=== PATIENT | female | born 1970 | race Caucasian/White ===

== ENCOUNTER 2017-10-03 14:37 | Emergency (ER) | payer OTHER ==
[~2017-10-03] VITALS: Ht 162.6 cm; Wt 68.0 kg
[~2017-10-03 14:37] MED LIST: ABILIFY; ALBU90OI INH; AMOCLA500 PO; AMOCLA875 PO; AMOX500 PO; ANTOXYBENA OT; ARIP10 PO; ARIP20 PO; Amoxicillin500 MG PO; BENZ100A PO; CALCA500CH PO; CARI350; CEPH500; CEPH500 PO; CETI10 PO; CIME400 PO; CIPR500 PO; CLIN150 PO; CLIN300 PO; CLOT1TC TOP; CONESTTC PV; CYCL10 PO; Cleocin HCl300 MG PO; DIPATR PO; DIPH25 PO; DIPH50 PO; DOXY100 PO; Doxycycline Mo100 M1 PO; HYDACE5 PO; IBUP600 PO; IBUP800; IBUP800 PO; KETO15TC TP; LORA10ER PO; METR500 PO; MOMENI; MULVITMINE PO; MUPI2TC TOP; MUPIROCIN15 GM TOP; Murine Ear Wax15 ML OT; NAPR500 PO; NAPR550 PO; NEOPOLHCSU AD; NEOPOLHCSU OT; NEOPOLHYDS OT; NITR100CA PO; Naprosyn500 MG PO; ONDA4 PO; PENVK500 PO; PERM5TC TOP; PRED20 PO; PROM25 PO; Peridex480 ML SS; QUET25 PO; RISP2 PO; RXCLIN PO; RXHYDACE PO; SPACE CHAMBER1 EACH MC; SULTRIDS PO; Seroquel PO; TRAM50 PO; Veetids 500500 MG PO; Vibramycin100 MG PO; [UNRECOGNIZED DRUG - REMARK]
[2017-10-03 16:20] LABS: Source, Urine Clean Catch
[2017-10-03 16:23] LABS: Bilirubin, Urine Neg (Neg); Blood, Urine Neg (Neg); Glucose Qualitative, Urine Neg (Neg); Ketones, Urine Neg (Neg); Leukocyte Esterase, Urine Neg (Neg); Nitrite, Urine Neg (Neg); Protein, Urine Neg (Neg); Urobilinogen, Urine NORM (Normal)
[2017-10-03 16:37] LABS: Appearance, Urine Hazy (Clear); Color, Urine Yellow (P-Yellow)
[2017-10-03 16:38] LABS: Bacteria Many /hpf; Red Blood Cells, Urine 0-2 /hpf (0-2); Squamous Epithelial Cells Many /hpf (Few)
[2017-10-03] MEDS ORDERED: Flagyl500 MG PO (20:18)
[2017-10-03] MEDS ORDERED: Diflucan150 MG PO (20:18)
[2017-10-03 21:14] LABS: Candida species (DNA Probe) Negative (NEGATIVE); G. vaginalis (DNA Probe) Positive (NEGATIVE); T. vaginalis (DNA Probe) Negative (NEGATIVE)
[2018-03-31] MEDS ORDERED: Monodox100 MG PO (13:53)
== END 2017-10-03 20:42 | disposition home or self-care (01) ==
LOC: ER 14:37
PROVIDERS: Emergency Medicine
DX: N72 Inflammatory disease of cervix uteri (principal); B96.89 Other specified bacterial agents as the cause of diseases classified elsewhere; Z88.2 Allergy status to sulfonamides; Z79.899 Other long term (current) drug therapy; Z86.19 Personal history of other infectious and parasitic diseases; Z87.891 Personal history of nicotine dependence
CPT/HCPCS: 81001; 81025; 87086; 87480; 87491; 87510; 87591; 87660; 96372; 99284; J0696

== ENCOUNTER 2018-04-17 14:13 | Emergency (ER) | payer OTHER ==
[~2018-04-17] VITALS: Ht 162.6 cm; Wt 68.0 kg
[~2018-04-17 14:13] MED LIST changes: +Diflucan150 MG PO; +Flagyl500 MG PO; +Monodox100 MG PO
[2018-04-17] MEDS ORDERED: Bactrim Ds Tab1 EACH PO (14:59)
[2018-04-17] MEDS ORDERED: Keflex500 MG PO (14:59)
== END 2018-04-17 15:08 | disposition home or self-care (01) ==
LOC: ER 14:13
DX: L03.116 Cellulitis of left lower limb (principal); F20.9 Schizophrenia, unspecified; F17.200 Nicotine dependence, unspecified, uncomplicated; Z79.899 Other long term (current) drug therapy
CPT/HCPCS: 81000; 99283

== ENCOUNTER → 2018-10-19 | Outpatient (CLI) | payer OTHER ==
[~2018-10-19] MED LIST changes: +Bactrim Ds Tab1 EACH PO; +Keflex500 MG PO
[2018-10-23 09:14] LABS: CHLAMYDIA BY NAA Negative (Negative); GONOCOCCUS BY NAA Negative (Negative); TRICH VAG BY NAA Negative (Negative)
== END | disposition home or self-care (01) ==
LOC: LAB SHORT 17:43 → LAB 17:43
PROVIDERS: Nurse Practitioner Family
DX: N91.2 Amenorrhea, unspecified (principal); Z72.51 High risk heterosexual behavior
CPT/HCPCS: 87491; 87591; 87661

== ENCOUNTER → 2018-12-08 | Outpatient (CLI) | payer OTHER ==
[2018-12-08 16:44] LABS: BASOPHILS ABSOLUTE AUTO 0.05 K/mm3 (0.00-0.23); BASOPHILS PERCENT AUTO 1 % (0-2); EOSINOPHILS ABSOLUTE AUTO 0.11 K/mm3 (0.00-0.68); EOSINOPHILS PERCENT AUTO 2 % (0-6); Hematocrit 36.4 % (33.0-51.0); Hemoglobin 12.5 g/dL (11.5-16.0); IMMATURE GRAN ABSOLUTE AUTO 0.01 K/mm3 (0.00-0.10); IMMATURE GRAN PERCENT AUTO 0 % (0-1); LYMPHOCYTES ABSOLUTE AUTO 2.31 K/mm3 (0.84-5.20); LYMPHOCYTES PERCENT AUTO 40 % (21-46); MONOCYTES ABSOLUTE AUTO 0.37 K/mm3 (0.16-1.47); MONOCYTES PERCENT AUTO 6 % (4-13); Mean Corpuscular HGB 29.6 pg (26.0-34.0); Mean Corpuscular HGB Conc 34.3 g/dL (31.5-36.5); Mean Corpuscular Volume 86 fL (80-100); Mean Platelet Volume 8.6 fL (9.1-12.4); NEUTROPHILS ABSOLUTE AUTO 2.95 K/mm3 (1.96-9.15); NEUTROPHILS PERCENT AUTO 51 % (41-73); Platelet Count 345 K/mm3 (150-400); RDW Coefficient Variation 12.5 % (11.7-14.2); RDW Standard Deviation 38.8 fL (35.1-46.3); Red Blood Cell Count 4.22 M/mm3 (3.80-5.20)
[2018-12-08 16:54] LABS: Albumin, Blood 4.3 g/dL (3.4-5.0); Albumin/Globulin Ratio 1.2 (0.8-1.8); Bilirubin, Total 0.4 mg/dL (0.1-1.0); Calcium, Blood 9.2 mg/dL (8.5-10.1); Globulin, Blood 3.5 g/dL (2.2-4.0); Potassium, Blood 3.6 mmol/L (3.5-5.5); Total Protein, Blood 7.8 g/dL (6.4-8.2)
== END | disposition home or self-care (01) ==
LOC: LAB EV 16:38 → LAB SHORT 16:38
PROVIDERS: Physician Assistant
DX: L08.9 Local infection of the skin and subcutaneous tissue, unspecified (principal)
CPT/HCPCS: 36415; 80053; 85025

== ENCOUNTER 2019-03-11 16:32 | Emergency (ER) | payer OTHER ==
[~2019-03-11] VITALS: Ht 162.6 cm; Wt 65.8 kg
[2019-03-11] MEDS ORDERED: Monodox100 MG PO (17:23)
[2019-03-11] MEDS ORDERED: CEPH500 PO (17:23)
[2019-03-11] MEDS ORDERED: IBUP800 PO (17:26)
== END 2019-03-11 17:32 | disposition home or self-care (01) ==
LOC: ER 16:32
DX: L02.416 Cutaneous abscess of left lower limb (principal); L03.116 Cellulitis of left lower limb; Z79.899 Other long term (current) drug therapy; F43.10 Post-traumatic stress disorder, unspecified; F20.9 Schizophrenia, unspecified; F17.200 Nicotine dependence, unspecified, uncomplicated
CPT/HCPCS: 99282

== ENCOUNTER → 2019-03-16 | Outpatient (CLI) | payer OTHER ==
[2019-03-18 07:07] LABS: CHLAMYDIA TRACHOMATIS, NAA Negative (Negative); NEISSERIA GONORRHOEAE, NAA Negative (Negative)
[2019-03-20 15:07] LABS: HPV 16 Negative (Negative); HPV 18 Negative (Negative); HPV OTHER HR TYPES Negative (Negative)
== END | disposition home or self-care (01) ==
LOC: LAB 14:00 → LAB SHORT 14:00
PROVIDERS: Nurse Practitioner Family
DX: Z01.419 Encounter for gynecological examination (general) (routine) without abnormal findings (principal)
CPT/HCPCS: 87491; 87591; 87624; G0123

== ENCOUNTER 2019-03-24 17:37 | Emergency (ER) | payer OTHER ==
[~2019-03-24] VITALS: Ht 162.6 cm; Wt 66.2 kg
[2019-03-24] MEDS ORDERED: Monodox100 MG PO (19:07)
[2019-03-24] MEDS ORDERED: IBUP600 PO (19:07)
== END 2019-03-24 19:16 | disposition home or self-care (01) ==
LOC: ER 17:37
DX: B37.3 Candidiasis of vulva and vagina (principal); L02.414 Cutaneous abscess of left upper limb; L02.413 Cutaneous abscess of right upper limb; L02.416 Cutaneous abscess of left lower limb; L02.415 Cutaneous abscess of right lower limb; Z76.0 Encounter for issue of repeat prescription; Z88.2 Allergy status to sulfonamides; Z79.899 Other long term (current) drug therapy; F43.10 Post-traumatic stress disorder, unspecified; F20.9 Schizophrenia, unspecified; F17.200 Nicotine dependence, unspecified, uncomplicated
CPT/HCPCS: 99283

== ENCOUNTER 2019-07-10 11:46 | Emergency (ER) | payer OTHER ==
[~2019-07-10] VITALS: Ht 162.6 cm; Wt 54.4 kg
== END 2019-07-10 13:22 | disposition home or self-care (01) ==
LOC: ER 11:46
DX: F41.9 Anxiety disorder, unspecified (principal); F20.9 Schizophrenia, unspecified; Z88.2 Allergy status to sulfonamides; Z79.899 Other long term (current) drug therapy
CPT/HCPCS: 99283

== ENCOUNTER 2019-08-30 12:11 | Observation (INO) | payer OTHER ==
[~2019-08-30] VITALS: Ht 162.6 cm; Wt 54.4 kg
[2019-08-30 13:37] LABS: Source, Urine Catheter
[2019-08-30 13:42] LABS: Blood, Urine Neg (Neg); Glucose Qualitative, Urine Neg (Neg); Ketones, Urine 3+ (Neg); Leukocyte Esterase, Urine 1+ (Neg); Nitrite, Urine Neg (Neg); Protein, Urine 1+ (Neg); Urobilinogen, Urine 2+ (Normal)
[2019-08-30 13:56] LABS: U Amphetamine Screen DETECTED; U Barbituate Screen Not Detected; U Benzodiazapine Screen Not Detected; U Buprenorphine Screen Not Detected; U Cannabinoids Screen Not Detected; U Cocaine Screen Not Detected; U Methadone Screen Not Detected; U Methamphetamine Screen Not Detected; U Opiates Screen Not Detected; U Oxycodone Screen Not Detected; U Phencyclidine Screen Not Detected; U Propoxyphene Screen Not Detected
[2019-08-30 13:58] LABS: Appearance, Urine Hazy (Clear); Bilirubin, Urine 1+ (Neg); Color, Urine Yellow (P-Yellow)
[2019-08-30 13:59] LABS: Bacteria Mod /hpf; Calcium Oxalate Crystals Mod /hpf; Mucus Mod (0-Heavy); Red Blood Cells, Urine 0-2 /hpf (0-2); Squamous Epithelial Cells Few /hpf (Few)
[2019-08-30 15:06] LABS: BASOPHILS ABSOLUTE AUTO 0.03 K/mm3 (0.00-0.23); BASOPHILS PERCENT AUTO 0 % (0-2); EOSINOPHILS ABSOLUTE AUTO 0.06 K/mm3 (0.00-0.68); EOSINOPHILS PERCENT AUTO 1 % (0-6); Hematocrit 45.5 % (33.0-51.0); Hemoglobin 14.7 g/dL (11.5-16.0); IMMATURE GRAN ABSOLUTE AUTO 0.01 K/mm3 (0.00-0.10); IMMATURE GRAN PERCENT AUTO 0 % (0-1); LYMPHOCYTES ABSOLUTE AUTO 1.43 K/mm3 (0.84-5.20); LYMPHOCYTES PERCENT AUTO 20 % (21-46); MONOCYTES ABSOLUTE AUTO 0.34 K/mm3 (0.16-1.47); MONOCYTES PERCENT AUTO 5 % (4-13); Mean Corpuscular HGB 29.4 pg (26.0-34.0); Mean Corpuscular HGB Conc 32.3 g/dL (31.5-36.5); Mean Corpuscular Volume 91 fL (80-100); NEUTROPHILS ABSOLUTE AUTO 5.19 K/mm3 (1.96-9.15); NEUTROPHILS PERCENT AUTO 74 % (41-73); RDW Coefficient Variation 12.8 % (11.7-14.2); RDW Standard Deviation 42.8 fL (35.1-46.3); White Blood Cell Count 7.06 K/mm3 (4.00-11.30)
[2019-08-30 15:10] LABS: Mean Platelet Volume 9.8 fL (9.1-12.4); Platelet Count 317 K/mm3 (150-400)
[2019-08-30 15:27] LABS: Alanine Aminotransfer (ALT/SGP 30 U/L (12-78); Albumin, Blood 4.2 g/dL (3.4-5.0); Albumin/Globulin Ratio 1.1 (0.8-1.8); Alk Phos 68 U/L (50-136); Anion Gap 8 mmol/L (6-16); Aspartate Aminotrans (AST/SGOT 28 U/L (12-37); Bilirubin, Total 0.7 mg/dL (0.1-1.0); Blood Urea Nitrogen 17 mg/dL (8-24); Bun/Creatinine Ratio 26.3 (12.0-20.0); CO2, Blood 25 mmol/L (21-32); Calcium, Blood 9.7 mg/dL (8.5-10.1); Chloride, Blood 110 mmol/L (98-108); Creatinine, Blood 0.65 mg/dL (0.40-1.00); Globulin, Blood 3.9 g/dL (2.2-4.0); Glomerular Filtration Rate >60 (60-); Glucose, Blood 80 mg/dL (70-99); Potassium, Blood 4.3 mmol/L (3.5-5.5); Sodium, Blood 143 mmol/L (136-145); Total Protein, Blood 8.1 g/dL (6.4-8.2)
[2019-08-30 15:36] LABS: Ethanol (Alcohol), Blood, Med <3 mg/dL
== END 2019-08-31 03:44 | disposition home or self-care (01) ==
LOC: ER 12:11 → EOR 12:12
PROVIDERS: Emergency Medicine; ADMIT Emergency Medicine
DX: F15.188 Other stimulant abuse with other stimulant-induced disorder (principal); F20.0 Paranoid schizophrenia; F43.10 Post-traumatic stress disorder, unspecified; F17.210 Nicotine dependence, cigarettes, uncomplicated; B19.20 Unspecified viral hepatitis C without hepatic coma; Z88.2 Allergy status to sulfonamides
CPT/HCPCS: 80053; 81001; 81025; 84443; 85025; 87086; 96360; 96361; 96372-59; 99285-25; G0378; G0480; J1200; J1630; J2060; J7030; Q3014

== ENCOUNTER 2019-11-07 16:20 | Observation (INO) | payer OTHER ==
[~2019-11-07] VITALS: Ht 165.1 cm; Wt 45.4 kg
[2019-11-07 17:20] LABS: BASOPHILS ABSOLUTE AUTO 0.03 K/mm3 (0.00-0.23); BASOPHILS PERCENT AUTO 0 % (0-2); EOSINOPHILS ABSOLUTE AUTO 0.03 K/mm3 (0.00-0.68); EOSINOPHILS PERCENT AUTO 0 % (0-6); Hematocrit 51.8 % (33.0-51.0); Hemoglobin 16.7 g/dL (11.5-16.0); IMMATURE GRAN ABSOLUTE AUTO 0.01 K/mm3 (0.00-0.10); IMMATURE GRAN PERCENT AUTO 0 % (0-1); LYMPHOCYTES ABSOLUTE AUTO 2.17 K/mm3 (0.84-5.20); LYMPHOCYTES PERCENT AUTO 32 % (21-46); MONOCYTES ABSOLUTE AUTO 0.32 K/mm3 (0.16-1.47); MONOCYTES PERCENT AUTO 5 % (4-13); Mean Corpuscular HGB 29.2 pg (26.0-34.0); Mean Corpuscular HGB Conc 32.2 g/dL (31.5-36.5); Mean Corpuscular Volume 91 fL (80-100); Mean Platelet Volume 8.3 fL (9.1-12.4); NEUTROPHILS ABSOLUTE AUTO 4.24 K/mm3 (1.96-9.15); NEUTROPHILS PERCENT AUTO 63 % (41-73); Platelet Count 398 K/mm3 (150-400); RDW Coefficient Variation 13.2 % (11.7-14.2); Red Blood Cell Count 5.72 M/mm3 (3.80-5.20)
[2019-11-07 17:52] LABS: Alanine Aminotransfer (ALT/SGP 33 U/L (12-78); Albumin, Blood 4.3 g/dL (3.4-5.0); Albumin/Globulin Ratio 0.9 (0.8-1.8); Alk Phos 79 U/L (50-136); Anion Gap 5 mmol/L (6-16); Aspartate Aminotrans (AST/SGOT 22 U/L (12-37); Bilirubin, Total 0.7 mg/dL (0.1-1.0); Blood Urea Nitrogen 21 mg/dL (8-24); Bun/Creatinine Ratio 34.6 (12.0-20.0); CO2, Blood 28 mmol/L (21-32); Calcium, Blood 10.1 mg/dL (8.5-10.1); Chloride, Blood 106 mmol/L (98-108); Creatinine, Blood 0.61 mg/dL (0.40-1.00); Ethanol (Alcohol), Blood, Med <3 mg/dL; Globulin, Blood 4.6 g/dL (2.2-4.0); Glomerular Filtration Rate >60 (60-); Glucose, Blood 81 mg/dL (70-99); Potassium, Blood 4.2 mmol/L (3.5-5.5); Sodium, Blood 139 mmol/L (136-145); Total Protein, Blood 8.9 g/dL (6.4-8.2)
[2019-11-07 22:41] LABS: Source, Urine Clean Catch
[2019-11-07 22:49] LABS: Blood, Urine Neg (Neg); Glucose Qualitative, Urine Neg (Neg); Ketones, Urine 3+ (Neg); Leukocyte Esterase, Urine 1+ (Neg); Nitrite, Urine Neg (Neg); Protein, Urine 1+ (Neg); Urobilinogen, Urine 1+ (Normal)
[2019-11-07 23:00] LABS: U Amphetamine Screen Not Detected; U Barbituate Screen Not Detected; U Benzodiazapine Screen Not Detected; U Buprenorphine Screen Not Detected; U Cannabinoids Screen Not Detected; U Cocaine Screen Not Detected; U Methadone Screen Not Detected; U Methamphetamine Screen DETECTED; U Opiates Screen Not Detected; U Oxycodone Screen Not Detected; U Phencyclidine Screen Not Detected; U Propoxyphene Screen Not Detected
[2019-11-07 23:01] LABS: Appearance, Urine Hazy (Clear); Bilirubin, Urine 1+ (Neg); Color, Urine Yellow (P-Yellow)
[2019-11-07 23:02] LABS: Amorphous Light (0-Heavy); Bacteria Mod /hpf; Calcium Oxalate Crystals Few /hpf; Mucus Heavy (0-Heavy); Red Blood Cells, Urine Not Seen /hpf (0-2); Squamous Epithelial Cells Few /hpf (Few)
== END 2019-11-13 14:15 | disposition home or self-care (01) ==
LOC: ER 16:20 → EOR 16:21
PROVIDERS: Physician Assistant; ADMIT Emergency Medicine
DX: R62.7 Adult failure to thrive (principal); F20.9 Schizophrenia, unspecified; F17.210 Nicotine dependence, cigarettes, uncomplicated; R53.81 Other malaise; F19.10 Other psychoactive substance abuse, uncomplicated; N39.0 Urinary tract infection, site not specified; F29 Unspecified psychosis not due to a substance or known physiological condition; Z88.2 Allergy status to sulfonamides
CPT/HCPCS: 36415; 80053; 81001; 81025; 84443; 85025; 87086; 93005; 93010; 99285-25; A9270-GY; G0378; G0480

== ENCOUNTER 2020-01-29 14:39 | Emergency (ER) | payer OTHER ==
[~2020-01-29] VITALS: Ht 162.6 cm; Wt 49.9 kg
== END 2020-01-29 15:28 | disposition home or self-care (01) ==
LOC: ER 14:39
DX: F20.5 Residual schizophrenia (principal); F19.10 Other psychoactive substance abuse, uncomplicated; F17.200 Nicotine dependence, unspecified, uncomplicated; Z91.14 Patient's other noncompliance with medication regimen; Z59.0 Homelessness; Z88.2 Allergy status to sulfonamides
CPT/HCPCS: 99284

== ENCOUNTER 2020-04-10 15:33 | Observation (INO) | payer OTHER ==
[~2020-04-10] VITALS: Ht 162.6 cm; Wt 50.0 kg
[~2020-04-10 15:33] MED LIST changes: +ACET325 PO; +MIRALAX17 GM PO
[2020-04-10] MEDS ORDERED: Seroquel Xr50 MG PO (15:49)
[2020-04-21 00:32] LABS: Source, Urine Voided
[2020-04-21 00:37] LABS: Appearance, Urine Clear (Clear); Bilirubin, Urine Neg (Neg); Blood, Urine Neg (Neg); Color, Urine Yellow (P-Yellow); Glucose Qualitative, Urine Neg (Neg); Ketones, Urine Neg (Neg); Leukocyte Esterase, Urine 2+ (Neg); Nitrite, Urine Neg (Neg); Protein, Urine Neg (Neg); Specific Gravity, Urine 1.025 (1.003-1.022); Urobilinogen, Urine NORM (Normal)
[2020-04-21 00:43] LABS: Bacteria Mod /hpf; Red Blood Cells, Urine 0-2 /hpf (0-2); Squamous Epithelial Cells Mod /hpf (Few)
[2020-04-22 09:29] LABS: BASOPHILS ABSOLUTE AUTO 0.03 K/mm3 (0.00-0.23); BASOPHILS PERCENT AUTO 1 % (0-2); EOSINOPHILS ABSOLUTE AUTO 0.07 K/mm3 (0.00-0.68); EOSINOPHILS PERCENT AUTO 1 % (0-6); Hematocrit 41.1 % (33.0-51.0); Hemoglobin 12.8 g/dL (11.5-16.0); IMMATURE GRAN ABSOLUTE AUTO 0.01 K/mm3 (0.00-0.10); IMMATURE GRAN PERCENT AUTO 0 % (0-1); LYMPHOCYTES ABSOLUTE AUTO 2.02 K/mm3 (0.84-5.20); LYMPHOCYTES PERCENT AUTO 36 % (21-46); MONOCYTES PERCENT AUTO 7 % (4-13); Mean Corpuscular HGB 29.8 pg (26.0-34.0); Mean Corpuscular HGB Conc 31.1 g/dL (31.5-36.5); Mean Corpuscular Volume 96 fL (80-100); NEUTROPHILS ABSOLUTE AUTO 3.02 K/mm3 (1.96-9.15); NEUTROPHILS PERCENT AUTO 54 % (41-73); Platelet Count 374 K/mm3 (150-400); RDW Coefficient Variation 14.3 % (11.7-14.2); RDW Standard Deviation 50.4 fL (35.1-46.3); Red Blood Cell Count 4.29 M/mm3 (3.80-5.20); White Blood Cell Count 5.55 K/mm3 (4.00-11.30)
[2020-04-22 09:41] LABS: Acetaminophen, Random 2.2 ug/mL (10.0-30.0); Alanine Aminotransfer (ALT/SGP 67 U/L (12-78); Albumin, Blood 3.8 g/dL (3.4-5.0); Alk Phos 64 U/L (50-136); Anion Gap 5 mmol/L (6-16); Aspartate Aminotrans (AST/SGOT 33 U/L (12-37); Bilirubin, Total 0.2 mg/dL (0.1-1.0); Blood Urea Nitrogen 22 mg/dL (8-24); Bun/Creatinine Ratio 41.3 (12.0-20.0); CO2, Blood 28 mmol/L (21-32); Calcium, Blood 9.1 mg/dL (8.5-10.1); Chloride, Blood 106 mmol/L (98-108); Creatinine, Blood 0.53 mg/dL (0.40-1.00); Ethanol (Alcohol), Blood, Med 6 mg/dL; Glomerular Filtration Rate >60 (60-); Glucose, Blood 76 mg/dL (70-99); Potassium, Blood 4.8 mmol/L (3.5-5.5); Sodium, Blood 139 mmol/L (136-145); Total Protein, Blood 7.8 g/dL (6.4-8.2)
[2020-04-27 18:25] LABS: Source, Urine Clean Catch
[2020-04-27 18:27] LABS: Bilirubin, Urine Neg (Neg); Blood, Urine 1+ (Neg); Glucose Qualitative, Urine Neg (Neg); Ketones, Urine Neg (Neg); Leukocyte Esterase, Urine 1+ (Neg); Nitrite, Urine Neg (Neg); Protein, Urine Neg (Neg); Urobilinogen, Urine NORM (Normal)
[2020-04-27 18:36] LABS: Appearance, Urine Clear (Clear); Color, Urine Pale Yellow (P-Yellow)
[2020-04-27 18:38] LABS: Squamous Epithelial Cells Few /hpf (Few); White Blood Cells, Urine 0-2 /hpf (0-5)
[2020-04-27 18:39] LABS: Bacteria Rare /hpf
== END 2020-05-01 13:30 ==
LOC: ER 15:33 → EOR 15:34
PROVIDERS: Emergency Medicine; ADMIT Emergency Medicine
DX: F23 Brief psychotic disorder (principal); Z20.828 Contact with and (suspected) exposure to other viral communicable diseases; Z88.2 Allergy status to sulfonamides
CPT/HCPCS: 80053; 81001; 85025; 87086; 99285; G0378; G0480; U0002

== ENCOUNTER → 2020-05-26 | Outpatient (CLI) | payer OTHER ==
[~2020-05-26] MED LIST changes: +Seroquel Xr50 MG PO
[2020-05-27 11:13] LABS: Candida species (DNA Probe) Negative (NEGATIVE); G. vaginalis (DNA Probe) Negative (NEGATIVE); T. vaginalis (DNA Probe) Negative (NEGATIVE)
== END ==
LOC: LAB 19:58 → LAB SHORT 19:58
PROVIDERS: Nurse Practitioner
DX: L29.3 Anogenital pruritus, unspecified (principal)
CPT/HCPCS: 87480; 87510; 87660

== ENCOUNTER → 2020-06-16 | Outpatient (CLI) | payer OTHER ==
[2020-06-16 13:22] LABS: Adenovirus F 40/41 Not Detected (NOT DETECT); Astrovirus Not Detected (NOT DETECT); Campylobacter Sp Not Detected (NOT DETECT); Cryptosporidium Not Detected (NOT DETECT); Cyclospora Cayetanensis Not Detected (NOT DETECT); E. Coli O157 Not Detected (NOT DETECT); Entamoeba Histolytica Not Detected (NOT DETECT); Enteroaggregative E. coli-EAEC Not Detected (NOT DETECT); Enteropathogenic E. coli-EPEC Not Detected (NOT DETECT); Enterotoxigenic E. coli-ETEC Not Detected (NOT DETECT); Giardia Lamblia Not Detected (NOT DETECT); Norovirus GI/GII Not Detected (NOT DETECT); Plesiomonas Shigelloides Not Detected (NOT DETECT); Rotavirus A Not Detected (NOT DETECT); Salmonella Sp Not Detected (NOT DETECT); Sapovirus Not Detected (NOT DETECT); Shiga Toxin-prod E. coli-STEC Not Detected (NOT DETECT); Shigella/Enteroin E. coli-EIEC Not Detected (NOT DETECT); Vibrio Cholerae Not Detected (NOT DETECT); Vibrio Sp Not Detected (NOT DETECT); Yersinia Enterocolitica Not Detected (NOT DETECT)
== END | disposition home or self-care (01) ==
LOC: LAB FUT 03-16 14:50 → EDSTATUS 03-16 14:50 → LAB SHORT 07:00 → LAB 07:00
PROVIDERS: Nurse Practitioner
DX: R19.7 Diarrhea, unspecified (principal)
CPT/HCPCS: 0097U

== ENCOUNTER 2021-02-14 13:54 | Emergency (ER) | payer OTHER ==
[~2021-02-14] VITALS: Ht 162.6 cm; Wt 68.0 kg
[2021-02-14 14:32] LABS: Source, Urine Clean Catch
[2021-02-14 14:41] LABS: Appearance, Urine Clear (Clear); Bilirubin, Urine Neg (Neg); Blood, Urine Neg (Neg); Color, Urine Yellow (P-Yellow); Glucose Qualitative, Urine Neg (Neg); Ketones, Urine Neg (Neg); Leukocyte Esterase, Urine Neg (Neg); Nitrite, Urine Neg (Neg); Protein, Urine Neg (Neg); Specific Gravity, Urine 1.015 (1.003-1.022); Urobilinogen, Urine NORM (Normal); pH, Urine 6.5 (5.0-8.0)
[2021-02-14 14:48] LABS: BASOPHILS ABSOLUTE AUTO 0.03 K/mm3 (0.00-0.23); BASOPHILS PERCENT AUTO 1 % (0-2); EOSINOPHILS PERCENT AUTO 2 % (0-6); Hematocrit 39.2 % (33.0-51.0); Hemoglobin 12.8 g/dL (11.5-16.0); IMMATURE GRAN ABSOLUTE AUTO 0.01 K/mm3 (0.00-0.10); IMMATURE GRAN PERCENT AUTO 0 % (0-1); LYMPHOCYTES ABSOLUTE AUTO 2.43 K/mm3 (0.84-5.20); LYMPHOCYTES PERCENT AUTO 44 % (21-46); MONOCYTES ABSOLUTE AUTO 0.37 K/mm3 (0.16-1.47); MONOCYTES PERCENT AUTO 7 % (4-13); Mean Corpuscular HGB 28.8 pg (26.0-34.0); Mean Corpuscular HGB Conc 32.7 g/dL (31.5-36.5); Mean Corpuscular Volume 88 fL (80-100); Mean Platelet Volume 8.3 fL (9.1-12.4); NEUTROPHILS ABSOLUTE AUTO 2.57 K/mm3 (1.96-9.15); NEUTROPHILS PERCENT AUTO 47 % (41-73); Platelet Count 365 K/mm3 (150-400); RDW Coefficient Variation 12.5 % (11.7-14.2); RDW Standard Deviation 40.3 fL (35.1-46.3); Red Blood Cell Count 4.45 M/mm3 (3.80-5.20); White Blood Cell Count 5.51 K/mm3 (4.00-11.30)
[2021-02-14 15:12] LABS: Alanine Aminotransfer (ALT/SGP 46 U/L (12-78); Albumin, Blood 3.6 g/dL (3.4-5.0); Albumin/Globulin Ratio 0.9 (0.8-1.8); Alk Phos 108 U/L (50-136); Anion Gap 3 mmol/L (6-16); Aspartate Aminotrans (AST/SGOT 22 U/L (12-37); Bilirubin, Total 0.3 mg/dL (0.1-1.0); Blood Urea Nitrogen 14 mg/dL (8-24); Bun/Creatinine Ratio 15.9 (12.0-20.0); CO2, Blood 29 mmol/L (21-32); Calcium, Blood 9.1 mg/dL (8.5-10.1); Chloride, Blood 112 mmol/L (98-108); Creatinine, Blood 0.88 mg/dL (0.40-1.00); Glomerular Filtration Rate >60 (60-); Glucose, Blood 100 mg/dL (70-99); Potassium, Blood 3.7 mmol/L (3.5-5.5); Sodium, Blood 144 mmol/L (136-145); Total Protein, Blood 7.6 g/dL (6.4-8.2)
== END 2021-02-14 15:30 | disposition home or self-care (01) ==
LOC: ER 13:54
PROVIDERS: Emergency Medicine
DX: R10.9 Unspecified abdominal pain (principal); R11.0 Nausea; Z87.891 Personal history of nicotine dependence
CPT/HCPCS: 80053; 81003; 83690; 85025; 93005; 93010; 99284-25

== ENCOUNTER → 2021-06-18 | Outpatient (CLI) | payer OTHER | END | disposition home or self-care (01) | LOC: LAB SHORT 13:27 → LAB 13:27 | DX: M54.6 Pain in thoracic spine (principal) | CPT/HCPCS: 85651 ==

== ENCOUNTER 2023-03-22 16:56 | Observation (INO) | payer OTHER ==
[~2023-03-22] VITALS: Ht 162.6 cm; Wt 63.5 kg
[~2023-03-22 16:56] MED LIST changes: +OLAN10 PO
[2023-03-22 18:04] LABS: BASOPHILS ABSOLUTE AUTO 0.03 K/mm3 (0.00-0.23); BASOPHILS PERCENT AUTO 0 % (0-2); EOSINOPHILS ABSOLUTE AUTO 0.01 K/mm3 (0.00-0.68); EOSINOPHILS PERCENT AUTO 0 % (0-6); Hematocrit 38.6 % (33.0-51.0); Hemoglobin 13.2 g/dL (11.5-16.0); IMMATURE GRAN ABSOLUTE AUTO 0.03 K/mm3 (0.00-0.10); IMMATURE GRAN PERCENT AUTO 0 % (0-1); LYMPHOCYTES ABSOLUTE AUTO 1.62 K/mm3 (0.84-5.20); LYMPHOCYTES PERCENT AUTO 14 % (21-46); MONOCYTES ABSOLUTE AUTO 0.94 K/mm3 (0.16-1.47); MONOCYTES PERCENT AUTO 8 % (4-13); Mean Corpuscular HGB 29.1 pg (26.0-34.0); Mean Corpuscular HGB Conc 34.2 g/dL (31.5-36.5); Mean Corpuscular Volume 85 fL (80-100); Mean Platelet Volume 8.8 fL (9.1-12.4); NEUTROPHILS ABSOLUTE AUTO 9.05 K/mm3 (1.96-9.15); NEUTROPHILS PERCENT AUTO 77 % (41-73); Platelet Count 388 K/mm3 (150-400); RDW Coefficient Variation 12.6 % (11.7-14.2); RDW Standard Deviation 38.9 fL (35.1-46.3); Red Blood Cell Count 4.54 M/mm3 (3.80-5.20); White Blood Cell Count 11.68 K/mm3 (4.00-11.30)
[2023-03-22 18:25] LABS: Salicylate <1.7 mg/dL (2.8-20.0)
[2023-03-22 18:51] LABS: Alanine Aminotransfer (ALT/SGP 42 U/L (12-78); Albumin, Blood 3.9 g/dL (3.4-5.0); Albumin/Globulin Ratio 0.9 (0.8-1.8); Alk Phos 81 U/L (50-136); Anion Gap 9 mmol/L (6-16); Aspartate Aminotrans (AST/SGOT 35 U/L (12-37); Bilirubin, Total 1.2 mg/dL (0.1-1.0); Blood Urea Nitrogen 21 mg/dL (8-24); CO2, Blood 25 mmol/L (21-32); Calcium, Blood 9.6 mg/dL (8.5-10.1); Chloride, Blood 100 mmol/L (98-108); Creatinine, Blood 0.75 mg/dL (0.40-1.00); Globulin, Blood 4.2 g/dL (2.2-4.0); Glomerular Filtration Rate 96 (60-); Glucose, Blood 116 mg/dL (70-99); Potassium, Blood 3.4 mmol/L (3.5-5.5); Sodium, Blood 134 mmol/L (136-145); Total Protein, Blood 8.1 g/dL (6.4-8.2)
[2023-03-22 19:02] LABS: Acetaminophen, Random <2.0 ug/mL (10.0-30.0); Ethanol (Alcohol), Blood, Med <3 mg/dL
[2023-03-22] MEDS ORDERED: QUETIAPINE FUMA25 MG PO (19:13)
[2023-03-22 19:47] LABS: Source, Urine Clean Catch
[2023-03-22 19:51] LABS: Appearance, Urine Clear (Clear); Bilirubin, Urine Neg (Neg); Blood, Urine Neg (Neg); Color, Urine Yellow (P-Yellow); Glucose Qualitative, Urine Neg (Neg); Ketones, Urine 3+ (Neg); Leukocyte Esterase, Urine Neg (Neg); Nitrite, Urine Neg (Neg); Protein, Urine 1+ (Neg); Specific Gravity, Urine 1.025 (1.003-1.022); Urobilinogen, Urine 1+ (Normal)
[2023-03-22 20:00] LABS: U Amphetamine Screen DETECTED; U Barbituate Screen Not Detected; U Benzodiazapine Screen Not Detected; U Buprenorphine Screen Not Detected; U Cannabinoids Screen Not Detected; U Cocaine Screen Not Detected; U Methadone Screen Not Detected; U Methamphetamine Screen DETECTED; U Opiates Screen Not Detected; U Oxycodone Screen Not Detected; U Phencyclidine Screen Not Detected; U Propoxyphene Screen Not Detected
[2023-03-22 21:57] LABS: Influenza A, PCR NEGATIVE (NEGATIVE); Influenza B, PCR NEGATIVE (NEGATIVE); Resp Syncytial Virus, PCR NEGATIVE (NEGATIVE); SARS-Cov-2 (COVID-19) PCR, MMC NEGATIVE (NEGATIVE)
[2023-03-29 12:27] VITALS: BP 110/80
== END 2023-03-29 18:45 | disposition home or self-care (01) ==
LOC: ER 16:56 → EOR 16:57
PROVIDERS: ADMIT Emergency Medicine
DX: F20.9 Schizophrenia, unspecified (principal); Z88.2 Allergy status to sulfonamides; Z20.822 Contact with and (suspected) exposure to COVID-19
CPT/HCPCS: 0241U; 51701; 80053; 81025; 82550; 85025; 86592; 93005; 93010; 96372-59; 99285-25; A9270; G0378; G0480; J2060

== ENCOUNTER 2023-03-30 17:53 | Emergency (ER) | payer OTHER ==
[~2023-03-30] VITALS: Ht 162.6 cm; Wt 61.2 kg
[~2023-03-30 17:53] MED LIST changes: +QUETIAPINE FUMA25 MG PO
[2023-03-30 18:11] VITALS: BP 126/93
== END 2023-03-30 21:45 | disposition home or self-care (01) ==
LOC: ER 17:53
DX: L55.9 Sunburn, unspecified (principal); B19.20 Unspecified viral hepatitis C without hepatic coma; F17.200 Nicotine dependence, unspecified, uncomplicated; Z88.2 Allergy status to sulfonamides; Z91.018 Allergy to other foods
CPT/HCPCS: 99282

== ENCOUNTER 2023-04-03 15:50 | Observation (INO) | payer OTHER ==
[~2023-04-03] VITALS: Ht 162.6 cm; Wt 60.0 kg
[2023-04-03 17:10] LABS: BASOPHILS ABSOLUTE AUTO 0.05 K/mm3 (0.00-0.23); BASOPHILS PERCENT AUTO 0 % (0-2); EOSINOPHILS PERCENT AUTO 1 % (0-6); Hematocrit 44.4 % (33.0-51.0); Hemoglobin 14.9 g/dL (11.5-16.0); IMMATURE GRAN ABSOLUTE AUTO 0.04 K/mm3 (0.00-0.10); IMMATURE GRAN PERCENT AUTO 0 % (0-1); LYMPHOCYTES ABSOLUTE AUTO 2.61 K/mm3 (0.84-5.20); LYMPHOCYTES PERCENT AUTO 20 % (21-46); MONOCYTES ABSOLUTE AUTO 0.73 K/mm3 (0.16-1.47); MONOCYTES PERCENT AUTO 6 % (4-13); Mean Corpuscular HGB 28.9 pg (26.0-34.0); Mean Corpuscular HGB Conc 33.6 g/dL (31.5-36.5); Mean Corpuscular Volume 86 fL (80-100); Mean Platelet Volume 9.4 fL (9.1-12.4); NEUTROPHILS PERCENT AUTO 73 % (41-73); Platelet Count 532 K/mm3 (150-400); RDW Coefficient Variation 12.4 % (11.7-14.2); RDW Standard Deviation 39.4 fL (35.1-46.3); Red Blood Cell Count 5.16 M/mm3 (3.80-5.20); White Blood Cell Count 12.83 K/mm3 (4.00-11.30)
[2023-04-03 17:18] LABS: Source, Urine Clean Catch
[2023-04-03 17:22] LABS: Albumin, Blood 3.7 g/dL (3.4-5.0); Albumin/Globulin Ratio 0.8 (0.8-1.8); Bilirubin, Total 0.7 mg/dL (0.1-1.0); Bun/Creatinine Ratio 19.2 (12.0-20.0); Calcium, Blood 9.7 mg/dL (8.5-10.1); Creatinine, Blood 0.62 mg/dL (0.40-1.00); Globulin, Blood 4.5 g/dL (2.2-4.0); Potassium, Blood 4.4 mmol/L (3.5-5.5); Total Protein, Blood 8.2 g/dL (6.4-8.2)
[2023-04-03 17:30] LABS: Appearance, Urine Clear (Clear); Bilirubin, Urine Neg (Neg); Blood, Urine Neg (Neg); Color, Urine Yellow (P-Yellow); Glucose Qualitative, Urine Neg (Neg); Ketones, Urine 3+ (Neg); Leukocyte Esterase, Urine 1+ (Neg); Nitrite, Urine Neg (Neg); Protein, Urine 2+ (Neg); Specific Gravity, Urine 1.025 (1.003-1.022); Urobilinogen, Urine 2+ (Normal)
[2023-04-03 17:56] LABS: Bacteria Many /hpf; Mucus Heavy (0-Heavy); Squamous Epithelial Cells Mod /hpf (Few)
[2023-04-03 17:58] LABS: U Amphetamine Screen Not Detected; U Barbituate Screen Not Detected; U Benzodiazapine Screen Not Detected; U Buprenorphine Screen Not Detected; U Cannabinoids Screen Not Detected; U Cocaine Screen Not Detected; U Methadone Screen Not Detected; U Methamphetamine Screen Not Detected; U Opiates Screen Not Detected; U Oxycodone Screen Not Detected; U Phencyclidine Screen Not Detected; U Propoxyphene Screen Not Detected
[2023-04-03 18:53] LABS: Ethanol (Alcohol), Blood, Med <3 mg/dL; Salicylate <1.7 mg/dL (2.8-20.0)
[2023-04-03 18:58] LABS: Acetaminophen, Random <2.0 ug/mL (10.0-30.0)
[2023-04-07 17:53] LABS: Albumin, Blood 3.9 g/dL (3.4-5.0); Albumin/Globulin Ratio 0.9 (0.8-1.8); Bilirubin, Total 0.3 mg/dL (0.1-1.0); Bun/Creatinine Ratio 14.3 (12.0-20.0); Calcium, Blood 9.7 mg/dL (8.5-10.1); Creatinine, Blood 0.56 mg/dL (0.40-1.00); Globulin, Blood 4.4 g/dL (2.2-4.0); Potassium, Blood 4.3 mmol/L (3.5-5.5); Total Protein, Blood 8.3 g/dL (6.4-8.2)
--- NOTE | 2023-04-08 21:18 | NUR ---
PT CHART REVIEWED FOR ADMIT
[2023-04-08 22:21] VITALS: BP 124/79
--- NOTE | 2023-04-08 22:42 | NUR ---
ADMIT NOTE HANDOFF RECEIVED FROM MACHINE GUIDE BASE WINDER NATANAEL. PT ARRIVED TO FLOOR VIA WC. PT IS AMS/CONFUSED. PT ALLOWED US TO TAKE HER VITAL SIGNS. PT REFUSES TO BE TOUCHED OR WEIGHED. PT REFUSING MEDICINES. CHARGE INFORMED.
--- NOTE | 2023-04-09 02:04 | NUR ---
patient is refusing care, miriam tried multiple times to get her to use the restroom. left foot is pretty swollen, RN is aware. Miriam tried to get her to sit or lay down and she refuses to do so. you can see that she is in pain, but she says no to literally everything. will continue to monitor.
--- NOTE | 2023-04-09 04:33 | NUR ---
SHIFT SUMMARY ADMITTED FOR DECOMPENSATED SCHIZOPHRENIA DISORIENTATION. FULL CODE. PLAN IS FOR [facility]IP/INPATIENT PSYCH PLACEMENT. DR. BENNETT IS CONSULT. SHE HAS BEEN IN OUR CRISIS UNIT (ER) SINCE 03/04. SHE WAS ADMITTED TO MEDICAL FLOOR [facility]. SHE IS NON-REDIRECTABLE. SHE REFUSES ALL CARE AND ASSESSMENTS. SHE REFUSES ALL MEDICATIONS. SHE SPENT THIS SHIFT STANDING IN ONE SPOT THE ENTIRE TIME, REFUSING TO SIT OR LAY DOWN. SHE SEEMED VISIBLY EXHAUSTED BY THIS BEHAVIOR, BUT REFUSED ALL ATTEMPTS TO ENCOURAGE HER TO SIT. I ASSESSED FIRE SAFETY AND IGNITION RISK FOR THIS PT VISUALLY. SHE DOES NOT RESPOND TO QUESTIONS. SHE IS ON RA. SHE WILL NOT EAT OR DRINK EXCEPT FOR HALF OF A PUDDING CUP.
--- NOTE | 2023-04-09 12:07 | NUR ---
CALLED DR BOONE RE PT REFUSAL OF ASSESSMENT, VITALS, MEDICATIONS. STANDING IN MID ROOM. WET THROUGH ATTENDS AND PAPER GOWN. REFUSED A SHOWER BY AIDE. TRIED TURNING ON WATER AT SHOWER, SHE REFUSED TO TAKE. PRESENTS PARANOID OR UNABLE TO FOLLOW COMMANDS. STATES NO, I CANT TO THAT TO MOST QUESTIONS, ASKED FOR IDEAS.
--- NOTE | 2023-04-09 15:30 | NUR ---
CALLED DR LIN. PT ESCALATING . REFUSING ALL CARE. REFUSING TO CHANGE SELF, REFUSING TO TAKE SHOWER. WALKING ABOUT ROOM, VISUALLY URINE SOAKED, AGITATED. STATES NEEDS TO GO HOME. TO ORDER GUEVARA IM.
--- NOTE | 2023-04-09 16:09 | NUR ---
PT HAS BEEN REFUSING ANY CARE, REFUSED FOOD, FLUIDS, STATES HAS NO FEET, BUT FEET HURT, NOTE A SORE ON BOTTOM OF LEFT FOOT. BLACK SPOT IN MIDDLE, RED AROUND WOUND, FOOT INFLAMED AND RED WITH EDEMA NOTED. REFUSED PIC. FEET ARE PEELING. STATES IS NOT AWARE OF WHERE SHE IS. DENIES IS HOSPITAL. STATES CANNOT DRINK FLUIDS HAS NO FACE. ADMIN HALDOL WITH ASST OF FASTENER TECHNOLOGIST AND 2 RN AND 2 LIBRARIAN SPECIALIST. MOVED PT TO BED AND CHANGED INTO DRY ATTENDS AND PANTS. ATTENDS WERE SATURATED, PANTS WET. DR STOPPED BY AND INCREASED HALDOL. DR ENCOURAGE TO CHANGE DAILY AT LEAST. PT CONTINUED TO REFUSE DRINK OR MEDS.
--- NOTE | 2023-04-09 17:11 | NUR ---
PT HAS BEEN PACING T/O DAY. DOES NOT HAVE FEET, BUT COMPLAINES THE HURT. DOES NOT WANT ANYTHING TO DRINK, SHE HAS NO FACE. REFUSED V/S, MEDS, ASSESSMENTS. SPENT MOST OF DAY WITH WET ATTENDS, REGULARLY REFUSING TO BE CHANGED, NEW CLOTHES, EVEN TRIED OFFERING SHOWER BY AIDE. SHE FLATLY REFUSED ALL ASSISTANCE TO GET CHANGED. SHE ESCALATED THIS AFTERNOON. WHEN ADMIN HALDOL TO CALM, OBTAINED HELP TO ASSIST TO CHANGE PT WET ATTENDS AND PANTS. BOTTOM APPEARS INTACT. AIDE CLEANED AND WIPED PT. NEW ATTENDS PLACED. NOTED THAT HAS SORE ON BOTTOM LEFT FOOT. SHE REFUSED TO HAVE PICS TAKEN. DR NOTIFIED. HE CAME TO ROOM, VISUALIZED PT PACING. SHE REFUSED DR MOSLEY. NO OTHER CONCERNS NOTED. BED IN LOW POSITION, CALL LITE IN REACH, PACING ROOM.
--- NOTE | 2023-04-10 03:06 | NUR ---
MARTHA SPENT THE FIRST FEW HOURS OF THE EVENING PACING AND REFUSING CARE OR NUTRITION. SHE WAS VERY ANXIOUS AND JUST MUMBLING TO HERSELF. AROUND 2100, SHE KEPT OUCH EACH TIME SHE TOOK A STEP. BOTH THE SITTER AND THIS RN SPENT CONSIDERABLE TIME TRYING TO CONVINCE HER TO LAY (OR EVEN SIT) DOWN AND ELEVATE HER SORE FEET, BUT SHE REFUSED. 5MG DOSE OF IM HALDOL GIVEN WITH THE ASSIST OF 4 OTHER STAFF MEMBERS, AND AFTER APPROXIMATELY 1.5 HOURS, MARTHA FINALLY LAID DOWN AND BEGAN TO FALL ASLEEP. WARM WATER AND WOUND CLEANSER WERE USED TO CLEAN BOTH FEET AND PHOTO'S WERE PLACED ON THE CHART OF THE LARGE WOUND ON HER LEFT FOOT. WILL REQUEST WOUND CARE CONSULT FROM THE HOSPITALIST IN THE MORNING. PATIENT HAS SLEPT MOST OF THE NIGHT, AND HAS BEEN QUITE COOPERATIVE WHEN SHE BRIEFLY AWAKENS.
--- NOTE | 2023-04-10 15:06 | NUR ---
PATIENT WAS RESTING COMFORTABLY DURING AM REPORT. SHORTLY AFTER SHE IS NOTED TO ROUSE. DOES NOT ANSWER QUESTIONS WITH ANYTHING EXCEPT NO AT THAT TIME. AM BREAKFAST PAITENT REFUSES. REFUSES LIQUIDS. AT 10 AM THIS RN SPOON FED PATIENT ICE CREAM AND SHE ATE ENTIRE SMALL CONTAINER. AT LUNCH THIS RN IS ABLE TO GET PATIENT TO EAT 35% OF HER MEAL. PATIENT SAYS NO TO TAKING A BITE BUT DOES OPEN HER MOUTH AND MAKE AN MMM SOUND. SHE CHEWS AND SWALLOWS EACH BITE I FEED HER. SHE ADAMENTLY REFUSES ANY TYPE OF LIQUID AND SCREAMS "NO" AND DOUBLES HER FIST. THOUGHT IS TO TRY AND FEET HER NECTAR THICK LIQUIDS. SHE HAS TWO LARGE BOWEL MOVEMENTS TODAY. RESISTS ALLOWING ANYONE TO CHANGE HER ATTENDS SO TAKES 3 PEOPLE EACH TIME TO CHANGE THEM. PATIENT IS VERY AGITATED LATER IN AFTERNOON AND 5MG IM HALDOL PROVIDED IN RIGHT DORSAL GLUTEAL. PATIENT IS CURRENTLY RESTING COMFORTABLY EYES CLOSED BREATHING EVEN AND UNLABORED. VERBAL ORDER FROM TO GIVE 1GRAM ROCEPHIN IM ONE TIME DOSE. ALSO WANTS CULTURE OF WOUND ON LEFT FOOT. REPORT THIS AFTERNOON TO RADHA FAIRCHILD.
--- NOTE | 2023-04-10 17:58 | NUR ---
WOUND CULTURE OBTAINED FROM LEFT PLANTAR FOOT AND SENT TO LAB.
--- NOTE | 2023-04-10 18:42 | NUR ---
DAY SHIFT SUMMARY: ALERT MOST OF SHIFT SINCE ASSUMPTION OF CARE AT 1500. WOUND CULTURE OBTAINED AND ROCEPHIN INJECTION ADMINISTERED. ATE ALMOST ENTIRE DINNER AFTER BEING FED BY 1:1 SITTER. FIRE PREVENTION INTERVENTIONS COMPLETED. HAS NOT TRIED TO BE OUT OF BED SINCE 1500. ANSWERS, "NO" TO MOST THINGS. BLOOD DRAW COMPLETED WITH ASSISTANCE OF SEVERAL PERSONS.
[2023-04-10 19:59] VITALS: BP 133/84
[2023-04-11 04:08] VITALS: BP 126/84
--- NOTE | 2023-04-11 06:34 | NUR ---
MARTHA AGAIN SLEPT ALL NIGHT. WAKING ONLY WHEN STAFF WOULD COME IN TO CHECK ON HER, OFFER DRINKS, ETC.. SHE DID REFUSE ORAL SEROQUEL AT . HOWEVER, SOMNOLENT SHE WAS, IT SEEMED PRUDENT TO NOT PUSH THE MATTER. SHE HAD NO COMPLAINTS OF PAIN OR DISCOMFORT, NOR DID SHE SHOW ANY INDICATIONS OF IT. LEFT FOOT WOUND MEPILEX REMAINED INTACT. WOUND CULTURE SENT YESTERDAY AFTERNOON. SITTER REMAINS IN PLACE OUTSIDE. ANIKET OGDEN CALLED . THIS RN DID NOT CALL HIM BACK.
[2023-04-11 07:25] VITALS: BP 109/75
--- NOTE | 2023-04-11 17:31 | NUR ---
SHIFT SUMMARY- PT IS ALERT, AND CONFUSED. SHE HAD A BED BATH THIS SHIFT. SHE WENT TO HER COURT HEARING THIS SHIFT AND WAS COMMITED. HER BED IS IN THE LOW POSITION AND CALL LIGHT IS WITHIN REACH. SPOKE WITH DIRECTOR CALL, SHE WILL SEE PT TOMORROW. SITTER IS OUTSIDE HER ROOM
[2023-04-11] MEDS ORDERED: QUETIAPINE FUMA25 MG PO (23:27)
[2023-04-11] MEDS ORDERED: OLANZAPINE1024 PO (23:28)
[2023-04-12 00:58] VITALS: BP 101/68
--- NOTE | 2023-04-12 03:40 | NUR ---
END OF SHIFT SUMMARY UNEVENTFUL NIGHT. PT A&O x1, ONLY ORIENTED TO SELF. AT THE BEGINNING OF SHIFT, PT ONLY RESPONDED WITH "NO" ANSWERS TO ASSESSMENT QUESTIONS. PT COMPLIANT WITH MEDICATION ADMINISTRATION. PT TOOK ALL MEDS CRUSHED IN APPLESAUCE. PT REQUESTED A SNACK AND FLUIDS EARLY THIS MORNING. CARE STAFF COMPLETING HOURLY ROUNDING FOR SAFETY CHECKS, ENSURING THAT PT'S NEEDS ARE BEING MET. PT IS MIXED INCONTINENCE OF BOWEL AND BLADDER. PT MUCH MORE SOCIAL, SMILEY AND LAUGHING AT 0100. PT DENIED PAIN/DISCOMFORT WHEN ASSESSED. CALL LIGHT WITHIN REACH, WCTM.
[2023-04-12 07:21] VITALS: BP 93/70
[2023-04-12 16:12] VITALS: BP 110/69
--- NOTE | 2023-04-12 18:21 | NUR ---
SHIFT SUMMARY 1 PERSON ASSIST UP TO BSC. HAS BEEN NONVERBAL TODAY EXCEPT SAYING NO TO MOST QUESTIONS. IS ABLE TO MAKE BASIC REQUESTS AND NEEDS KNOWN. DR. BENNETT IN TO SEE PT FOR SHORT TIME. WOUND CARE NURSE IN TO SEE PT AND CHANGE L FOOT DRESSING.
[2023-04-12 20:23] VITALS: BP 117/77
--- NOTE | 2023-04-13 05:26 | NUR ---
END OF SHIFT SUMMARY PT APPEARED TO BE SLEEPING FOR MOST OF THE NIGHT. PT CONTINUES TO HAVE A 1:1 SITTER OUTSIDE OF ROOM. PT DENIED PAIN/DISCOMFORT, PT COMPLIANT DURING MED ADMINISTRATION. PT DENIED SI/HI. DRESSING IN PLACE TO THE BOTTOM OF THE L FOOT. FREQUENT SAFETY CHECKS COMPLETED. TOILETING SCHEDULE OFFERED THROUGHOUT THE SHIFT. PT MORE TALKATIVE AFTER TAKING 2100 MEDICATIONS. PT TRANSFERS WITH 1P ASSIST, GAIT STEADY. PT SPEAKING IN FULL SENTENCES THIS MORNING. PT A&O x1 ONLY TO HERSELF. PT COMMITTED FOR 180 DAYS. PT ABLE TO MAKE NEEDS KNOWN. VSS, WCTM.
[2023-04-13 05:33] VITALS: BP 112/82
[2023-04-13 07:51] VITALS: BP 118/81
[2023-04-13 14:24] VITALS: BP 105/72
--- NOTE | 2023-04-13 18:11 | NUR ---
SHIFT SUMMARY PT INDEPENDENTLY WALKING IN ROOM. REFUSING TO PUT SOCKS ON TO WALK AROUND. CAME IN TO HALLWAY AND REQUIRED REDIRECTING BACK TO ROOM SEVERAL TIMES. FEEDING HERSELF TODAY. STATED SHE NEEDED TO USE RESTROOM TODAY BUT REFUSED TO GO IN TO BATHROOM BUT USED BSC. SHOWER OFFERED BUT PT ADAMENT ABOUT NOT GOING IN BATHROOM.
[2023-04-13 20:02] VITALS: BP 105/68
--- NOTE | 2023-04-14 04:19 | NUR ---
SHIFT SUMMARY PATIENT ASLEEP MOST OF NIGHT, UP TO VOID X1 THIS SHIFT. SWALLOWS ALL MEDS WHOLE WITH QUEING. 1:[address] BED ALARM IS ON, VSS. CALL LIGHT IN REACH.
[2023-04-14 07:31] VITALS: BP 104/74
[2023-04-14 15:46] VITALS: BP 110/76
--- NOTE | 2023-04-14 18:12 | NUR ---
SHIFT SUMMARY PT CLEANED UP THIS AFTERNOON WITH MUCH ENCOURAGEMENT AND PAPER CLOTHES CHANGED. SOCKS PLACED ON FEET AND WALKED IN HALLWAY INDEPENDENTLY. EATING INDEPENDENTLY. SITTER IN VIEW OF PT. STILL SAYS NO FREQUENTLY BUT ALSO SMILING WITH SOME INTERACTIONS.
[2023-04-14 19:54] VITALS: BP 105/70
[2023-04-15 04:50] VITALS: BP 102/71
--- NOTE | 2023-04-15 05:15 | NUR ---
SUMMARY- NO ACUTE EVENTS THIS SHIFT. PT AAOX1 TO SELF. PT INTERACTED VERY LITTLE WITH RN. PT WOULD ONLY TAKE HER MEDS CRUSHED IN APPLESAUCE. INDEPENDENT IN ROOM. RN ENSURED FIRE SAFETY EVERY HOUR WITH ROUNDS.
[2023-04-15 07:47] VITALS: BP 100/65
[2023-04-15 15:30] VITALS: BP 107/74
--- NOTE | 2023-04-15 18:28 | NUR ---
SHIFT SUMMARY PATIENT PARANOID AND RESISTANT TO CARE AT TIMES THROUGHOUT THE DAY. PATIENT INCONTINENT AT TIMES AND RESISTIVE TO BE CLEANED. WOUND CARE PROVIDED TO L FOOT. PATIENT VERY RESTLESS DURING WOUND CARE. PATIENT AMBULATED PERIODICALLY IN THE HALLS AND WOULD RETURN TO HER ROOM WHEN ASKED. PATIENT WILLING TO TAKE MEDICATIONS LONG THEY ARE CRUSHED IN APPLESAUCE.
--- NOTE | 2023-04-16 05:03 | NUR ---
53 YR F ADMITTED ON 04/03/23 FOR DECOMPENSATED SCHIZOPHRENIA DISORIENTATION. FULL CODE. NO ACUTE CHANGES THIS SHIFT. PT HAS SLEPT FOR ENTIRE SHIFT. WHEN SHE WAS WOKED FOR MEDS SHE INITIALLY REFUSED BUT EVENTUALLY AGREED TO TAKE HER KEFLEX MIXED W/ APPLESAUCE.
[2023-04-16 07:34] VITALS: BP 106/67
[2023-04-16 16:32] VITALS: BP 118/64
--- NOTE | 2023-04-16 18:18 | NUR ---
SHIFT SUMMARY PATIENT RESISTANT WITH CARE AT START OF SHIFT. INCONTINENT AND RESISTANT ABOUT GETTING CLEANED UP. PATIENT NOT EATING AT START OF SHIFT. DISCOVERED THAT PATIENT LIKES CHOCOLATE PUDDING, ENSURE AND ICE CREAM. PATIENT MORE COOPERATIVE AND WALKING MORE DURING SECOND PART OF SHIFT.
[2023-04-16 19:52] VITALS: BP 99/74
--- NOTE | 2023-04-17 03:41 | NUR ---
SHIFT SUMMARY NO ACUTE CHANGES THIS SHIFT. PT IS REFUSING CARE AND REFUSED HER 2100 MEDS. SHE WAS OFFERED PUDDING OR ICE CREAM TO TAKE THEM WITH BUT SHE ADAMANTLY REFUSED. SHE WAS OFFERED TO BATHE AND REFUSED THAT WELL. SHE TOOK A SHORT WALK IN THE HALLWAY THIS SHIFT THEN WENT TO BED ON HER OWN AND HAS SLEPT ALL NIGHT.
[2023-04-17 04:29] VITALS: BP 108/71
[2023-04-17 07:59] VITALS: BP 104/63
[2023-04-17 15:16] VITALS: BP 109/67
--- NOTE | 2023-04-17 17:24 | NUR ---
SHIFT SUMMARY PATIENT CONTINUES TO BE LIMITED ON COMMUNICATING. OFTEN SAYING "NO" BUT WILL DO WHAT IS BEING ASKED OR EAT THE FOOD SHE IS SAYING NO TO. PATIENT EATING CHOCOLATE PUDDING, SU CRACKERS, CHOCOLATE ENSURE AND BITES OF MEALS. PATIENT TOOK AM MEDICATIONS CRUSHED IN APPLESAUCE AND ALLOWED NURSE TO GIVE SQ INJECTION OF LOVENOX. PATIENT MEDICATED WITH PRN SEROQUEL SINCE PATIENT REFUSED NIGHT TIME MEDS AGAIN LAST NIGHT. PATIENT AMBULATING IN THE KUMAR PERIODICALLY AND RETURNING TO HER ROOM ON HER OWN. PATIENT INCONTINENT X1 AND USING THE COMMODE SINCE.
[2023-04-18 05:53] VITALS: BP 109/71
--- NOTE | 2023-04-18 05:54 | NUR ---
SHIFT SUMMARY A/O 2-3, FLAT/WITHDRAWN AFFECT. IND IN ROOM. 1:1 SITTER PRESENT, SLEPT T/O SHIFT. VSS, NO ACUTE CHANGES AT THIS TIME. BED IN LOWEST POSITION WITH CALL LIGHT IN REACH. WILL CONTINUE TO MONITOR AND REPORT TO ONCOMING RN.
[2023-04-18 07:47] VITALS: BP 100/70
[2023-04-18 16:51] VITALS: BP 104/70
--- NOTE | 2023-04-18 18:18 | NUR ---
SHIFT NOTE PT ALERT. OCCASIONALLY SHE WALKS INTHE HALLWAY. NO ATTEMPT TO LEAVE. 1:1 SITTER. SHE HAS REFUSED TO DRINK AVAILABLE FLUIDS. SHE DID DRINK 1 CARTON OF MILK. VOIDED ONCE FOR 130 ML. POOR APPETITE. DENIED PAIN OR DISCOMFORT. REFUSED TO BATHE. REFUSED TO HAVE FOOT WOUND CARED FOR. CONTINUE POC.
[2023-04-18 19:55] VITALS: BP 110/75
--- NOTE | 2023-04-19 04:31 | NUR ---
SHIFT SUMMARY ADMITTED FOR SCHIZOPHRENIA. FULL CODE. PLAN IS FOR INPT PSYCH PLACEMENT. 6 MONTH COMMITMENT. [facility]SHIP. PO ANTIB RX ARE SCHEDULED. SHE DOES FREQUENTLY REFUSE CARE. SHE SPIT HER MEDS BACK OUT THIS SHIFT. SHE IS ON RA. SHE DID REST THROUGHOUT SHIFT.
--- NOTE | 2023-04-19 11:40 | NUR ---
SUMMARY OF PARTIAL SHIFT. PATIENT NON VERBAL WITH SALES REPRESENTATIVE PUBLICATIONS, SHAKES HEAD TO REFUSE MEDICATIONS, REFUSED VITAL SIGN ASSESSMENT WELL THIS AM. PATIENT HAS NOT URINATED THIS SHIFT PER CLARA LEUNG OF 11:41AM
--- NOTE | 2023-04-19 12:17 | NUR ---
REPORT GIVEN TO DEVORAH TOUSSAINT FOR REST OF SHIFT
--- NOTE | 2023-04-19 15:27 | NUR ---
THIS RN ASSUMED CARE AT 1200. PATIENT REFUSING ANY CARES. REFUSING TO EAT OR USE BATHROOM. SITTER REMAINS AT BEDSIDE. PATIENT ANSWERING YES AND NO ALTHOUGH ANSWERS DO NOT SEEMS MEANINGFULLY. UP WALKING AROUND IND. THIS RN ASKED PATIENT ABOUT USING BATHROOM. SHE REPLIES "NO" THEN "YES". UPON ASKING AGAIN, PATIENT STATES SHE WENT IN "DIAPER". THIS RN PROVIDED NEW ATTENDS. PATIENT REFUSES TO CHANGE AND PUT ON NEW ATTENDS. THIS RN NOT ABLE TO TELL IF PATIENT HAS URINATED OR NOT. CALL LIGHT IN REACH.
--- NOTE | 2023-04-19 18:17 | NUR ---
SHIFT SUMMARY: PATIENT CONTINUES TO REFUSE CARES. SITTER AT BEDSIDE. PATIENT SAYING "NO" TO EVERYTHING, GETTING AGGITATED WITH MULTIPLE QUESTIONS AND WAVES ARM SHE SAYS NO. PATIENT VOIDING, LINNENS SOILED. PATIENT ALLOWED THIS RN TO CHANGE SOILED LINNENS. REFUSING TO CHANGE CLOTHES AND ATTENDS. DINNER SET UP IN ROOM, PATIENT NOT EATING. CALL LIGHT IN REACH. PATIENT WALKING AROUND ROOM, DOES NOT APPEAR TO BE IN ANY DISTRESS.
--- NOTE | 2023-04-20 05:45 | NUR ---
SHIFT SUMMARY - PT HAS BEEN NON-COMPLIANT WITH CARE, AND PT HAS STATED "NO" TO EVERYTHING ASKED THROUGHOUT THE NIGHT, EXCEPT "YES" TO TAKING OUT HER TRAY AT THE BEGINNING OF THE SHIFT. PT HAS BEEN SLEEPING FOR APPX 4 HOURS IN BED, RESPIRATIONS EVEN AND UNLABORED. SITTER OUTSIDE OF ROOM. PT DIDN'T EAT ANY OF HER DINNER. PO FLUIDS AT BEDSIDE - GATORADE UNOPENED, WATER AT BEDSIDE. CALL LIGHT WITHIN REACH. BED IN LOW POSITION. WILL CONTINUE TO MONITOR UNTIL AM SHIFT CHANGE.
[2023-04-20 16:02] VITALS: BP 116/78
--- NOTE | 2023-04-20 16:06 | NUR ---
WOUND CARE L FOOT DRESSING CHANGED PER ORDER. WOUND IS MUCH IMPROVED NEXT CHANGE FRI. PT TOLERATED WELL
--- NOTE | 2023-04-20 18:29 | NUR ---
SHIFT SUMMARY: MARTHA DOES NOT ANSWER QUESTIONS APPROPRIATELY, SIMPLY RESPONDS "NO" IN VARIOUS TONES OF VOICE AND VOLUMES. SHE HAS REFUSED ALL MEDICATIONS THIS SHIFT. ENDOSCOPY REGISTERED NURSE REPORTED PT REFUSED FOOD, BUT DID EAT PUDDING THAT WAS LEFT AT BEDSIDE WHEN STAFF WAS NOT IN THE ROOM. PT STANDS AT THE BEDSIDE AND ROCKS BACK AND FORTH ON HER FEET. SHE HAS NOT USED THE CALL LIGHT THIS SHIFT. PAPER SCRUBS AND ATTENDS IN PLACE, 1:1 SITTER. WCTM UNTIL REPORT IS GIVEN TO COTTON WEIGHER OPERATOR RN.
[2023-04-20 21:14] VITALS: BP 121/77
--- NOTE | 2023-04-21 04:29 | NUR ---
SHIFT SUMMARY PATIENT ALERT, MOSTLY TO SELF, POOR INSIGHT. APPEARES INTERNALLY PREOCCUPIED. FLAT AFFECT, MINIMALLY INTERACTIVE, STATES NO TO ALL QUESTIONS. DECLINED HS MEDICATIONS, REFUSED TO ELABORATE TO WHY REFUSING. OBSERVED IN ROOM SELF SOOTHING, ROCKING SELF BACK AND FORTH. APPEARES IN NO ACUTE DISTRESS. BED LOW, CALL LIGHT WITHIN REACH.
[2023-04-21 15:29] VITALS: BP 104/94
--- NOTE | 2023-04-21 17:10 | NUR ---
No changes noted this shift. Pt alert to self, answers no to all questions. Will take med when given in a med cup. Pt declines to sit down. Up in room or bathroom swaying back and forth. Dressing to foot CDI. Declines to eat meals provided. Declines hygiene care. Pain and safety managed. Will continue to monitor.
--- NOTE | 2023-04-22 06:36 | NUR ---
NO CHANGES OVERNIGHT FOR MARTHA. SHE ANSWERED NO TO EACH QUESTION. AND REFUSED ALL CARE. FINALLY, AT AROUND 0330, MARTHA LAID DOWN IN BED AND SLEPT FITFULLY FOR 3-4 HOURS. LEFT FOREFOOT BANDAGES STILL INTACT THIS MORNING. NO INDICATIONS OF PAIN OR DISCOMFORT
[2023-04-22 14:46] VITALS: BP 105/80
--- NOTE | 2023-04-22 14:52 | NUR ---
SHIFT SUMMARY: Pt alert to self this am, took off all clothing, soaked brief and foot dressing. Was able to ast with getting redressed. Brief wound care to foot as pt not allowing care. Pt will hush chief writer stating she is listening to her maker/creator and talking back to him. Declines to eat/drink meals provided. PO Seroquel given this am. Increased yelling, pacing. IM med given at 1130. 1315 pt resting in bed with eyes closed. Declines blood draw, stating she needs blood given in order to eat. 1430 pt calm discussion with staff and is eating her lunch and ensure stating she wants to eat healthy. Pain and safety maintained. Will continue to follow.
[2023-04-22 19:56] VITALS: BP 116/85
--- NOTE | 2023-04-23 04:48 | NUR ---
MARTHA HAS HAD AN AMAZING NIGHT. SHE IS ALERT AND ORIENTED TO PLACE, SELF AND SOME STAFF. SHE IS PARTICIPATING IN HER OWN CARE. TALKING TO STAFF, ANSWERING QUESTIONS AND FOLLOWING COMMANDS APPROPRIATELY. SHE EVEN TOOK A SHOWER AND ASKED FOR A LEFT FOOT DRESSING CHANGE BEFORE BED. NO COMPLAINTS OR INDICATIONS OF PAIN OPR DISCOMFORT. SHE SLEPT ALL NIGHT AFTER AROUND 2200. WILL CONTINUE CLOSE MONITORING.
[2023-04-23 07:32] VITALS: BP 96/70
--- NOTE | 2023-04-23 09:20 | NUR ---
RN ATTEMPTED TO ADMINISTER MEDICATION AND PERFORM A PHYSICAL ASSESSMENT. PT STATED "THATS NOT NECESSARY", SHE WON'T CONSENT TO RN LISTENING TO HER LUNGS. PT STATES THAT SHE IS NOT IN ANY PAIN. LYING IN BED, QUIET. NOT EATING BREAKAST THIS MORNING. RN WILL REAPPROACH LATER.
[2023-04-23 14:29] VITALS: BP 95/68
--- NOTE | 2023-04-23 18:43 | NUR ---
PT LARGELY REFUSED CARE THIS SHIFT. FROM 714, AFTER HER SHOWER, UNTIL 1814, PT REMAINED IN BED. SHE REFUSED TO EAT HER MEALS, OR TO TAKE MEDS, AND DID NOT ALLOW RN TO ASSESS/ASCULTATE ANYTHING. MULTIPLE ATTEMPTS. PT EVENTUALLY DID CONSENT TO DRINKING TWO ENSURES, AND EATING SOME COOKIES AFTER STAFF EXPLAINED THAT IF PT BECAME DEHYDRATED, AN IV MAY NEED TO BE PLACED TO GIVE FLUIDS. PT REMAINED MOSTLY CALM AND REDIRECTABLE THROUGH OUT THE SHIFT. MOSTLY WITHDRAWN, LAYING QUIETLY ON HER BED.
--- NOTE | 2023-04-24 04:45 | NUR ---
MARTHA SLEPT THROUGH MOST OF THE NIGHT AFTER IT GOT DARK. SHE REFUSED PHYSICAL ASSESSMENT OTHER THAN ALLOWING THIS RN TO AUSCULTATE THE ANTERIOR OF HER CHEST. HEART SOUNDS WERE REGULAR, AND LUNGS WERE CLEAR AND VERY MINIMALLY DIMINISHED IN THE BASES. AGAIN, ANTERIOR CHEST WAS THE ONLY AREA SHE WOULD ALLOW US TO ASSESS. HS MEDS WERE ALSO REFUSED. ASKING IF I COULD MOVE HER COMMODE SO HER TABLE COULD BE MORE ACCESSIBLE TO HER, SHE SAID SHE DIDN'T USE "EITHER ONE OF THEM" MEANING THE BATHROOM OR THE COMMODE. THEN SHE REFUSED CHANGE HER PULL UPS OR LET US HELP HER WITH IT. WILL CONTINUE CLOSE MONITORING UNTIL ONCOMING STAFF TAKE OVER CARE
[2023-04-24 07:45] VITALS: BP 107/74
--- NOTE | 2023-04-24 18:14 | NUR ---
SHIFT SUMMARY PT HAS BEEN LYING IN BED ALL SHIFT. SHE HAS BEEN SLEEPING MOST OF THE DAY. PT WILL WAKE UP BRIEFLY FROM VERBAL STIMULI, BUT SHE TENDS TO RESPOND WITH SHORT ONE-TWO WORD ANSWERS AND/OR MUMBLING. PT DECLINED TO TAKE HER MEDS TODAY. SHE DECLINED TO GET UP TO USE THE BATHROOM. SHE DID NOT EAT ANY OF HER MEALS. HER FOOT ULCER WAS ASSESSED WITHOUT DIFFICULTY. BANDAGE STILL C/D/I. PT DENIED PAIN. PT DECLINED FURTHER NURSING ASSESSMENT. PT DECLINED GETTING VITALS TAKEN WELL. PT WAS EDUCATED ON FIRE SAFETY AND RISK WITH A HEAD NOD IN UNDERSTANDING. PT IS CURRENTLY RESTING IN BED. CALL LIGHT IN REACH.
[2023-04-24 20:28] VITALS: BP 129/83
--- NOTE | 2023-04-25 04:15 | NUR ---
PATIENT SLEPT MOST OF THE SHIFT. REFUSED MEDICATIONS AND ASSESSMENT. SPOKE VERY LITTLE TO STAFF. PER REPORT PATIENT DID NOT EAT ALL DAY YESTERDAY. PATIENT ASKED FOR 2 ENSURES THIS SHIFT AND DID DRINK BOTH. DRESSING TO L FOOT REMAINS C/D/I, WOUND CARE FOLLOWING. DENIES ANY PAIN OR DISCOMFORT. 1:1 SITTER AT BEDSIDE. INDEPENDENT IN ROOM.
[2023-04-25 04:17] VITALS: BP 107/76
[2023-04-25 08:02] VITALS: BP 105/70
[2023-04-25 15:55] VITALS: BP 105/86
--- NOTE | 2023-04-25 16:26 | NUR ---
SHIFT SUMMARY PT HAD UNEVENTFUL DAY. PT DECLINED ALL NURSING ASSESSMENTS WITH THE EXCEPTION OF HER FOOT WOUND CARE AND DRESSING CHANGE. PT DECLINED TO MEET WITH PSYCH PROVIDER. SHE ALSO DECLINED TO TAKE ANY MEDS OR HAVE HER VITALS TAKEN. PT WAS UP WALKING AROUND ROOM AND DOWN HALLS MULTIPLE TIMES TODAY. HER BEHAVIOR WAS CALM AND CONTENT. 1:1 SITTER STILL IN ROOM. SHE ALSO ATE, DRANK, AND USED THE TOILET TODAY. PT IS CURRENTLY STANDING IN HER ROOM. DENIES PAIN. DENIES ANY NEEDS AT THIS TIME.
[2023-04-25 19:44] VITALS: BP 112/82
--- NOTE | 2023-04-26 05:37 | NUR ---
SHIFT SUMMARY PATIENT ALERT, DECLINES TO ANSWER ORIENTATION QUESTIONS. ALLOWS PARTIAL ASSESSMENT. DECLINES MEDICATIONS. PATIENT CALM AND RESTING IN BED. STATES NO NEEDS, ENCOURAGED TO USE RESTROOM. 1:1 SITTER PRESENT.
[2023-04-26 07:54] VITALS: BP 111/74
--- NOTE | 2023-04-26 16:01 | NUR ---
DAYSHIFT SUMMARY Patient alert, oriented to self. Declined morning medications, & meals. But patient did drink an ensure supplement, milk, and a gatorade today. 1 episode of emesis this am, patient allowed staff to help her clean up, but declined PRN antiemetic. Mepilex on left foot, CDI. No changes in patient condition. Will continue plan of care.
[2023-04-26 16:55] VITALS: BP 108/76
[2023-04-26 21:31] VITALS: BP 110/78
--- NOTE | 2023-04-26 21:59 | NUR ---
PT REFUSED NIGHT TIME MEDICATIONS (SEROQUEL AND ANTIBIOTIC). ATTEMPTED TO EDUCATE PT REGARDING IMPORTANCE OF MEDICATION REGIME. PT STATED, "I DON'T WANT TO TAKE THAT PUDDING." PT DENIED ANY PAIN OR DISCOMFORT DURING NURSING HEAD TO TOE ASSESSMENT. WCTM.
[2023-04-27 04:34] VITALS: BP 99/68
[2023-04-27 07:35] VITALS: BP 107/74
--- NOTE | 2023-04-27 13:00 | NUR ---
IM ADMIN PATIENT DISPLAYING ANXIOUS BEHAVIORS, PACING, GRIMACING, UP AND DOWN OUT OF BED SEVERAL TIMES IN A ROW. REFUSED ORAL MEDICATIONS. ADMINISTERED IM INJECTION. NO COMPLICATIONS.
--- NOTE | 2023-04-27 18:57 | NUR ---
SHIFT SUMMARY DOC MADE AWARE OF PATIENT REFUSALS THIS SHIFT, CM STATED TO CONTINUE TO LOOK FOR PLACEMENT. REFUSED WOUND CARE THIS SHIFT WELL. WILL CONTINUE TO MONITOR
[2023-04-27 19:53] VITALS: BP 108/76
[2023-04-28 03:17] VITALS: BP 99/65
--- NOTE | 2023-04-28 05:13 | NUR ---
SHIFT SUMMARY PT IS A&OX1, REFUSED ASSESSMENT WELL 2100 MEDS, RA, VSS, PT SLEPT MOST OF THE NIGHT, CONTINUE POC
--- NOTE | 2023-04-28 19:19 | NUR ---
SHIFT SUMMARY: NO ACUTE CHANGES THIS SHIFT. PT REFUSED NEARLY ALL CARE. PT SLEPT ON AND OFF THROUGHOUT SHIFT AND WOULD WANDER AROUND ROOM WHEN AWAKE. SEVERAL ATTEMPTS OFFERED TO PT TO EAT. SR. MEDIA MANAGER AND RN ORDERED FOODS PREVIOUSLY REQUESTED ON OTHER SHIFTS. PT STILL WOULD NOT EAT OR DRINK. PT ALLOWED STAFF TO CHANGE BRIEF THIS SHIFT. PT REFUSED MEDICATIONS THIS SHIFT. SITTER WITH PT. CALL LIGHT IN REACH. REPORT GIVEN TO ONCOMING RN.
[2023-04-28 20:36] VITALS: BP 103/72
[2023-04-29 03:05] VITALS: BP 106/74
--- NOTE | 2023-04-29 04:36 | NUR ---
PT IS A&O TO SELF, RESPONDS NO WHEN ASKED QUESTIONS, PT REFUSED MEDS THIS SHIFT WELL WOUND CARE, PT DID EAT PUDDING, CRACKERS AND AN ENSURE WITH ONE EPISODE OF VOMITING THIS AM, RA, VSS, CONTINUE POC
--- NOTE | 2023-04-29 17:49 | NUR ---
SHIFT SUMMARY: PT A&O X1. NO ACUTE CHANGES THIS SHIFT. PT SLEPT THE MAJORITY OF THE SHIFT WITH THE OCCASIONAL WALK IN ROOM. PT REFUSED VITALS, MEDICATIONS, AND MOST ASSESSMENTS. CALL LIGHT IN REACH. BED IN LOWEST POSITION. WILL CONTINUE TO MONITOR.
--- NOTE | 2023-04-29 19:30 | NUR ---
ASSUMED CARE OF PT- PT REFUSING TO CARE FOR HERSELF, AND REFUSING STAFF CARE, ATTENDS SATURATED AND BED WELL. PT REQUIRED LOTS OF ENCOURAGEMENT AND ASISTANCE FROM STAFF, [employer] CHANGED BY STAFF, PT GOT OOB AND CHANGED HER WET CLOTHING PERFORMING HER OWN CAROLE CARE SHE DECLINED TO PERFORM A BED BATH AT THIS TIME. PROVIDED WITH NEW ATTENDS AND PAPER SCRUBS WHICH SHE PLACED ON HERSELF. PT RETURNED TO BED, SHE IS C/O RIGHT EAR PAIN, BUT REFUSES TO ALOW STAFF TO LOOK AT IT, SHE ALSO IS REFUSING ALL MEDICATIONS AT THIS TIME, DESPITE STAFF ENCOURAGEMENT TO TAKE THEM.
--- NOTE | 2023-04-30 05:11 | NUR ---
SHIFT SUMMARY- PT REFUSED FULL ASSESSMENT, SHE REFUSED MEDICATIONS, ALTHOUGH SHE DID HAVE A MOMENT OF CONTEMPLATION ABOUT ACTUALLY TAKING THEM, PT REFUSED TO GET UP TO CHANGE HERSELF, AFTER STAFF ENCOURAGEMENT SHE DID, STAFF CHANGED HER BEDDING. PT FELL ASLEEP AROUND 2330 AND HAS SLEPT SOUNDLY T/O THE NIGHT, 1:1 SITTER PRESENT AND MONITORING ACTIVITY. PT IN BED SLEEPING NO S&S OF DISTRESS NOTED.
--- NOTE | 2023-04-30 06:40 | NUR ---
ROUNDED ON PT- WOKE THE PT FOR FIANL ROUNDS OF THE NIGHT SHE HAS NOT VOIDED ALL SHIFT TO ENSURE ATTENDS WERE DRY, PT AGITATED WITH STAFF SAYING NO IM NOT WET, BUT WILLINGLY SHOWED STAFF HER DRY ATTENDS. PT IN BED, 1:1 SITTER PRESENT, PT SEEMS TO BE DRIFTING OFF BACK TO SLEEP.
[2023-04-30 08:47] VITALS: BP 106/82
[2023-04-30 15:43] VITALS: BP 100/74
--- NOTE | 2023-04-30 18:08 | NUR ---
SHIFT SUMMARY: NO ACUTE EVENTS. VERY LITTLE PO INTAKE TODAY. URINE IS CONCENTRATED, INCONTINENT MOST OF THE TIME. REFUSED MEDICATIONS. DID NOT HAVE IODOFLEX FOR WOUND CARE (CAN PROBABLY GET IT TUESDAY WHEN BRANCH ADMINISTRATOR IS HERE), SO DRESSING ON L FOOT NOT CHANGED TODAY. STILL HAS 1:1 SITTER. NO BEHAVIORS REQUIRING PRN MEDS, NO RESTRAINTS IN USE THIS SHIFT.
[2023-04-30 20:27] VITALS: BP 101/68
--- NOTE | 2023-05-01 05:15 | NUR ---
SHIFT SUMMARY- PT HAS HAD NO ACUTE CHANGES T/O THE SHIFT. SHE REFUSED TO TAKE MEDICATIONS, REFUSED PART OF HER ASSESSMENT. PT HAS BEEN SLEEPING SOUNDLY T/O THE NIGHT NO CURRENTL S&S OF DISTRESS.
[2023-05-01 06:27] VITALS: BP 104/74
[2023-05-01 14:29] VITALS: BP 105/77
--- NOTE | 2023-05-01 18:32 | NUR ---
SHIFT SUMMARY: NO ACUTE EVENTS. REFUSING MEDS, BATHROOM USE, PO INTAKE. AMBULATED IN ROOM X 2, VERY ANXIOUS. INCONTINENT OF BLADDER, WEARING PULL UP STYLE BRIEF. URINE IS CONCENTRATED AND DARK IN COLOR. 1:[address] NO RESTRAINTS USED THIS SHIFT.
[2023-05-01 19:58] VITALS: BP 102/75
--- NOTE | 2023-05-02 04:16 | NUR ---
SHIFT SUMMARY- PT ALERT AND ORIENTED TO SELF. SHE HAS HAD NO ACUTE EVENTS OVER NIGHT, SHE HAS SLEPT SOUNDLY T/O THE NIGHT, ATTENDS WERE CHANGED PRIOR TO SHIFT START AND SHE HAS BEEN DRY ON ALL CARE ROUNDS. PT IS DEFENSIVE AND HER ANSWER TO ALL QUESTIONS IS "NO!" THE PT REFUSES CARE OFTEN POSSIBLE, STAFF ENCOURAGE HER TO PARTICIPATE AND ASSIST IN HER OWN ADL'S. PT WILL (WITH ENCOURAGEMENT) USE THE COMMODE, CHANGE HER OWN ATTENDS AND PERFORM HER OWN CAROLE CARE.
[2023-05-02 05:18] VITALS: BP 105/79
[2023-05-02 15:34] VITALS: BP 118/87
--- NOTE | 2023-05-02 17:07 | NUR ---
SHIFT SUMMARY- PT BECAME AGITATED THIS SHIFT. SHE WAS AMBULATING IN THE KUMAR AND REQUESTING TO GO OUTSIDE. SHE WAS WAS NOT WANTING TO GO BACK TO HER ROOM. SECURITY WAS CALLED AND PT WAS ESCORTED BACK TO HER ROOM. IM ZYPREXA WAS ADMINISTERED. PT HAS BEEN RESING SINCE. HER APPETITE IS POOR. SHE HAS BEEN REFUSING CARE.
[2023-05-02 19:21] VITALS: BP 104/63
--- NOTE | 2023-05-03 04:02 | NUR ---
SHIFT SUMMARY. SHIFT HAS BEEN UNREMARKABLE. PT CONTINUES TO REFUSE ALMOST ALL NURSING CARE. ADMINISTERED SCHEDULED 2100 ZYPREXA AFTER WHICH TIME PT HAS SLEPT THROUGH MOST OF SHIFT. ABLE TO ASSIST PT TO BEDSIDE COMMODE EARLY IN SHIFT DESPITE RESISTANCE BUT PT WAS ABLE TO CHANGE BRIEF AND PANTS ON HER OWN WITH MINIMAL ASSISTANCE. REFUSED NURSING ASSESSMENT AND ANY OTHER MEDICATIONS. HAS NOT HAD ANY PO INTAKE OUTSIDE OF SOME OREOS EARLY THIS MORNING. 1:[address] FOR SAFETY. NO COMPLAINTS OF PAIN THIS SHIFT. DIFFICULT TO ASSESS ORIENTATION PT DOES NOT ANSWER QUESTIONS APPROPRIATELY BUT APPEARS CONFUSED. HAS NOT USED CALL LIGHT THUS FAR. BED LOCKED IN LOWEST POSITION. CALL LIGHT LEFT WITHIN REACH.
[2023-05-03 04:56] VITALS: BP 102/70
[2023-05-03 07:38] VITALS: BP 105/72
[2023-05-03 16:40] VITALS: BP 92/65
--- NOTE | 2023-05-03 17:50 | NUR ---
SHIFT SUMMARY; PATIENT BECAME AGGRESSIVE WITH STAFF AND TRIED TO LEAVE UNIT TODAY. SHE IS MEDICATED WITH 1MG IM OF HALDOL IN DORSAL GLUTE. PATIENT APPEARS TO BE HOLDING HER ABDOMEN THROUGHOUT THE DAY AND PER PREVIOUS NURSING NOTES IS VERY LIKELY CONSTIPATED. DOCUSATE SODIUM PROVIDED LIQUID FORM. PATIENT IS NOTED TO VOMIT X 2 TODAY. SHE ATE HALF OF HER AM MEAL WITH ENCOURAGEMENT. SHE DID NOT WANT AFTERNOON MEAL ONLY COAXED TO DRINK PROTEIN SHAKE WHICH SHE VOMITTED UP. SHE STILL REFUSES CARE AND BECOMES AGITATED WHEN IS ASKED IF SHE IS IN PAIN OR IS HUNGRY. JOSE ENRIQUE BROWN IS ABLE TO GET PATIENT TO SIT ON COMMODE X 2 TODAY. ONLY URINE NOTED IN COMMODE.
[2023-05-03 20:35] VITALS: BP 91/64
[2023-05-04 02:21] VITALS: BP 103/71
--- NOTE | 2023-05-04 04:29 | NUR ---
SHIFT SUMMARY. SHIFT HAS BEEN LARGELY UNREMARKABLE. PT HAS BEEN CALM THROUGHOUT SHIFT AND EVEN ALLOWED ME TO PERFORM MOST OF MY NURSING ASSESSMENT EARLY IN SHIFT. TOOK PO 2100 ZYPREXA WITHOUT DIFFICULTY. HAS SLEPT THROUGH MOST OF SHIFT SINCE. VERY LITTLE PO INTAKE. NO BM THIS SHIFT. 1:[address] FOR SAFETY. BED LOCKED IN LOWEST POSITION. CALL LIGHT LEFT WTIHIN REACH.
[2023-05-04 07:48] VITALS: BP 104/78
[2023-05-04 15:36] VITALS: BP 95/67
--- NOTE | 2023-05-04 17:19 | NUR ---
SHIFT SUMMARY PATIENT REMAINED IN HER ROOM THIS SHIFT. PATIENT NEEDING REMINDING TO USE COMMODE. PATIENT INCONTINENT X 1. PATIENT DID HAVE A BM TODAY. PATIENT RELUCTANT BUT COOPERATIVE WITH MEDS AND WOUND CARE TO FOOT. PATIENT LESS INTERESTED IN EATING TODAY BUT WILLING TO DRINK ENSURES.
[2023-05-04 20:14] VITALS: BP 114/75
[2023-05-05 07:59] VITALS: BP 114/81
[2023-05-05 17:15] VITALS: BP 104/70
--- NOTE | 2023-05-05 18:41 | NUR ---
SHIFT SUMMARY PATIENT CONTINUES TO SAY NO TO EVERYQUESTION. PATIENT SAYING NO TO GETTING UP TO USE THE COMMODE BUT INDEPENDENTLY GOT UP AND USED COMMODE AND PROVIDED OWN PERSONAL CARE. PATIENT CONTINENT THROUGHOUT THE DAY. PATIENT CONTINUES TO ONLY PICK AT MEALS BUT WILLING TO DRINK HER ENSURES EVEN THOUGH SHE WAS SAYING NO. PATIENT DID EAT SOME BITES OF HER SANDWICH TODAY. PATIENT TOOK 2 SHORT WALKS TODAY IN THE KUMAR WITH STAND BY ASSIST. MIRALAX GIVEN EARLIER TODAY TO HELP WITH CONSTIPATION. PATIENT HAD MEDIUM BM WITH FORMED FIRM ROUND STOOL AND LIQUID. PATIENT STATING SHE DOES NOT WANT TO EAT BECAUSE HER STOMACH WAS HURTING AT LUNCH.
[2023-05-05 20:46] VITALS: BP 88/62
[2023-05-06 05:46] VITALS: BP 98/80
--- NOTE | 2023-05-06 07:30 | NUR ---
MARTHA SLEPT ALL NIGHT WAKING ONLY TO REFUSE BATHROOM TRIPS AND VITAL SIGNS. SHE ACTUALLY VOIDED 900ML THIS MORNING AT 0715 IN THE COMMODE. NO EPISODES OF INCONTINENCE OVERNIGHT.
[2023-05-06 07:36] VITALS: BP 104/72
[2023-05-06 15:40] VITALS: BP 86/63
--- NOTE | 2023-05-06 17:35 | NUR ---
SHIFT SUMMARY PATIENT CONTINUES TO LAY IN BED MOST OF THE DAY. PATIENT CAME OUT OF ROOM INDEPENDENTLY X1 AND ASKED IF SHE COULD GO HOME. PATIENT WENT BACK IN HER ROOM WHEN TOLD THAT SHE COULDN'T LEAVE YET. PATIENT HAD QUICK EXAM BY DENTAL HYGENTIST AND FOUND TO HAVE MANY MACARONI MAKER ISSUES WITH HER TEETH THAT COULD BE RELATED TO POOR APPETITE. PATIENT REMAINED CONTINENT THROUGHOUT SHIFT WITH REMINDING TO GO TO THE BATHROOM PERIODICALLY. PATIENT PERFORMED HER OWN PERICARE AFTER EACH TOILETING. PATIENT CONTINUES TO SAY NO AT TIMES BUT DOES WHAT IS ASKED INDEPENDENTLY.
[2023-05-06 20:04] VITALS: BP 106/77
[2023-05-07 04:39] VITALS: BP 119/84
--- NOTE | 2023-05-07 05:43 | NUR ---
MARTHA REFUSED HER ORAL ZYPREXA AT BEDTIME LAST NIGHT, BUT SLEPT WELL ALL NIGHT. SHE WAS UP ONCE IN THE MIDDLE OF THE NIGHT TO VOID AND ALLOW US TO CLEAN HER BED SHE HAD VOMITED SHORTLY AFTER WE TURNED OUT THE LIGHTS, FROM THE LOOK OF THE TABLE, SHE HAD EATEN SEVERAL "COOKIES, PEANUT BUTTER AND MULTIPLE PARTIAL SODAS. THE VOMIT WAS CHUNKY AND LIGHT BROWN, AROUND 100 MLS.
[2023-05-07 07:27] VITALS: BP 99/69
--- NOTE | 2023-05-07 09:00 | NUR ---
pt laying in bed with eyes closed, wakes easily, answers no to everything, refusing to eat breakfast, sitter in room, pt directable at this time, refusing to allow assessment, did allow lovenox injection, came out in stock asking nurse to open door for her so she can leave, went back to her room when told she cant leave, gait noted to be steady, no further changes this shift, call light in reach.
[2023-05-07 15:21] VITALS: BP 103/70
--- NOTE | 2023-05-07 18:13 | NUR ---
pt has slept on and off through out the day, when awake would come out in the stock and ask to be let out, but is directable. no acute changes this shift. call light in reach.
[2023-05-07 20:03] VITALS: BP 110/74
--- NOTE | 2023-05-08 03:26 | NUR ---
Deysi was pleasant and awake for several hours from 2200 until 0100. during that time, Deysi ate one pudding (very quickly) and almost immediately vomited. she had vomited earlier while walking in the stock after drinking water. first time cloudy white. order for ZOFRAN 4mg ODT received and given. unclear whether the Zofran was retained. Oddly, Deysi did not seem bothered by the events. Later that evening, she was awakened with bilateral lower ext cramping pain which resolved with 650mg Tylenol. no additional nausea or leg pain noted. as patient was somnolent through hs meds, and showed no signs of agitation throughout the night.
[2023-05-08 07:38] VITALS: BP 103/72
--- NOTE | 2023-05-08 11:03 | NUR ---
PER DR ELIZALDE REQUEST, CBG TAKEN, 91.
[2023-05-08 15:20] VITALS: BP 106/71
--- NOTE | 2023-05-08 18:11 | NUR ---
PT PLEASNT TODAY, DID ESCAPE DOOR AND I HAD TO BRING HER BACK TO ROOM AND HALLWAY. RETURNED WITHOUT INCIDENT. PT CONTINUES TO THROW UP AFTER EATING FOOD, SHE EATS VERY FAST THEN FOOD BOUNCES UP AND OUT. DISCUSSED WITH DR ELIZALDE. ORDERS FOR ZOFRAN > MEALS. SOME SMALL IMPROVEMENT NOTED. TRY TO SLOW THE EATING, BUT MOSTLY UNSUCCESSFUL. PT DID TAKE PO ZYPREXA LUNCH TIME, WHICH HELPED SOME. TYLENOL FOR PAIN TODYA. NO OTHER CONCERNS NOTED. BED IN LOW POSITION, CALL LITE IN REACH, WALKS TO DOOR FOR ASSISTANCE
[2023-05-09 04:27] VITALS: BP 100/65
--- NOTE | 2023-05-09 05:18 | NUR ---
NO VOMITING OVERNIGHT FOR MARTHA, EVEN AFTER EATING SEVERAL SU CRACKERS, PUDDING AND TWO SMALL ENSURES. PATIENT WAS AGREEABLE TO TAKING BOTH HER ZOFRAN WELL HER ZYPREXA IN APPLESAUCE UNDER THE AUSPICES OF THEM BOTH BEING FOR HER STOMACH. TYLENOL GIVEN TWICE FOR LEG PAIN WITH GOOD RESULT
[2023-05-09 07:16] VITALS: BP 102/67
[2023-05-09 16:29] VITALS: BP 105/67
--- NOTE | 2023-05-09 16:38 | NUR ---
SHIFT SUMMARY Pt remains alert this shift. Ambulating independently. Afraid to use the toilet in the bathroom, stating "the bathroom is to big". Formed BM and voids per bsc. Episodes of emesis after lunch today. Meds given as ordered. BLE pain managed with po meds. 1:1 sitter within view.
[2023-05-09 19:47] VITALS: BP 93/70
--- NOTE | 2023-05-10 03:42 | NUR ---
SHIFT SUMMARY. TOOK OVER CARE OF PATIENT HALF WAY THROUGH SHIFT. HAS BEEN UNREMARKABLE THUS FAR, PT HAS SLEPT THROUGH SHIFT SINCE TAKING OVER CARE. 1:[address] FOR SAFETY[address] BED LOCKED IN LOWEST POSITION. CALL LIGHT LEFT WITHIN REACH.
[2023-05-10 03:50] VITALS: BP 96/69
[2023-05-10 07:46] VITALS: BP 108/71
[2023-05-10 15:29] VITALS: BP 98/69
--- NOTE | 2023-05-10 17:19 | NUR ---
SHIFT SUMMARY: Pt remains alert to self. Ambulating independently. Pt declines to use the bathroom, stating its to big. Will use bsc. Voiding without difficulty. 1 episode of small emesis after lunch. Pepcid given. Pain and safety maintained.
[2023-05-10 19:14] VITALS: BP 102/68
--- NOTE | 2023-05-11 03:24 | NUR ---
SHIFT SUMMARY. SHIFT HAS BEEN UNREMARKABLE. PT AOX3, PLEASANT, COOPERATIVE WITH CARE THIS SHIFT. FREQUENTLY SNACKING WITH NO REPORTS OF NAUSEA OR VOMITING THUS FAR. MOSTLY COOPERATIVE WITH SHIFT ASSESSMENT OUTSIDE OF SOME ASPECTS OF SKIN ASSESSMENT. TOOK 2100 MEDICATION WITHOUT DIFFICULTY. HAS SLEPT SPORADICALLY. 1:[address] FOR SAFETY. NO COMPLAINTS OF PAIN THUS FAR THIS SHIFT. BED LOCKED IN LOWEST POSITION. CALL LIGHT LEFT WITHIN REACH.
[2023-05-11 07:18] VITALS: BP 105/71
--- NOTE | 2023-05-11 15:42 | NUR ---
PT BOYFRIEND CALLED FOR UPDATE ON PT STATUS. DUE TO PT HOLD AND INABILITY TO CONSENT TO ME TALKING WITH ANYONE BESIDES GUARDIAN, I INFORMED HIM THAT I WASNT ALLOWED TO DISCUSS PT INFORMATION. HE WAS CALM AND COOPERATIVE. DIRECTED HIM TO CALL GUARDIAN FOR UPDATES.
[2023-05-11 15:54] VITALS: BP 99/67
--- NOTE | 2023-05-11 18:02 | NUR ---
SHIFT SUMMARY PT CONTINUES TO HAVE EMESIS IMMEDIATELY FOLLOWING MEALS AND SNACKS. PER SITTER, NOT SELF INDUCED. PER JACQUARD LOOM CARPET WEAVER, PT HAD 2 BM TODAY THAT WERE BOTH LARGE AMOUNTS OF "SMALL HARD JAQUAN" TREATED WITH NAUSEA MEDICAITON PRIOR TO MEALS. PT DECLINES FEELING NAUSEATED. IT SEEMS MORE LIKE A AUTOMATED RESPONSE. PRN STOOL SOFTNER GIVEN PER EMAR. ABDOMEN IS SOFT AND NON TENDER. AUSCULTATION IS DIFFICULT TO PREFORM DUE TO PT REFUSAL, HOWEVER I BELIEVE BOWEL TONES ARE PRESENT DISCUSSED CONCERN WITH MD. PLS SEE PREVIOUS NOTE. PT IS ALERT AND ORIENTED X2. WALKED UP AND DOWN THE KUMAR TODAY. R/A
--- NOTE | 2023-05-11 18:17 | NUR ---
SPOKE WITH DR. CASSIE SANTOS ABOUT CONTINUED EMESIS AFTER MEALS AND CONSTIPATION. PER MD, ORDER ABD XRAY AND 5MG METOCLOPRAMIDE TID/AC.
[2023-05-11 19:51] VITALS: BP 103/74
--- NOTE | 2023-05-12 03:32 | NUR ---
SHIFT SUMMARY. SHIFT HAS BEEN UNREMARKABLE. PT HAS BEEN AOX2-3, VERY PLEASANT, COOPERATIVE WITH CARE THIS SHIFT. ABD XR COMPLETED EARLY IN SHIFT. PT HAS SNACKED SPORADICALLY. BEFORE SNACK EARLY THIS MORNING, ADMINISTERED PRN ZOFRAN ABOUT ~ 30 MINUTES BEFOREHAND AND PT HAD NO EMESIS AFTER EATING. SOME TIME LATER, PT AGAIN ATE SOME SNACKS WITHOUT PRN ZOFRAN BEING ADMINISTERED BEFOREHAND AND DID HAVE A BOUT OF EMESIS. REPORTED FEELING TOTALLY FINE AFTER THE EPISODE AND DENIED ANY RESIDUAL NAUSEA. DOES NOT USE CALL LIGHT BUT IS ABLE TO MAKE HER NEEDS KNOWN. 1:[address] FOR SAFETY. PT HAS SLEPT SPORADICALLY THROUGHOUT SHIFT. BED LOCKED IN LOWEST POSITION. CALL LIGHT LEFT WITHIN REACH.
[2023-05-12 05:31] VITALS: BP 109/73
[2023-05-12 07:33] VITALS: BP 100/66
[2023-05-12 20:09] VITALS: BP 99/68
--- NOTE | 2023-05-13 02:30 | NUR ---
SHIFT SUMMERY, PT WAS SLEEPING IN BED BEFORE MEDS COULD BE GIVEN. PT AWOKE EASILY AND COOPERATIVE AND TOOK MEDS WITH OUT ANY DIFFICULTY. PT CONTINUING TO SLEEP. PT APPEAR TO BE COMFORTABLE RSPERATIONS EVEN AND UNLABORD. CALL LIGHT IN REACH.
[2023-05-13 03:15] VITALS: BP 98/66
[2023-05-13 07:24] VITALS: BP 98/68
[2023-05-13 16:19] VITALS: BP 110/74
--- NOTE | 2023-05-13 17:26 | NUR ---
SHIFT SUMMARY: MARTHA HAS BEEN PLEASANT AND COOPERATIVE WITH STAFF. SHE HAS REQUESTED TO TAKE SEVERAL WALKS IN THE HALLWAY, ATTENDS IN PLACE. SHE IS TOLERATING PO INTAKE WELL, DENIES NAUSEA OR VOMITING. SHE HAS USED THE BEDSIDE COMMODE INDEPENDENTLY TODAY AND HAS BEEN AMENDABLE TO TAKE HER PO MEDICATIONS. SHE IS LYING IN BED WITH THE CALL LIGHT IN REACH. WCTM UNTIL REPORT IS GIVEN TO COMMUNITY NUTRITION EDUCATOR RN.
[2023-05-13 19:52] VITALS: BP 115/83
--- NOTE | 2023-05-14 01:46 | NUR ---
SHIFT SUMMERY, PT AT THIS TIME APPEARS TO BE ASLEEP. RESPERATIONS EVEN AND UNLABORED. EARLYER PT AMBULATINGIN ROOM AND IN KUMAR, FREQUENTLY PUSHING ON DOOR TO SEE IF SHE COULD GET OUT. PT VERY COOPERATIVE TOOK MEDICATIONS WITH OUT ANY DIFFICULTY, OR ARGUMENT. CALL LIGHT IN REACH.
[2023-05-14 04:19] VITALS: BP 102/74
[2023-05-14 08:12] VITALS: BP 101/72
--- NOTE | 2023-05-14 13:42 | NUR ---
ASSUMED OF PT. PT IN HALLWAY WALKING BACK AND FORTH. HAD AN EPISODE OF NAUSEA AFFTER LUNCH.
[2023-05-14 15:53] VITALS: BP 106/69
--- NOTE | 2023-05-14 18:37 | NUR ---
SHIFT SUMMARY PT WALKING IN HALLWAY INDEPENDENTLY. SEVERAL ATTEMPTS TO GET OUT OF CLOSED DOORS. WALKED WITH ACCOMPANIMENT IN MAIN HALLWAYS APPROPRIATELY. REQUESTING TYLENOL 2 TIMES THIS AFTERNOON. EPISODE ON NAUSEA AFTER LUNCH BUT NO FURTHER TODAY.
[2023-05-14 19:23] VITALS: BP 98/67
--- NOTE | 2023-05-15 04:11 | NUR ---
SHIFT SUMMERY. PT EARALY IN SHIFT AMBULATING AROUNG THE HALLS. PT NOW SEEMS TO BE ASLEEP RESTING COMFORTABLY IN HER BED. CALL LIGHT IN REACH.
[2023-05-15 04:25] VITALS: BP 98/70
[2023-05-15 08:18] VITALS: BP 101/69
[2023-05-15 17:20] VITALS: BP 100/70
--- NOTE | 2023-05-15 18:02 | NUR ---
NO IV ACCESS, ROOM AIR. PT HAS NOT HAD MUCH APPETITE THIS SHIFT. INDEPENDENT IN ROOM, PACING THE UNIT WITH FREQUENT REQUESTS OF STAFF TO TAKE HER ON A WALKING BREAK AROUND THE 3RD FLOOR. PT WILL WALK TO THE PIG AND BACK. SHE IS REDIRECTABLE AND COOPERATIVE WITH CARE THIS SHIFT. NO ACUTE CHANGES.
[2023-05-15 21:09] VITALS: BP 110/74
--- NOTE | 2023-05-16 04:30 | NUR ---
SHIFT SUMMARY; NO ACUTE CHANGES OVERNIGHT. THE PT IS AXO X3 AND INDEPENDENT IN THE ROOM. THE PT HAS BEEN COOPERATIVE OF CARE THIS EVENING. THE PT ALLOWED ME TO LISTEN TO HER HEART AND LUNGS AND LOOK AT HER FEET BUT THAT IS ALL SHE ALLOWED ME TO ASSESS. THE PT HAS REQUESTED SPRITE, AND SU CRACKERS AND PEANUT BUTTER A FEW TIME T/O THE NIGHT. THE PT HAS DENIED ANY SOB, CHEST PAIN/PRESSURE, PAIN OR N/V THIS SHIFT. CURRENTLY THE PT IS SLEEPING IN BED WITH THE BED IN THE LOWEST POSITION AND THE CALL LIGHT AT BEDSIDE. FIRE SAFETY MAINTAINED T/O THE NIGHT.
[2023-05-16 05:04] VITALS: BP 116/79
[2023-05-16 07:17] VITALS: BP 105/70
[2023-05-16 15:56] VITALS: BP 100/69
--- NOTE | 2023-05-16 16:31 | NUR ---
NOTE PT COOPERATIVE WITH CARE. PACING IN HALLWAY. RESPECTFULLY REQUESTS TO GO FOR LONGER WALKS AROUND THE UNIT WITH STAFF. GAIT STEADY. DECLINED REGLAN. DECLINED MEALS BUT WANTEDA SNACK OF SU CRACKERS AND PEANUT BUTTER. DECLINED FOOT WOUND CARE TODAY. CONTINUE POC.
[2023-05-16 19:19] VITALS: BP 102/71
[2023-05-17 04:23] VITALS: BP 96/70
--- NOTE | 2023-05-17 04:54 | NUR ---
SHIFT SUMMARY; NO ACUTE CHANGES OVERNIGHT. THE PT IS AXO X2-3, COOPERATIVE W/ CARE. THE PT IS INDEPENDENT IN THE ROOM AND AMBULATES IN THE HALLWAY FREQUENTLY. THE PT HAS REQUESTED MANY SNACKS AND SPRITES T/O THE NIGHT. THE PT DENIES ANY SOB, CHEST PAIN/PRESSURE, N/V OR PAIN. CURRENTLY THE PT IS SLEEPING IN BED WITH THE BED IN THE LOWEST POSITION AND THE CALL LIGHT AT BEDSIDE. FIRE SAFETY MAINTAINED T/O THE NIGHT.
[2023-05-17 07:23] VITALS: BP 97/67
[2023-05-17 15:35] VITALS: BP 104/71
--- NOTE | 2023-05-17 17:02 | NUR ---
NOTE PT WALKING ALOT. PACING AT TIMES. THIS AFTERNOON TOOK HER OUTSIDE IN W/C. SHE WAS EXCITED AND NERVIOUS. SHE WAS NOT COMFORTABLE GETTING TO FAR FROM THE BUILDING. SHE IS HOPING TO GO OUTSIDE AGAIN TOMORROW. VSS. GOOD APPETITE. DENIED NAUSEA TODAY. REFUSED REGLAN TODAY AND LOVENOX. EATING WELL. CONTINUE POC.
[2023-05-17 19:07] VITALS: BP 98/70
--- NOTE | 2023-05-18 04:22 | NUR ---
SHIFT SUMMARY; NO ACUTE CHANGES OVERNIGHT. THE PT IS AXO X3 AND INDEPENDENT IN THE ROOM. THE PT HAS BEEN RESTING IN BED FOR THE MAJORITY OF THE NIGHT. THE PT HAS REQUESTED MANY SNACKS, 10+ OF PUDDING, SU CRACKERS W/ PEANUT BUTTER, CHEESE STICKS, SALTINE CRACKERS AND SPRITES. THE PT DENIES ANY SOB, CHEST PAIN/PRESSURE, N/V OR PAIN THIS SHIFT. CURRENTLY THE PT IS SITTING IN BED EATING PUDDING WITH THE BED IN THE LOWEST POSITION AND THE CALL LIGHT AT BEDSIDE. FIRE SAFETY MAINTAINED T/O THE NIGHT.
[2023-05-18 04:23] VITALS: BP 100/65
[2023-05-18 07:12] VITALS: BP 102/68
--- NOTE | 2023-05-18 13:41 | NUR ---
OFELIA Fuentes RN FROM THE [facility] IN [place] CALLED AND STATED THAT AFTER REVIEWING THE PATIENT'S PACKET AND SEEING THAT THE PATIENT IS IN NEED OF A SENIOR CARE CARE SITUATION. HE STATED THAT THEY ARE UNFORTUNATELY NOT EQUIPED FOR THAT AT THEIR FACILITY. WILL PASS MESSAGE ONTO THE NURSE RVDA MASTER CERTIFIED RV TECHNICIAN.
[2023-05-18 15:23] VITALS: BP 96/66
--- NOTE | 2023-05-18 18:33 | NUR ---
SHIFT SUMMARY: MARTHA IS A PLEASANT 53 YEAR OLD FEMALE HERE NOW AWAITING PLACEMENT FOR A PSYCHIATRIC LONGTERM CARE FACILITY FOR SCHIZOPHRENIA. SHE IS A&O X4, INDEPENDENT, AND AMBULATES FREQUENTLY, AND ASKS TO GO ON WALKS OUTSIDE OF THE UNIT OFTEN, WHICH HAS BEEN OKAYED LONG THE PT IS SUPERVISED. APPETITE IT POOR, ONLY ONE OCCURANCE OF VOMITING TODAY WHICH WAS VERY LITTLE POST LUNCH. BUT OVERALL HAS BEEN REFUSING MEDICATION. DUE TO CHRONICALLY WALKING BAREFOOT SHE DID HAVE SOME SORE AREAS ON THE BOTTOMS OF HER FEET, THAT HAVE NO IMRPOVED. REAPPLICATION OF BANDAGES NOT NEEDED, FEET CLEANSED, HYDRATING BARRIER CREAM, AND FRESH SOCKS APPLIED. PT DOESN'T SHOW ANY SIGNS OF SYMPTOMS OF DISTRESS, SHE OCCASSIONALLY USES HER CALL LIGHT, BUT MAINLY JUST GETS UP AND ASK FOR HELP OUT IN THE KUMAR. CONTINUE TO OBSERVE PATIENT AND PROVIDE CARE WHILE AWAITING PLAN FOR PLACEMENT.
[2023-05-18 19:37] VITALS: BP 107/70
[2023-05-19 03:19] VITALS: BP 104/75
--- NOTE | 2023-05-19 05:26 | NUR ---
SHIFT SUMMARY - NO ACUTE CHANGES THROUGHOUT THIS SHIFT. PT HAS BEEN AMBULATING IN HALLS WITH ONE STAFF MEMBER. PT IS PLEASANT, AND COOPERATIVE WITH CARE. PT HAS BEEN REQUESTING FOOD/FLUIDS TONIGHT - APPETITE IMPROVED. PT REPORTS BM TODAY, DENIES ANY URINARY COMPLICATIONS. PT DENIES ANY PAIN OR DISCOMFORT. CALL LIGHT WITHIN REACH. BED IN LOW POSITION. FLUIDS/FOOD AT BEDSIDE. WILL CONTINUE TO MONITOR UNTIL AM SHIFT CHANGE.
[2023-05-19 07:33] VITALS: BP 109/72
[2023-05-19 14:46] VITALS: BP 115/70
--- NOTE | 2023-05-19 17:25 | NUR ---
SHIFT SUMMARY: MARTHA IS A 53 YEAR OLD FEMALE HERE AWAITING PLACEMENT. SHE IS A&O X4, INDEPENDENT, PLEASANT, AND COOPERATIVE WITH STAFF. HER FOOD INTAKE IS STILL POOR, BUT GETTING THE PATIENT TO EAT IS STILL BEING ENCOURAGED. FLUID INTAKE IS ADEQUATE AND NO EPISODES OF EMISIS TODAY. SHE DID EXCEPT A SINGLE DOSE OF REGLAN TODAY, BUT ALL OTHER MEDICATIONS DENIED. SHE CONTINUES TO AMBULATE FREQUENTLY IN THE HALLS AND SUPERVISED WITH STAFF OUTSIDE OF THE UNIT. THE BOTTOMS OF HER FEET REMAIN THE SAME, BARRIER CREAM AND FRESH SOCKS APPLIED. SHE DOES NOT SHOW ANY SIGNS OR SYMPTOMS OF DISTRESS.
[2023-05-19 20:00] VITALS: BP 103/67
[2023-05-20 03:38] VITALS: BP 103/71
--- NOTE | 2023-05-20 06:14 | NUR ---
SHIFT SUMMARY NO EVENTS OVERNIGHT. FIRE SAFETY REVIEWED, NO IGNITION SOURCES
[2023-05-20 07:18] VITALS: BP 100/66
--- NOTE | 2023-05-20 14:41 | NUR ---
Patient medically stable for discharge, no acute changes this shift. manager professional development discussed plan with guardian, Gail, she gave the OK to discharge patient home with boyfriend. Taxi ride set up. RN reviewed discharge teaching, crisis number to call if needed and medication olanzapine. Patient verbalized understanding. Patient left medical floor at 1415.
== END 2023-05-20 14:33 | disposition home or self-care (01) ==
LOC: ER 15:50 → MEDS 15:51 → EOR 15:51 → MEDS 04-08 21:41 → ENPENDDIS 05-20 10:18 → MEDS 05-20 14:33
PROVIDERS: Emergency Medicine; Student in an Organized Health Care Education/Training Program; ADMIT Student in an Organized Health Care Education/Training Program
DX: F03.918 Unspecified dementia, unspecified severity, with other behavioral disturbance (principal); F20.9 Schizophrenia, unspecified; F15.10 Other stimulant abuse, uncomplicated; F43.10 Post-traumatic stress disorder, unspecified; L97.429 Non-pressure chronic ulcer of left heel and midfoot with unspecified severity; G24.02 Drug induced acute dystonia; Z88.2 Allergy status to sulfonamides; Z87.891 Personal history of nicotine dependence
CPT/HCPCS: 36415; 73620; 74018; 80053; 81001; 81025; 82947; 84484; 85025; 87070; 87075; 87086; 87205; 93005; 93010; 96360; 96372; 99285-25; A9270; G0378; G0480; J0696; J1630; J1650; J7030

== ENCOUNTER 2023-05-25 09:12 | Observation (INO) | payer OTHER ==
[~2023-05-25] VITALS: Ht 162.6 cm; Wt 68.0 kg
[~2023-05-25 09:12] MED LIST changes: +OLANZAPINE1024 PO
[2023-05-25 14:58] LABS: Source, Urine Clean Catch
[2023-05-25 15:10] LABS: Appearance, Urine Hazy (Clear); Bilirubin, Urine Neg (Neg); Blood, Urine Neg (Neg); Color, Urine Yellow (P-Yellow); Glucose Qualitative, Urine Neg (Neg); Ketones, Urine 3+ (Neg); Leukocyte Esterase, Urine Neg (Neg); Nitrite, Urine Neg (Neg); Protein, Urine 1+ (Neg); Specific Gravity, Urine 1.025 (1.003-1.022); Urobilinogen, Urine NORM (Normal)
[2023-05-25 15:30] LABS: Amorphous Light (0-Heavy); Bacteria Mod /hpf; Mucus Light (0-Heavy); Red Blood Cells, Urine 0-2 /hpf (0-2); Squamous Epithelial Cells Few /hpf (Few); Transitional Epithelial Cells Rare /hpf (0-Rare)
[2023-05-25 15:31] LABS: Granular Casts 0-2 /lpf (0); Hyaline Casts 0-2 /lpf (0-2)
[2023-05-25 15:33] LABS: U Amphetamine Screen DETECTED; U Barbituate Screen Not Detected; U Benzodiazapine Screen Not Detected; U Buprenorphine Screen Not Detected; U Cannabinoids Screen Not Detected; U Cocaine Screen Not Detected; U Methadone Screen Not Detected; U Methamphetamine Screen DETECTED; U Opiates Screen Not Detected; U Oxycodone Screen Not Detected; U Phencyclidine Screen Not Detected; U Propoxyphene Screen Not Detected
[2023-05-25 18:17] LABS: BASOPHILS ABSOLUTE AUTO 0.05 K/mm3 (0.00-0.23); BASOPHILS PERCENT AUTO 1 % (0-2); EOSINOPHILS ABSOLUTE AUTO 0.06 K/mm3 (0.00-0.68); EOSINOPHILS PERCENT AUTO 1 % (0-6); Hematocrit 41.6 % (33.0-51.0); IMMATURE GRAN ABSOLUTE AUTO 0.02 K/mm3 (0.00-0.10); IMMATURE GRAN PERCENT AUTO 0 % (0-1); LYMPHOCYTES ABSOLUTE AUTO 2.64 K/mm3 (0.84-5.20); LYMPHOCYTES PERCENT AUTO 31 % (21-46); MONOCYTES ABSOLUTE AUTO 0.66 K/mm3 (0.16-1.47); MONOCYTES PERCENT AUTO 8 % (4-13); Mean Corpuscular HGB 29.6 pg (26.0-34.0); Mean Corpuscular HGB Conc 31.3 g/dL (31.5-36.5); Mean Corpuscular Volume 95 fL (80-100); NEUTROPHILS ABSOLUTE AUTO 5.04 K/mm3 (1.96-9.15); NEUTROPHILS PERCENT AUTO 60 % (41-73); Platelet Count 100 K/mm3 (150-400); RDW Coefficient Variation 13.5 % (11.7-14.2); RDW Standard Deviation 47.1 fL (35.1-46.3); Red Blood Cell Count 4.39 M/mm3 (3.80-5.20); White Blood Cell Count 8.47 K/mm3 (4.00-11.30)
[2023-05-25 18:39] LABS: Ethanol (Alcohol), Blood, Med <3 mg/dL; Salicylate <1.7 mg/dL (2.8-20.0)
[2023-05-25 18:42] LABS: Acetaminophen, Random <2.0 ug/mL (10.0-30.0); Alanine Aminotransfer (ALT/SGP 77 U/L (12-78); Alk Phos 86 U/L (50-136); Anion Gap 8 mmol/L (6-16); Aspartate Aminotrans (AST/SGOT 70 U/L (12-37); Bilirubin, Total 1.4 mg/dL (0.1-1.0); Blood Urea Nitrogen 36 mg/dL (8-24); Bun/Creatinine Ratio 59.1 (12.0-20.0); CO2, Blood 18 mmol/L (21-32); Calcium, Blood 9.6 mg/dL (8.5-10.1); Chloride, Blood 111 mmol/L (98-108); Creatinine, Blood 0.61 mg/dL (0.40-1.00); Globulin, Blood 3.9 g/dL (2.2-4.0); Glomerular Filtration Rate 108 (60-); Glucose, Blood 100 mg/dL (70-99); Potassium, Blood 4.6 mmol/L (3.5-5.5); Sodium, Blood 137 mmol/L (136-145); Total Protein, Blood 7.9 g/dL (6.4-8.2)
[2023-06-10 20:02] LABS: Bun/Creatinine Ratio 25.4 (12.0-20.0); Calcium, Blood 9.7 mg/dL (8.5-10.1); Creatinine, Blood 0.71 mg/dL (0.40-1.00); Potassium, Blood 4.3 mmol/L (3.5-5.5)
[2023-06-10 20:03] LABS: BASOPHILS ABSOLUTE AUTO 0.05 K/mm3 (0.00-0.23); BASOPHILS PERCENT AUTO 1 % (0-2); EOSINOPHILS ABSOLUTE AUTO 0.04 K/mm3 (0.00-0.68); EOSINOPHILS PERCENT AUTO 0 % (0-6); Hematocrit 42.1 % (33.0-51.0); Hemoglobin 13.9 g/dL (11.5-16.0); IMMATURE GRAN ABSOLUTE AUTO 0.01 K/mm3 (0.00-0.10); IMMATURE GRAN PERCENT AUTO 0 % (0-1); LYMPHOCYTES ABSOLUTE AUTO 2.65 K/mm3 (0.84-5.20); LYMPHOCYTES PERCENT AUTO 29 % (21-46); MONOCYTES ABSOLUTE AUTO 0.56 K/mm3 (0.16-1.47); MONOCYTES PERCENT AUTO 6 % (4-13); Mean Corpuscular HGB 29.4 pg (26.0-34.0); Mean Corpuscular Volume 89 fL (80-100); Mean Platelet Volume 8.7 fL (9.1-12.4); NEUTROPHILS ABSOLUTE AUTO 5.85 K/mm3 (1.96-9.15); NEUTROPHILS PERCENT AUTO 64 % (41-73); Platelet Count 440 K/mm3 (150-400); RDW Coefficient Variation 12.6 % (11.7-14.2); RDW Standard Deviation 41.1 fL (35.1-46.3); Red Blood Cell Count 4.73 M/mm3 (3.80-5.20); White Blood Cell Count 9.16 K/mm3 (4.00-11.30)
[2023-06-13 10:00] VITALS: BP 121/68
[2023-06-14] MEDS ORDERED: QUET25 PO (19:12)
== END 2023-06-13 14:50 | disposition home or self-care (01) ==
LOC: ER 09:12 → EOR 09:13
PROVIDERS: Emergency Medicine; ADMIT Student in an Organized Health Care Education/Training Program
DX: R45.851 Suicidal ideations (principal); F15.90 Other stimulant use, unspecified, uncomplicated; F43.10 Post-traumatic stress disorder, unspecified; F29 Unspecified psychosis not due to a substance or known physiological condition; F03.918 Unspecified dementia, unspecified severity, with other behavioral disturbance; Z88.2 Allergy status to sulfonamides; Z87.891 Personal history of nicotine dependence
CPT/HCPCS: 80048; 80053; 81001; 81025; 85025; 87086; 93005; 93010; 99285-25; A9270; G0378; G0480; J2250

== ENCOUNTER 2023-06-13 18:23 | Observation (INO) | payer OTHER ==
[~2023-06-13] VITALS: Ht 162.6 cm; Wt 59.0 kg
[2023-06-14] MEDS ORDERED: QUET25 PO (19:12)
[2023-06-14 20:15] VITALS: BP 142/86
== END 2023-06-15 12:00 | disposition home or self-care (01) ==
LOC: ER 18:23 → EOR 18:24
PROVIDERS: ADMIT Emergency Medicine
DX: F03.918 Unspecified dementia, unspecified severity, with other behavioral disturbance (principal)
CPT/HCPCS: 96372; 99285-25; A9270; G0378

== ENCOUNTER 2023-06-17 17:24 | Observation (INO) | payer OTHER ==
[~2023-06-17] VITALS: Ht 170.2 cm; Wt 59.0 kg
[2023-06-17 17:37] VITALS: BP 127/99
[2023-06-17 19:22] LABS: BASOPHILS ABSOLUTE AUTO 0.04 K/mm3 (0.00-0.23); BASOPHILS PERCENT AUTO 0 % (0-2); EOSINOPHILS ABSOLUTE AUTO 0.03 K/mm3 (0.00-0.68); EOSINOPHILS PERCENT AUTO 0 % (0-6); Hematocrit 36.5 % (33.0-51.0); Hemoglobin 12.6 g/dL (11.5-16.0); IMMATURE GRAN ABSOLUTE AUTO 0.02 K/mm3 (0.00-0.10); IMMATURE GRAN PERCENT AUTO 0 % (0-1); LYMPHOCYTES ABSOLUTE AUTO 1.95 K/mm3 (0.84-5.20); LYMPHOCYTES PERCENT AUTO 21 % (21-46); MONOCYTES ABSOLUTE AUTO 0.55 K/mm3 (0.16-1.47); MONOCYTES PERCENT AUTO 6 % (4-13); Mean Corpuscular HGB 29.7 pg (26.0-34.0); Mean Corpuscular HGB Conc 34.5 g/dL (31.5-36.5); Mean Corpuscular Volume 86 fL (80-100); Mean Platelet Volume 8.9 fL (9.1-12.4); NEUTROPHILS PERCENT AUTO 72 % (41-73); Platelet Count 370 K/mm3 (150-400); RDW Coefficient Variation 13.2 % (11.7-14.2); RDW Standard Deviation 40.2 fL (35.1-46.3); Red Blood Cell Count 4.24 M/mm3 (3.80-5.20); White Blood Cell Count 9.39 K/mm3 (4.00-11.30)
[2023-06-17 19:47] LABS: Salicylate <1.7 mg/dL (2.8-20.0)
[2023-06-17 19:48] LABS: Ethanol (Alcohol), Blood, Med <3 mg/dL
[2023-06-17 19:53] LABS: Alanine Aminotransfer (ALT/SGP 26 U/L (12-78); Albumin/Globulin Ratio 1.1 (0.8-1.8); Alk Phos 70 U/L (50-136); Anion Gap 4 mmol/L (6-16); Aspartate Aminotrans (AST/SGOT 22 U/L (12-37); Blood Urea Nitrogen 14 mg/dL (8-24); Bun/Creatinine Ratio 20.3 (12.0-20.0); CO2, Blood 26 mmol/L (21-32); Calcium, Blood 9.9 mg/dL (8.5-10.1); Chloride, Blood 111 mmol/L (98-108); Creatinine, Blood 0.69 mg/dL (0.40-1.00); Globulin, Blood 3.8 g/dL (2.2-4.0); Glomerular Filtration Rate 104 (60-); Glucose, Blood 150 mg/dL (70-99); Potassium, Blood 3.9 mmol/L (3.5-5.5); Sodium, Blood 141 mmol/L (136-145); Total Protein, Blood 7.8 g/dL (6.4-8.2)
[2023-06-17 19:54] LABS: Acetaminophen, Random <2.0 ug/mL (10.0-30.0)
[2023-06-18 16:07] LABS: Source, Urine Clean Catch
[2023-06-18 16:19] LABS: Appearance, Urine Turbid (Clear); Bilirubin, Urine 1+ (Neg); Blood, Urine Neg (Neg); Color, Urine Amber (P-Yellow); Glucose Qualitative, Urine Neg (Neg); Ketones, Urine 1+ (Neg); Leukocyte Esterase, Urine 1+ (Neg); Nitrite, Urine Neg (Neg); Protein, Urine 2+ (Neg); Specific Gravity, Urine 1.025 (1.003-1.022); Urobilinogen, Urine 3+ (Normal)
[2023-06-18 16:22] LABS: Amorphous Heavy (0-Heavy); Bacteria Mod /hpf; Red Blood Cells, Urine 0-2 /hpf (0-2); Squamous Epithelial Cells Few /hpf (Few)
[2023-06-18 16:24] LABS: U Amphetamine Screen DETECTED; U Barbituate Screen Not Detected; U Benzodiazapine Screen Not Detected; U Buprenorphine Screen Not Detected; U Cannabinoids Screen Not Detected; U Cocaine Screen Not Detected; U Methadone Screen Not Detected; U Methamphetamine Screen DETECTED; U Opiates Screen Not Detected; U Oxycodone Screen Not Detected; U Phencyclidine Screen Not Detected; U Propoxyphene Screen Not Detected
== END 2023-06-18 22:37 | disposition home or self-care (01) ==
LOC: ER 17:24 → EOR 17:25
PROVIDERS: ADMIT Student in an Organized Health Care Education/Training Program
DX: F15.90 Other stimulant use, unspecified, uncomplicated (principal); F03.918 Unspecified dementia, unspecified severity, with other behavioral disturbance
CPT/HCPCS: 80053; 81001; 85025; 93005; 93010; 96372; 99285-25; A9270; G0378; G0480; J2060

== ENCOUNTER 2023-07-10 12:02 | Observation (INO) | payer OTHER ==
[~2023-07-10] VITALS: Ht 167.6 cm; Wt 56.7 kg
[2023-07-10 14:50] LABS: BASOPHILS ABSOLUTE AUTO 0.05 K/mm3 (0.00-0.23); BASOPHILS PERCENT AUTO 1 % (0-2); EOSINOPHILS ABSOLUTE AUTO 0.03 K/mm3 (0.00-0.68); EOSINOPHILS PERCENT AUTO 1 % (0-6); Hematocrit 41.4 % (33.0-51.0); Hemoglobin 13.5 g/dL (11.5-16.0); IMMATURE GRAN ABSOLUTE AUTO 0.01 K/mm3 (0.00-0.10); IMMATURE GRAN PERCENT AUTO 0 % (0-1); LYMPHOCYTES ABSOLUTE AUTO 2.13 K/mm3 (0.84-5.20); LYMPHOCYTES PERCENT AUTO 35 % (21-46); MONOCYTES ABSOLUTE AUTO 0.57 K/mm3 (0.16-1.47); MONOCYTES PERCENT AUTO 9 % (4-13); Mean Corpuscular HGB 29.1 pg (26.0-34.0); Mean Corpuscular HGB Conc 32.6 g/dL (31.5-36.5); Mean Corpuscular Volume 89 fL (80-100); Mean Platelet Volume 8.6 fL (9.1-12.4); NEUTROPHILS ABSOLUTE AUTO 3.31 K/mm3 (1.96-9.15); NEUTROPHILS PERCENT AUTO 54 % (41-73); Platelet Count 438 K/mm3 (150-400); RDW Coefficient Variation 12.7 % (11.7-14.2); RDW Standard Deviation 41.6 fL (35.1-46.3); Red Blood Cell Count 4.64 M/mm3 (3.80-5.20)
[2023-07-10 15:08] LABS: Ethanol (Alcohol), Blood, Med <3 mg/dL; Salicylate 1.7 mg/dL (2.8-20.0)
[2023-07-10 15:12] LABS: Acetaminophen, Random <2.0 ug/mL (10.0-30.0); Alanine Aminotransfer (ALT/SGP 19 U/L (12-78); Albumin, Blood 3.8 g/dL (3.4-5.0); Alk Phos 61 U/L (50-136); Anion Gap 4 mmol/L (6-16); Aspartate Aminotrans (AST/SGOT 15 U/L (12-37); Bilirubin, Total 0.5 mg/dL (0.1-1.0); Blood Urea Nitrogen 15 mg/dL (8-24); Bun/Creatinine Ratio 23.4 (12.0-20.0); CO2, Blood 27 mmol/L (21-32); Calcium, Blood 9.2 mg/dL (8.5-10.1); Chloride, Blood 110 mmol/L (98-108); Creatinine, Blood 0.64 mg/dL (0.40-1.00); Glomerular Filtration Rate 106 (60-); Glucose, Blood 129 mg/dL (70-99); Potassium, Blood 3.8 mmol/L (3.5-5.5); Sodium, Blood 141 mmol/L (136-145); Total Protein, Blood 7.8 g/dL (6.4-8.2)
[2023-07-10 17:03] LABS: Source, Urine Clean Catch
[2023-07-10 17:23] LABS: Influenza A, PCR NEGATIVE (NEGATIVE); Influenza B, PCR NEGATIVE (NEGATIVE); Resp Syncytial Virus, PCR NEGATIVE (NEGATIVE); SARS-Cov-2 (COVID-19) PCR, MMC NEGATIVE (NEGATIVE)
[2023-07-10 17:36] LABS: Appearance, Urine Clear (Clear); Bilirubin, Urine Neg (Neg); Blood, Urine Neg (Neg); Color, Urine Yellow (P-Yellow); Glucose Qualitative, Urine Neg (Neg); Ketones, Urine Neg (Neg); Leukocyte Esterase, Urine Neg (Neg); Nitrite, Urine Neg (Neg); Protein, Urine Neg (Neg); Urobilinogen, Urine NORM (Normal)
[2023-07-10 17:57] LABS: U Amphetamine Screen Not Detected; U Barbituate Screen Not Detected; U Benzodiazapine Screen Not Detected; U Buprenorphine Screen Not Detected; U Cannabinoids Screen Not Detected; U Cocaine Screen Not Detected; U Methadone Screen Not Detected; U Methamphetamine Screen Not Detected; U Opiates Screen Not Detected; U Oxycodone Screen Not Detected; U Phencyclidine Screen Not Detected; U Propoxyphene Screen Not Detected
--- NOTE | 2023-07-18 14:09 | NUR ---
Case review requested. The principal is a 53 y/o female with a history of dementia, illicit narcotic abuse, and psychiatric disturbance. She is a high readmission risk. This is attributable to housing instability, drug abuse, and unsupervised wandering. The court appointed fiduciary agent reports that she has completed the benefit enrollment process on behalf of the principal, and is awaiting APS evaluation. The patient is now scheduled to be discharged to her male friends home for lodging accomodations. A better skilled nursing solution is apparently not achievable until her benefits are approved and active. The care coordination team reports that the guardian has had ample opportunity to engage in this exercise previously, but until recently appears to have been relatively stationary. The newly reported momentum, if validated, would be considered a sign of positive movement. If it is discovered however that these matriculation actions have not been taken, then APS should be informed of the deficiency, encouraged to challenge the fitness of the guardian in court, and then take proper steps to secure an alternative resource who will be more proactive, and intentional about safeguarding the interests of the protected person. With respect to the concerns expressed about holding practices; a drug/ alcohol hold may be initiated when a patient is intoxicated or presents as incapacitated, but the hold must be discontinued by the attending physician within no more than 48 hours, or when the patient is stabalized, if sooner. Thank you for this request. Vernon Garvey, PhD, RADHA
[2023-07-18 21:59] VITALS: BP 104/74
== END 2023-07-19 14:15 | disposition home or self-care (01) ==
LOC: ER 12:02 → EOR 12:03 → ER 12:03 → EOR 12:03 → ERHOLD 12:03 → EOR 07-16 22:34 → ERHOLD 07-16 22:34 → EOR 07-16 22:34 → ERHOLD 07-19 14:15
PROVIDERS: Physician Assistant; ADMIT Emergency Medicine
DX: F03.918 Unspecified dementia, unspecified severity, with other behavioral disturbance (principal); F43.10 Post-traumatic stress disorder, unspecified; F20.9 Schizophrenia, unspecified; Z87.891 Personal history of nicotine dependence; Z91.83 Wandering in diseases classified elsewhere; Z88.2 Allergy status to sulfonamides
CPT/HCPCS: 0241U; 36415; 80053; 81003; 81025; 85025; 86592; 96372; 99285-25; A9270; G0378; G0480

== ENCOUNTER 2023-09-09 12:15 | Emergency (ER) | payer OTHER ==
[~2023-09-09] VITALS: Ht 165.1 cm; Wt 63.5 kg
[2023-09-09 12:54] VITALS: BP 116/80
== END 2023-09-09 16:52 | disposition home or self-care (01) ==
LOC: ER 12:15
DX: F20.9 Schizophrenia, unspecified (principal); F03.90 Unspecified dementia, unspecified severity, without behavioral disturbance, psychotic disturbance, mood disturbance, and anxiety; F15.20 Other stimulant dependence, uncomplicated; Z88.2 Allergy status to sulfonamides; Z91.018 Allergy to other foods; Z87.891 Personal history of nicotine dependence
CPT/HCPCS: 99283

== ENCOUNTER 2023-09-09 18:53 | Emergency (ER) | payer OTHER ==
[~2023-09-09] VITALS: Ht 162.6 cm; Wt 54.4 kg
[2023-09-09 19:12] VITALS: BP 119/82
== END 2023-09-09 19:55 | disposition home or self-care (01) ==
LOC: ER 18:53
DX: F41.9 Anxiety disorder, unspecified (principal); F20.9 Schizophrenia, unspecified; F43.10 Post-traumatic stress disorder, unspecified; Z76.89 Persons encountering health services in other specified circumstances
CPT/HCPCS: 99283; A9270

== ENCOUNTER 2023-10-22 11:50 | Observation (INO) | payer OTHER ==
[~2023-10-22] VITALS: Ht 162.6 cm; Wt 40.8 kg
[2023-10-22 13:51] LABS: BASOPHILS ABSOLUTE AUTO 0.05 K/mm3 (0.00-0.23); BASOPHILS PERCENT AUTO 1 % (0-2); EOSINOPHILS ABSOLUTE AUTO 0.05 K/mm3 (0.00-0.68); EOSINOPHILS PERCENT AUTO 1 % (0-6); Hematocrit 37.7 % (33.0-51.0); Hemoglobin 13.3 g/dL (11.5-16.0); IMMATURE GRAN PERCENT AUTO 0 % (0-1); LYMPHOCYTES ABSOLUTE AUTO 1.92 K/mm3 (0.84-5.20); LYMPHOCYTES PERCENT AUTO 30 % (21-46); MONOCYTES ABSOLUTE AUTO 0.57 K/mm3 (0.16-1.47); MONOCYTES PERCENT AUTO 9 % (4-13); Mean Corpuscular HGB 29.4 pg (26.0-34.0); Mean Corpuscular HGB Conc 35.3 g/dL (31.5-36.5); Mean Corpuscular Volume 83 fL (80-100); Mean Platelet Volume 8.6 fL (9.1-12.4); NEUTROPHILS ABSOLUTE AUTO 3.77 K/mm3 (1.96-9.15); NEUTROPHILS PERCENT AUTO 59 % (41-73); Platelet Count 480 K/mm3 (150-400); RDW Standard Deviation 39.5 fL (35.1-46.3); Red Blood Cell Count 4.52 M/mm3 (3.80-5.20); White Blood Cell Count 6.36 K/mm3 (4.00-11.30)
[2023-10-22 14:13] LABS: Ethanol (Alcohol), Blood, Med <3 mg/dL; Salicylate <1.7 mg/dL (2.8-20.0)
[2023-10-22 14:17] LABS: Acetaminophen, Random <2.0 ug/mL (10.0-30.0); Alanine Aminotransfer (ALT/SGP 22 U/L (12-78); Albumin, Blood 4.2 g/dL (3.4-5.0); Alk Phos 76 U/L (50-136); Anion Gap 7 mmol/L (6-16); Aspartate Aminotrans (AST/SGOT 19 U/L (12-37); Bilirubin, Total 0.8 mg/dL (0.1-1.0); Blood Urea Nitrogen 34 mg/dL (8-24); Bun/Creatinine Ratio 47.8 (12.0-20.0); CO2, Blood 29 mmol/L (21-32); Calcium, Blood 9.8 mg/dL (8.5-10.1); Chloride, Blood 101 mmol/L (98-108); Creatinine, Blood 0.71 mg/dL (0.40-1.00); Globulin, Blood 4.1 g/dL (2.2-4.0); Glomerular Filtration Rate 102 (60-); Glucose, Blood 122 mg/dL (70-99); Potassium, Blood 3.6 mmol/L (3.5-5.5); Sodium, Blood 137 mmol/L (136-145); Total Protein, Blood 8.3 g/dL (6.4-8.2)
[2023-10-22] MEDS ORDERED: Tetanus and Diphtheria Toxoid 0.5 ML INJ IM ONE (18:05)
[2023-10-23 06:21] LABS: Source, Urine Clean Catch
[2023-10-23 06:23] LABS: Bilirubin, Urine Neg (Neg); Blood, Urine Neg (Neg); Glucose Qualitative, Urine Neg (Neg); Ketones, Urine Neg (Neg); Leukocyte Esterase, Urine 2+ (Neg); Nitrite, Urine Neg (Neg); Protein, Urine 1+ (Neg); Specific Gravity, Urine 1.025 (1.003-1.022); Urobilinogen, Urine 2+ (Normal)
[2023-10-23 06:26] LABS: Appearance, Urine Clear (Clear); Color, Urine Yellow (P-Yellow)
[2023-10-23 06:29] LABS: Bacteria Few /hpf; Red Blood Cells, Urine Not Seen /hpf (0-2); Squamous Epithelial Cells Few /hpf (Few)
[2023-10-23 06:37] LABS: U Amphetamine Screen Not Detected; U Barbituate Screen Not Detected; U Benzodiazapine Screen Not Detected; U Buprenorphine Screen Not Detected; U Cannabinoids Screen Not Detected; U Cocaine Screen Not Detected; U Methadone Screen Not Detected; U Methamphetamine Screen Not Detected; U Opiates Screen Not Detected; U Oxycodone Screen Not Detected; U Phencyclidine Screen Not Detected
[2023-10-23] MEDS ORDERED: Divalproex Sodium 125 MG CAP PO SCH (14:00)
[2023-10-23] MEDS ORDERED: QUEtiapine Fumarate 100 MG Tab PO SCH (21:00)
[2023-10-23 21:25] VITALS: BP 109/79
== END 2023-10-24 14:44 | disposition home or self-care (01) ==
LOC: ER 11:50 → EOR 11:51
PROVIDERS: Student in an Organized Health Care Education/Training Program; ADMIT Emergency Medicine
DX: F03.918 Unspecified dementia, unspecified severity, with other behavioral disturbance (principal); F19.10 Other psychoactive substance abuse, uncomplicated; Z87.891 Personal history of nicotine dependence; Z88.2 Allergy status to sulfonamides
CPT/HCPCS: 36415; 80053; 81001; 81025; 85025; 87086; 90471; 90714; 93005; 93010; 99285-25; A9270; G0378; G0480

== ENCOUNTER 2023-11-11 18:06 | Inpatient (IN) | payer OTHER ==
[~2023-11-11] VITALS: Ht 162.6 cm; Wt 54.9 kg
[2023-11-11 22:05] VITALS: BP 109/71
[2023-11-11] MEDS ORDERED: Ondansetron HCl 2 MG / ML 2ML Vial IV PRN (23:00)
[2023-11-11] MEDS ORDERED: NS 1,000 ML IV SCH (23:00)
[2023-11-11] MEDS ORDERED: Enoxaparin 40 MG/0.4 ML SYR SC SCH (23:00)
[2023-11-11] MEDS ORDERED: FLU VACC QS2023-24(6MOS UP)/PF 60 MCG/0.5 ML SYRINGE IM ONE (23:00)
[2023-11-12] MEDS ORDERED: CefTRIAXone Sodium 1,000 MG in NS 50 ML IV SCH (04:00)
--- NOTE | 2023-11-12 05:01 | NUR ---
SHIFT SUMMARY 53 YR F ADMITTED THIS SHIFT FROM THE ED. FULL CODE. PT HAS REFUSED ALL TREATMWNT AND ASSESSMENTS SINCE COMING TO MEDICAL FLOOR. SHE REFUSED LAB DRAW AND HAS NOT ALLOWED AN IV TO BE PUT IN. SHE HAS SLEPT SINCE ARRIVING TO THIS UNIT, AND HAS A 1:1 SITTER. HOSPITALIST WAS CALLED AND ADVISED OF REFUSAL OF MEDS AND TX. WILL CONTINUE TO MONITOR. BED IN LOW POSITION AND CALL LIGHT IN REACH.
[2023-11-12 07:38] VITALS: BP 107/80
--- NOTE | 2023-11-12 10:08 | NUR ---
DEPUTY LIU FROM [facility]S OFFICE CALLED TO SEE IF PT WAS HERE. VERIFIED DEPUTY LIU IS WITH THE [facility]'S DEPARTMENT WITH [place] AT [phone]. CALLED DEPUTY LIU BACK. DEPUTY LIU REPORTED PT SPOUSE IS CALLING MARTHA IN A MISSING PERSON. I INFORMED DEPUTY LIU PT IS AN INPATIENT AND IS CONFIDENTIAL DUE TO PT BEING ADMITTED UNTIL ADULT PROTECTIVE SERVICES CAN INVESTIGATE SAFETY WITH SPOUSE. ALSO INFORMED DEPUTY LIU PERSON CLAIMING TO BE SPOUSE MAY BE A BOYFRIEND. ALSO INFORMED DEPUTY LIU PT IS CONFIDENTIAL SO FAMILY AND FRIENDS CANNOT BE INFORMED OF HER LOCATION. DEPUTY ALEXA VAUGHAN.
[2023-11-12] MEDS ORDERED: OLANZapine 10 MG Vial IM PRN (15:50)
[2023-11-12] MEDS ORDERED: OLANZapine ODT 5 MG Tab MM PRN (15:50)
--- NOTE | 2023-11-12 16:12 | NUR ---
SHIFT SUMMARY: PATIENT REFUSING ALL CARE, INTERVENTIONS, AND PO INTAKE (DID EAT CRACKERS AND CHEESE AT ONE POINT TODAY). HAS BEEN AGITATED, WALKING UP AND DOWN HALLWAY, TRYING TO GET OUT THE DOOR. AFTER TWO ESCAPES, WAS PLACED ON [address] BENNETT AND DR. PALACIOS. USING BR INDEPENDENTLY. PHYSICAL THERAPY DISCONTINUED THEIR ORDER AFTER SEEING PATIENT WALKING IN KUMAR. A&O TO SELF ONLY, BEHAVIOR IS SULLEN, SHOUTS OFTEN.
--- NOTE | 2023-11-12 18:29 | NUR ---
Watched pt pace for about 15 minutes. Noted lots of jaw clenching and hypervigilant. pt flushed and looks uncomfortable. review with staff need for Im medications. Will follow up may need not only physc eval for dementia eval. Did not see one noted will follow up to see if past evaluation. pt high risk for injury or fall or harm to staff. Conside once meicated getting labs to see renal function and albumin. pt not wanting to eat. pt displaying acceletating diseale and increased frailty. Will see if guardian can address code status.
--- NOTE | 2023-11-13 04:22 | NUR ---
SHIFT SUMMARY 53 YR F ADMITTED ON 11/12/23. FULL CODE. NO CHANGES THIS SHIFT. PT IS STILL REFUSING ALL CARE, MEDS, AND LABS. SHE WENT TO BED SHORTLY AFTER SHIFT CHANGE @ 1900 AND HAS SLEPT FOR MOST OF THE NIGHT, ONLY GETTING UP TO USE THE BATHROOM. SHE DID NOT ENGAGE IN ANY CONVERSATION NOR DID SHE YELL OUT. NO C/O PAIN OR DISCOMFORT.
[2023-11-13 15:23] LABS: BASOPHILS ABSOLUTE AUTO 0.04 K/mm3 (0.00-0.23); BASOPHILS PERCENT AUTO 1 % (0-2); EOSINOPHILS ABSOLUTE AUTO 0.06 K/mm3 (0.00-0.68); EOSINOPHILS PERCENT AUTO 1 % (0-6); Hematocrit 39.7 % (33.0-51.0); Hemoglobin 12.8 g/dL (11.5-16.0); IMMATURE GRAN ABSOLUTE AUTO 0.01 K/mm3 (0.00-0.10); IMMATURE GRAN PERCENT AUTO 0 % (0-1); LYMPHOCYTES ABSOLUTE AUTO 2.11 K/mm3 (0.84-5.20); LYMPHOCYTES PERCENT AUTO 39 % (21-46); MONOCYTES ABSOLUTE AUTO 0.32 K/mm3 (0.16-1.47); MONOCYTES PERCENT AUTO 6 % (4-13); Mean Corpuscular HGB 28.9 pg (26.0-34.0); Mean Corpuscular HGB Conc 32.2 g/dL (31.5-36.5); Mean Corpuscular Volume 90 fL (80-100); Mean Platelet Volume 8.4 fL (9.1-12.4); NEUTROPHILS ABSOLUTE AUTO 2.89 K/mm3 (1.96-9.15); NEUTROPHILS PERCENT AUTO 53 % (41-73); Platelet Count 398 K/mm3 (150-400); RDW Coefficient Variation 13.6 % (11.7-14.2); Red Blood Cell Count 4.43 M/mm3 (3.80-5.20); White Blood Cell Count 5.43 K/mm3 (4.00-11.30)
[2023-11-13 15:44] VITALS: BP 110/73
[2023-11-13 15:51] LABS: Albumin, Blood 3.5 g/dL (3.4-5.0); Bilirubin, Total 0.4 mg/dL (0.1-1.0); Bun/Creatinine Ratio 21.3 (12.0-20.0); Calcium, Blood 9.4 mg/dL (8.5-10.1); Creatinine, Blood 0.66 mg/dL (0.40-1.00); Globulin, Blood 3.4 g/dL (2.2-4.0); Total Protein, Blood 6.9 g/dL (6.4-8.2)
--- NOTE | 2023-11-13 17:34 | NUR ---
SHIFT SUMMARY: NO ACUTE EVENTS. APPETITE IS VERY POOR. GAVE ZYPREXA IM THIS AFTERNOON D/T INCREASE IN AGITATION. ABLE TO GET BLOOD DRAWN ON THIRD ATTEMPT. AMBULATING IN HALLWAY, HAS 1:1 SITTER D/T 2 MD HOLD.
[2023-11-13 20:38] VITALS: BP 112/73
[2023-11-13] MEDS ORDERED: OLANZAPINE1024 PO (22:22)
[2023-11-13] MEDS ORDERED: QUETIAPINE FUMA25 MG PO (22:23)
[2023-11-14 02:30] VITALS: BP 81/53
--- NOTE | 2023-11-14 05:45 | NUR ---
SHIFT SUMMARY 53 YR F ADMITTED ON 11/12/23. FULL CODE. NO ACUTE CHANGES THIS SHIFT. PT STILL REFUSING ASSESSMENT, BUT HAS OTHERWISE BEEN COOPERATIVE. SHE ASKED FOR CRACKERS SEVERAL TIMES THROUGHOUT THE NIGHT AND OTHER THAN THAT SHE SLEPT ALL NIGHT. SHE DID NOT AMBULATE IN THE HALLWAY THIS SHIFT.
[2023-11-14 07:29] VITALS: BP 109/74
[2023-11-14 15:05] VITALS: BP 92/64
--- NOTE | 2023-11-14 16:25 | NUR ---
SHIFT SUMMARY: NO EVENTS OR CHANGES WITH THE PATIENT THROUGHOUT THE SHIFT. SHE BECOMES AGGITATED WHEN STAFF INTERACTS WITH HER; UNLESS SHE WANTS SOMETHING SHE IS PLEASANT AND CALM. SHE RESPONDS WITH NO WITH MOST INTERACTS AND QUESTIONS WITH STAFF. SHE IS REFUSING OF MOST CARE. SHE WILL SPORADICALLY GET UP OUT OF BED AND DU DOWN THE HALLWAY TO THE EXIT DOORS AND WALK BACK TO HER ROOM. SHE IS CURRENTLY IN BED RESTING, EYES OPEN, RESPIRATIONS ARE EVEN AND UNLABORED. NO SIGNS OR SYMPTOMS OF DISTRESS. PLAN OF CARE ONGOING.
[2023-11-14 20:02] VITALS: BP 92/71
--- NOTE | 2023-11-15 00:26 | NUR ---
PT HAD A SNACK AND IS RESTING AT THIS TIME. CONTINUES TO REFUSE ALL ASSESSMENTS. WILL CONTINUE TO MONITOR.
[2023-11-15 02:08] VITALS: BP 87/62
--- NOTE | 2023-11-15 05:16 | NUR ---
SHIFT SUMMARY PT HAS BEEN IN BED ALL SHIFT SO FAR. SHE REFUSED MULTIPLE ATTEMPTS FOR ASSESSMENT ONLY ALLOWING VS TO BE DONE. SHE ATE A SNACK AND HAS BEEN RESTING QUIETLY. WILL CONT TO MONITOR AND PROVIDE CARE T/O SHIFT.
[2023-11-15 07:19] VITALS: BP 91/63
[2023-11-15 15:18] VITALS: BP 104/67
--- NOTE | 2023-11-15 17:00 | NUR ---
SHIFT SUMMARY: NO EVENTS OR CHANGES WITH THE PATIENT DURING THE SHIFT. SHE CONTINUES TO REFUSE CARE; I WOULD SAY MORE RESISTANCE TODAY THAN YESTERDAY. SHE HASN'T MORE IN BED MOST OF THE DAY AND ONLY HAS BEEN UP A FEW TIMES TO QUICKLY PACE DOWN TO THE KUMAR AND BACK. SHE VOIDED ONCE TODAY; HASN'T BEEN DRINKING OR EATING TODAY EITHER. SHE IS IN BED, RESPIRATIONS EVEN AND UNLABORED; 1:1 SITTER, NO SIGNS OR SYMPTOMS OF DISTRESS.
--- NOTE | 2023-11-16 05:05 | NUR ---
SHIFT SUMMARY PT REFUSED SHIFT ASSESSMENT AND VS AT START OF SHIFT. PT LAYING IN BED AND APPEARED MORE AGGITATED WHEN STAFF ATTEMPTED TO APPROACH PT. PT STAYED IN BE T/O NIGHT. RESPIRATIONS EVEN AND UNLABORED. DECLINED ALL OFFERS FOR SNACKS OR WATER AT START OF SHIFT. 1:1 SITTER. BED IN LOWEST POSITION AND CALL LIGHT IN REACH.
[2023-11-16 05:11] VITALS: BP 100/73
[2023-11-16 07:13] VITALS: BP 89/60
[2023-11-16 16:10] VITALS: BP 99/83
--- NOTE | 2023-11-16 16:49 | NUR ---
SHIFT SUMMARY PATIENT AGITATED THIS MORNING. PATIENT REFUSING TO ALLOW STAFF TO DO A FULL ASSESSMENT. PATIENT REFUSING TO EAT. PATIENT REPEATEDLY GETTING UP OUT OF BED AND WALKING IN THE KUMAR. PATIENT RETURNING BACK TO HER ROOM WHEN DIRECTED. PATIENT ATTEMPTED TO LEAVE SECURED UNIT BY PULLING ON MAGNET ON DOOR AND GETTING IT TO OPEN. PATIENT MEDICATED WITH IM ZYPREXA. PATIENT PULLED UP SLEEVE AND ALLOWED STAFF TO GIVE INJECTION. AFTER MEDICATED. PATIENT CONTINUED TO BE RESTLESS AT TIMES AND WALK HALLS. PATIENT EATING AND DRINKING SNACK TYPE FOODS AFTER BEING MEDICATED. PATIENT NEEDING REMINDED TO USE COMMODE. PATIENT EASILY AGITATED WHEN ASKED IF SHE NEEDED HER ATTENDS CHANGED.
[2023-11-16 19:59] VITALS: BP 98/70
[2023-11-17 03:49] VITALS: BP 99/71
--- NOTE | 2023-11-17 03:56 | NUR ---
SHIFT SUMMARY PT REFUSING DIRECT CARE. WILL NOT ALLOW ASSESSMENTS OR ASSISTANCE. SLEEPING PEACEFULLY WHEN THIS RN IS MAKING ROUNDS. CONTINUING TO MONITOR FOR ANY CHANGES IN LOC.
[2023-11-17 07:37] VITALS: BP 92/68
[2023-11-17 15:49] VITALS: BP 83/61
--- NOTE | 2023-11-17 18:33 | NUR ---
SHIFT SUMMARY PATIENT CONTINUES TO BE RESTLESS AT TIMES AND WALKING THE HALLS PERIODICALLY. PATIENT GIVEN 1 DOSE OF ZYPREXA TODAY. PATIENT RELUCTANTLY DID HER OWN WIPE BATH WHILE ON COMMODE. PATIENT REFUSING TO ALLOW STAFF TO ASSIST. PATIENT CONTINUES TO EAT SNACK FOODS. PATIENT DRINKING ENSURE IN PLACE OF MEALS. ADAPT IN TO SEE PATIENT.
[2023-11-17 22:06] VITALS: BP 101/62
--- NOTE | 2023-11-18 04:30 | NUR ---
SHIFT SUMMARY PT REFUSING DIRECT CARE. WILL NOT ALLOW ASSESSMENTS OR ASSISTANCE. SHE DID ALLOW VITALS TO BE TAKEN BY THIS RN. REQUESTED FOR BEDSIDE TABLE TO NOT BE PLACED CLOSE TO BED. SLEEPING PEACEFULLY WHEN THIS RN IS MAKING ROUNDS. CONTINUING TO MONITOR FOR ANY CHANGES IN LOC. PT REFUSED MORNING VITALS.
--- NOTE | 2023-11-18 04:35 | NUR ---
SHIFT SUMMARY PT FEELING MUCH BETTER AFTER MOSTLY UNREMARKABLE LOWER GI SCOPE DURING DAY SHIFT. PT LOOKING FORWARD TO BEING DC'D IN AM. HE HAS SLEPT PEACEFULLY THROUGH NIGHT WITH MINIMAL DISTURBANCES. PT HAS MECHANICAL VALVE IN PLACE. CONTINUING TO MONITOR FOR CHANGES IN LOC. PT HAS BEEN PLEASANT AND COOPERATIVE WITH CARE. APPROX 0024, PT SATING AT 85%, INCREASED O2 TO 3L, AND NOW SATING AT 92%.
[2023-11-18 07:45] VITALS: BP 97/61
[2023-11-18 15:02] VITALS: BP 90/62
--- NOTE | 2023-11-18 18:03 | NUR ---
SHIFT SUMMARY PATIENT ALERT AND INTERACTIVE. REFUSING TO ALLOW STAFF TO DO A COMPLETE ASSESSMENT. PATIENT UP TO COMMODE TO VOID. PATIENT SHOWERED. PATIENT CONTINUES TO HAVE PERIODS OF RESTLESSNESS. PATIENT WALKING IN THE HALLS AT TIMES. PATIENT CONTINUES TO NOT EAT MEALS BUT EATING SNACK FOODS AND DRINKING ENSURES.
[2023-11-18 20:25] VITALS: BP 127/97
[2023-11-19 02:27] VITALS: BP 102/67
--- NOTE | 2023-11-19 04:06 | NUR ---
SHIFT SUMMARY ADMITTED FOR DEMENTIA. FULL CODE. PLAN IS FOR PLACEMENT INPATIENT PSYCH. ON RA, REGULAR DIET. A&O TO SELF. SHE IS IMPULSIVE AND WANDERS. SHE REFUSES ASSESSMENTS AND CARE AT TIMES. SHE DOES EAT SNACKS FREELY, ALTHOUGH SHE IS MORE HESITANT TO EAT FULL MEALS. IM ZYPREXA GIVEN THIS SHIFT FOR AGITATION.
[2023-11-19 07:54] VITALS: BP 93/67
[2023-11-19 15:29] VITALS: BP 90/78
--- NOTE | 2023-11-19 17:29 | NUR ---
PATIENT SLEPT MOST OF THIS SHIFT. REFUSING CARE AT TIMES, VERY WITHDRAWN. SWITCHED PATIENT TO FINGER FOOD DIET SHE WILL NOT EAT TRAYS, BUT WILL EAT SNACKS. UP INDEPENDENTLY TO BSC. AWAITING PLACEMENT. NO NEW CONCERNS THIS SHIFT.
[2023-11-19 21:41] VITALS: BP 102/70
--- NOTE | 2023-11-20 04:27 | NUR ---
SHIFT SUMMARY. PATIENT IS ALERT TO SELF. PATIET YELLING WHEN "TALKING", PATINET REFUSING MOST OF CARE. PATIENT AINT SOME CRACKERS AND HAD STARRY THIS SHIFT. PATIENT HAS A 1:1 SITTER. PATIENT NEEDS REMNINDING TO USE THE BATHROOM. PATIENT HAS SLEPT T/O MOST OF NIGHT. PATIENT IS ABLE TO MOVE FREELLY IN HER BED. PATIENT IS A CONFIDENTIAL PATIENT CURRENTLY AWAITING PLACEMENT. BED IS LOCKED IN THE LOWEST POSITION WITH CALL LIGHT IN REACH. NO S/S OF DISTRESS. CARE IS ONGOING.
[2023-11-20 05:19] VITALS: BP 103/72
[2023-11-20 07:32] VITALS: BP 93/61
--- NOTE | 2023-11-20 12:45 | NUR ---
MARTHA HAS REFUSED ALL ASSESSMENTS THUS FAR BY THIS REMEDIAL PROJECT MANAGER. WHEN ATTEMPTING TO SIT DOWN WITH THIS PATIENT TO TALK WITH HER, SHE STATES, "I DONT WANT TO TALK RIGHT NOW". 1:1 SITTER PRESENT. PATIENT DID GET UP AND WALK DOWN THE KUMAR LATER AFTER LUNCH.
[2023-11-20 15:37] VITALS: BP 88/62
--- NOTE | 2023-11-20 17:11 | NUR ---
SHIFT SUMMARY PATIENT REFUSES TO TALK TO THIS PERSONNEL ANALYST OR ALLOW ASSESSMENTS. SHE ALWAYS STATES "I'M NOT TALKING TO YOU RIGHT NOW." BED IN LOW POSITION, CALL LIGHT IN REACH. PATIENT MAKES NEEDS KNOWN TO SITTER AND UP WALKING KUMAR AT LEAST ONCE THIS SHIFT WITH SITTER.WILL CONTINUE TO MONITOR.
[2023-11-20 20:24] VITALS: BP 107/77
[2023-11-21 02:45] VITALS: BP 108/84
--- NOTE | 2023-11-21 07:32 | NUR ---
SHIFT SUMMARY. PATIENT IS ALERT TO SELF. PATIENT UP TO BSC WITH A SBA. PATIENT REFUSED THIS RN TO DO A SHIFT ASSESSMENT "NO, NO, NO, I DONT WANT TO". PATIENT ASKED FOR SOME SNACKS AND A STARRY, THIS RN ASKED PATIENT IF THERE WAS ANYTHING ELSE I COULD GET HER, PATIENT RESPONDED WITH NO, THANK YOU. PATIENT APPEARED A LITTLE LESS RESISTIVE AT TIMES TONIGHT. PATIENT ALLOWED THIS RN TO OBTAIN VITALS WITH OUT ISSUES. PATIENT SLEPT WELL T/O NIGHT WITH RESPIRATIONS EQUAL AND UNLABORED. REPORT GIVEN TO DAYSHIFT NURSE.
[2023-11-21 07:48] VITALS: BP 100/65
[2023-11-21] MEDS ORDERED: Ondansetron 4 MG SoluTab SL PRN (08:25)
--- NOTE | 2023-11-21 09:31 | NUR ---
PATIENT VOMITED TWICE THIS AM, PATIENT WITH NO IV AND REFUSIING IV. DR BAPTISTE ORDERED ZOFRAN 4MG OTD Q6H PRN N/V AND NO IV ACCESS ORDER AT THIS TIME. PATIENT REFUSED ZOFRAN WHEN OFFERED, DR ARNETT NOTIFIED DURING HIS AM ROUNDS OF PATIENT REFUSAL. NO NEW ORDERS AT THIS TIME. PATIENT IS UP WALKING HALLWAY MULTIPLE TIMES THIS AM AND HAD A HARD STOOL AFTER LAST VOMITING EPISODE.
[2023-11-21 15:14] VITALS: BP 98/65
--- NOTE | 2023-11-21 17:01 | NUR ---
SHIFT SUMMARY PATIENT REFUSING MOST CARE THIS SHIFT. SHE ALLOWED CISCO ENGINEER TO GATHER VITAL SIGNS AND BRING HER SNACKS. SHE REFUSED HER ASSESSMENT AND WHEN ASKED HOW SHE IS DOING, SHE JUST LOOKS AT ME AND KEEPS ON WALKING OR LOOKS AWAY WHEN LAYING DOWN. SHE IS UP WALKING HALLS SEVERAL TIMES PER HOUR AT TIMES TODAY. BED IN LOW POSITION, CALL LIGHT IN REACH, SITTER PRESENT IN HALLWAY FOR HIGH RISK EXIT AND PATIENT RISK TO SELF. WILL CONTINUE TO MONITOR.
[2023-11-21 20:16] VITALS: BP 101/67
[2023-11-22 03:36] VITALS: BP 87/54
--- NOTE | 2023-11-22 05:00 | NUR ---
SHIFT SUMMARY MARTHA WAS ALERT AT START OF SHIFT. PT REFUSED TO INTERACT WITH ME STATING "I DON'T WANT TO TALK TO YOU, DON'T TOUCH ME" PER REPORT THIS IS NOT UNUSUAL FOR THIS PT. PT HAD AN UNEVENTFUL SHIFT, AND APPEARED TO SLEEP THROUGH THE NIGHT. PT WAS SUPERVISED BY 1:1 SITTER T/O SHIFT. ASIDE FROM REFUSING CARE PT HAD NO OTHER BEHAVIORS THIS SHIFT. PT RESTING IN BED AT A LOW POSITION WITH CALL LIGHT IN REACH. PT HAD ONE EPISODE OF EMESIS AT 0330, SHE STATES THAT SHE DOES NOT FEEL SICK TO HER STOMACHE OR NAUSEOUS AFTER, AND DENIES NEED FOR MEDICATION. PT DID BECOME SOMEWHAT LESS UPSET WITH MY PRESENCE IN THE ROOM TOWARDS THE RETAIL WAREHOUSE SUPERVISOR, BUT CONTINUED TO DENY NEEDS AND REFUSE INTERVENTIONS.
[2023-11-22 07:08] VITALS: BP 102/69
--- NOTE | 2023-11-22 11:35 | NUR ---
REFUSAL OF CARE ATTEMPTED TO ASSESS PT THIS AM, BUT PT REFUSED. PT STATED, "I DON'T WANT TO TALK." THIS NURSE UNABLE TO ASSESS PT COMPREHENSIVELY.
[2023-11-22 16:44] VITALS: BP 99/71
--- NOTE | 2023-11-22 17:33 | NUR ---
SHIFT SUMMARY PT REFUSED TO ALLOW THIS NURSE TO DO A COMPREHENSIVE ASSESSMENT, SEE PREVIOUS NOTE. PT DID NOT C/O N/V AND OR PAIN. 1:1 SITTER PRESENT T/O SHIFT. CALL LIGHT WITHIN REACH AND PT ABLE TO MAKE NEEDS KNOWN.
[2023-11-22 19:41] VITALS: BP 97/62
[2023-11-23 03:17] VITALS: BP 102/77
--- NOTE | 2023-11-23 05:09 | NUR ---
SHIFT SUMMARY PT SLEPT ON AND OFF. ONE EVENT OF EMESIS, PT DENIED NAUSEA, JUST REQUESTED SPRITE. SEARCH LEAD NOTED EMESIS NON SHIRT BUT PT REFUSED TO CHANGE SHIRT AT THIS TIME. PT RESISENT TO CARES OR ASSESMENT. SITTER REMAINS IN LINE OF VIEW AT ALL TIMES FOR SAFETY.
[2023-11-23 07:41] VITALS: BP 101/66
[2023-11-23 15:54] VITALS: BP 91/57
--- NOTE | 2023-11-23 16:40 | NUR ---
no changes this shift. pt refused assessment. she is alert and orientation is unknown because she refuses to talk to me. she has been pacing the stokc for majority of the shift and is very irritated with staff because we are not allowing her to leave the scu due to her running to the elevators yesterday. she is still requiring a sitter. she has attempted to sneak out of the scu multiple times this shift.
[2023-11-23 20:25] VITALS: BP 106/79
[2023-11-24 03:19] VITALS: BP 105/71
[2023-11-24 07:15] VITALS: BP 98/67
[2023-11-24 15:46] VITALS: BP 95/66
--- NOTE | 2023-11-24 17:52 | NUR ---
NO CHANGES THIS SHIFT. PT REFUSING MEALS WILL EAT OCCASIONAL CRACKER, PEANUT BUTTER, AND ENSURE. INDEPENDENTLY WALKING IN HALLWAY. 1:1 SITTER CONTINUED.
[2023-11-24 19:47] VITALS: BP 112/69
[2023-11-25 03:24] VITALS: BP 95/68
--- NOTE | 2023-11-25 06:54 | NUR ---
SHIFT SUMMARY PT IRRITABLEL WITH STAFF. REFUSING FULL BODY ASSESSMNET BUT DID GET A SET OF VITALS AND LISTEN TO HEART AND LUNGS. NO EVENTS OVERNIGHT. PT LAYED IN BED MAJORITY OF SHIFT, UP TO BEDSIDE COMMODE INDEPENDENTLY. FLIGHT RISK, BUT NOT THIS SHIFT.
[2023-11-25 07:24] VITALS: BP 92/63
[2023-11-25 15:09] VITALS: BP 100/67
--- NOTE | 2023-11-25 16:16 | NUR ---
SHIFT SUMMARY: PATIENT REFUSED ASSESSMENT AND ANSWER QUESTIONS. PATIENT IS ALERT, SLEPT ON AND OFF T/O SHIFT. PATIENT REFUSED MEALS, LIQUID INTAKE, AND SHOWER, BUT ALLOWED DISPOSAL MAN TO HAVE HER VITALS TAKEN THIS SHIFT. PATIENT CONTINENCE OF BLADDER AND USES BSC. PATIENT HAS 1:1 SITTER OUTSIDE ROOM. NO IV ACCESS PER ORDER.
[2023-11-25 19:38] VITALS: BP 98/65
[2023-11-26 03:13] VITALS: BP 99/74
--- NOTE | 2023-11-26 05:06 | NUR ---
SHIFT SUMMARY: ASSUMED CARE FOR PT @ 0130. PT IN BED SLEEPING FOR THE REMAINDER OF THE MORNING. NO ACUTE CHANGES OR COMPLICATIONS. BED IN LOW POSITION, CALL LIGHT WITHIN REACH. WILL CONTINUE TO MONITOR.
[2023-11-26 07:12] VITALS: BP 94/70
[2023-11-26 15:26] VITALS: BP 88/68
--- NOTE | 2023-11-26 16:50 | NUR ---
SHIFT SUMMARY: NO NEW ACUTE CHANGES IN PATIENT CONDITIONED. PATIENT IS ALERT, CONTINUES REFUSING ASSESSMENT AND ANSWER TO QUESTIONS, WHEN ASKED. PATIENT SLEPT ON AND OFF T/O SHIFT, AMBULATES IN HALLWAYS c CLOSED SUPERVISION D/T TRIED ESCAPING THE UNIT THAT HAPPENED 4 DAYS AGO. PATIENT ALLOWED DIE FILER TO HAVE HER VITALS TAKEN, SHOWERED AND LINEN CHANGED THIS SHIFT. PATIENT STILL NOT EATING MEALS, ONLY DRINKING ENSURE AND SPRITE THIS SHIFT. PATIENT HAS 1:1 SITTER OUTSIDE HER ROOM FOR SAFETY. CALL LIGHT IN REACH.
[2023-11-26 19:44] VITALS: BP 99/70
[2023-11-27 02:36] VITALS: BP 104/68
--- NOTE | 2023-11-27 03:59 | NUR ---
SHIFT SUMMARY PT. CONTINUES TO BE OBSERVED BY 1:1 SITTER. PT. REFUSED SHIFT ASSESSMENT AND A SNACK OFFERED BY THIS NURSE. PT. ALLOWED TO GET VS TAKEN ON THIS SHIFT, PER CANDY FEEDER REPORT. BY THIS NURSE, PT. WAS EDUCATED ON PRN ZYPREXA WHICH IS AVAILABLE PO OR IM. PT. STATED 'I DON'T NEED THAT." PT. HAS BEEN RESTING IN BED T/O THIS SHIFT. NO ACUTE DISTRESS NOTED OR REPORTED. BED AT THE LOWEST POSITION, CALL LIGHT IN REACH. WILL HAND OFF TO THE INCOMING SHIFT NURSE.
[2023-11-27 07:31] VITALS: BP 96/66
[2023-11-27 15:19] VITALS: BP 101/67
--- NOTE | 2023-11-27 16:16 | NUR ---
SHIFT SUMMARY: PATIENT ALERT, SLIGHTLY ANXIOUS, AND EASILY REDIRECTABLE. PATIENT ALLOWED THIS RN TO AUSCULTATE HER HEART, ABDOMEN AND LUNGS, BUT CONTINUES TO REFUSED SKIN ASSESSMENT AND ANSWER TO QUESTIONS. PATIENT ALLOWED ANIMAL STUNNER TO HAVE HER VITALS TAKEN THIS SHIFT. PATIENT REFUSING MEALS WILL EAT OCCASIONAL CRACKERS AND DRINK SANDRA MIEST. PATIENT INDEPENDENT IN ROOM/HALLWAY, 1:1 SITTER OUTSIDE HER ROOM FOR SAFETY. NO IV ACCESS PER ORDER. CALL LIGHT IN REACH.
[2023-11-27 19:45] VITALS: BP 95/65
--- NOTE | 2023-11-28 03:22 | NUR ---
SHIFT SUMMARY PT. CONTINUES ON 1:1 OBSERVATION WITH A SITTER. PT.REFUSED NSG.SHIFT ASSESSMENT. PT. HAS BEEN RESTING IN BED T/O THIS SHIFT, RR EVEN, UNLABORED. SNACKS OFFERED,INTAKE:0 T/O THE NIGHT. NO ACUTE DISTRESS NOTED OR REPORTED DURING THIS SHIFT. BED AT THE LOWEST POSITION, CALL LIGHT IN REACH. WILL HAND OFF TO INCOMING SHIFT NURSE.
[2023-11-28 05:05] VITALS: BP 101/73
[2023-11-28 07:43] VITALS: BP 102/65
--- NOTE | 2023-11-28 08:00 | NUR ---
PT DISSAGREEABLE, REFUSING ASSESSMENT. I WAS ABLE TO LISTEN TO LUNGS, CLEAR T/O AND HEART, REG, NO MURMUR NOTED. NO TELE. FURTHER ASSESSMENT REFUSED. STATES NO, NO, NO. SHE HAS BEEN UP WALKING HALLS CHECKING BOTH DOORS, EACH END OF HALLWAY. I ASKED IF SHE FEELING ANX OR IN PAIN. NO NO NO. ATTEMPTED TO ASK IF ANYTHING ELSE COULD BE DONE. REFUSED. PT CONTINUES TO PACE HALLWAY. BED INLOW POSITION, CALL LITE IN REACH, CALLS OUT OR WALKS TO DOOR FOR NEEDS.
[2023-11-28 15:41] VITALS: BP 90/63
--- NOTE | 2023-11-28 18:45 | NUR ---
PT LABILE TODAY. ALLOWED MINIMAL ASSESSMENT THIS AM. LUNGS AND HEART. REFUSED FURTHER. ASKED IF NEEDS EITHER PAIN OR ANX MEDS. FLAT FIRM NO NO NO ANSWERS . HAS BEEN WALKING HALLS, TRYING BOTH DOORS. DID MAKE IT OUT FRONT FOR A MOMENT TODAY, BUT WAS REDIRECABLE BACK TO ROOM. NO OTHER NEW CONCERNS NOTED. BED IN LOW POSITION, CALL LITE IN REACH, SITTER REPORTS IF NEEDS.
[2023-11-28 19:45] VITALS: BP 106/79
--- NOTE | 2023-11-29 03:31 | NUR ---
SHIFT SUMMARY PT.CONTINUES TO BE OBSERVED 1:1 WITH A SITTER. PT. REFUSED THE NSG.SHIFT ASSESSMENT, STATING " I DON'T WANT THAT." THIS NURSE OFFERED SNACKS AND FLUIDS TO THE PT. WHICH THE PT. REFUSED. PT. HAS BEEN RESTING IN HER BED T/O THIS SHIFT, NO ACUTE DISTRESS NOTED OR REPORTED. CALL LIGHT WITHIN REACH, BED AT THE LOWEST POSITION. WILL HAND OFF TO INCOMING NURSE.
[2023-11-29 07:11] VITALS: BP 89/72
[2023-11-29 16:01] VITALS: BP 89/78
--- NOTE | 2023-11-29 17:09 | NUR ---
SHIFT SUMMARY: PATIENT HAS BEEN PACING FROM HER ROOM DOWN THE KUMAR TO THE LOCKED DOUBLE DOORS SINCE SHIFT CHANGES. SHE DID GET OF THE UNIT TODAY AND HAD TO BE REDIRECTED BACK BY TRAFFIC SUPERVISOR. SHE CONTINUES TO REFUSE CARE AND SAYS NO TO ALMOST ALL STAFF INTERACTION. SHE IN CURRENTLY IN HER ROOM; IN BED, NO SIGNS OR SYMPTOMS OF DISTRESS. AWAITING PLACEMENT; PLAN OF CARE ONGOING.
--- NOTE | 2023-11-30 04:05 | NUR ---
SHIFT SUMMARY PT. CONTINUES TO BE OBSERVED 1:1 WITH A SITTER. AT THE BEGINNING OF THIS SHIFT, PT. WAS PACING ON THE HALLWAY, BUT SOON RETURNED TO HER ROOM. PT. TURNS AROUND AND STATES "NO!", REPEATEDLY, WHEN THIS NURSE ASKED TO ASSESS THE PT. WELL OFFERED SNACKS AND FLUIDS. T/O THIS SHIFT, P/T HAS BEEN RESTING IN BED. NO ACUTE EVENTS NOTED OR REPORTED. BED AT THE LOWEST POSITION, CALL LIGHT WITHIN REACH. WILL HAND OFF TO THE INCOMING SHIFT NURSE.
[2023-11-30 07:27] VITALS: BP 108/90
[2023-11-30 15:57] VITALS: BP 121/80
--- NOTE | 2023-11-30 17:23 | NUR ---
SHIFT SUMMARY: NO EVENTS OR CHANGES WITH THE PATIENT THROUGHOUT THE SHIFT. SHE CONTINUES TO REFUSE CARE SAY "NO" TO ALL STAFF INTERACTION AND PACING FROM ROOM TO UNIT DOUBLE DOORS. SHE IS CURRENTLY IN BED, AWAKE, NO SIGNS OR SYMPTOMS OF DISTRESS. PLAN OF CARE ONGOING.
--- NOTE | 2023-12-01 05:23 | NUR ---
SHIFT SUMMARY NOC PT A/O TO SELF. REFUSING ALL CARE. PT HAS 1:1 SITTER DUE TO HIGH ELOPEMENT RISK. PT ON GUARDIAN HOLD. PT HAS BEEN ACCEPTED AT [facility] AND IS AWAITING [facility] MEDICAID APPROVAL. PT CURRENTLY RESTING WITH SITTER IN PLACE, BED IN LOWEST POSITION, AND CALL LIGHT WITHIN REACH.
[2023-12-01 07:13] VITALS: BP 100/68
[2023-12-01] MEDS ORDERED: OLANZapine 10 MG Vial IM PRN (14:00)
[2023-12-01 15:02] VITALS: BP 123/104
--- NOTE | 2023-12-01 16:44 | NUR ---
SHIFT SUMMARY MS MAGAÑA REFUSED TO ALLOW HEALTH SERVICES INFORMATION SPECIALIST TODAY. SITTER WITH HER, SHE HAS BEEN PACING THE FLOORS MOST OF THE SHIFT. SHE HAS HAD VISUAL AND AUDITORY HALLUCINATIONS. SHE WAS CALM AND INTERACTIVE AT THE BEGINNING OF THE SHIFT BUT THEN STARTED PACING THE FLOORS. SHE HAS EATEN CRACKERS AND SODA, REFUSED THE SUPPLIMENTS AND MOST OF HER MEALS SO FAR TODAY.
[2023-12-01] MEDS ORDERED: OLANZapine ODT 5 MG Tab MM PRN (18:00)
[2023-12-01] MEDS ORDERED: OLANZapine ODT 5 MG Tab MM SCH (21:00)
--- NOTE | 2023-12-02 05:32 | NUR ---
SHIFT SUMMARY NOC PT A/O TO SELF. REFUSING MOST CARE, PT CONVINCED TO CLEAN SELF WITH WIPES. PT ALSO REQUESTED SNACKS. PT HAS 1:1 SITTER DUE TO HIGH ELOPEMENT RISK. PT ON GUARDIAN HOLD. GUARDIAN AND APS LOOKING FOR LTC PLACEMENT PENDING MEDICAID APPROVAL. PT CURRENTLY RESTING WITH SITTER IN PLACE, BED IN LOWEST POSITION, AND CALL LIGHT WITHIN REACH.
[2023-12-02 07:21] VITALS: BP 99/65
--- NOTE | 2023-12-02 14:13 | NUR ---
PATIENT UP AND AGITATED THIS AM, REFUSING EVERYTHING INCLUDING FOOD. AGITATION INCREASED AT 1030. ZYPREXA IM GIVEN IN LEFT DELTOID WITH MARTHA RINALDI RN PRESENT AND KEVIN RENTERIA FOR SAFETY.
--- NOTE | 2023-12-02 15:03 | NUR ---
PATIENT UP PACING UNIT AGAIN, INCREASING IN AGITATION. WHEN THIS PARTITION MAKING MACHINE OPERATOR GOT ZYPREXA TO PREPARE AT 1457, SHE SAYS "WHATS THAT" I TOLDER HER IT IS ZYPREXA. SHE SAYS IM NOT DUE FOR ANY MEDS" SHE THEN YELLS OUT WHILE IN HALLWAY "I DONT NEED NO FUCKING MEDS". PATIENT VERBALLY DECLINING MED BUT FOLLOWED INSTRUCTION TO GO INTO ROOM AND STOOD TO TAKE ZYPREXA IM IN THE DELTOID. SHE CONTINUES TO PACE THE HALLS AT THIS TIME.
[2023-12-02 15:34] VITALS: BP 88/57
--- NOTE | 2023-12-02 17:40 | NUR ---
SHIFT SUMMARY PATIENT WITH AGITATION AND UP PACING HALLS, STARING DOWN DRY WALL SPRAYER AND OTHER STAFF INTERMITTENTLY TODAY. MEDICATED PER EMAR. SHE DOES REQUEST SNACKS SUCH CRACKERS AND PEANUT BUTTER AND PEPSI. BED IN LOW POSITION, 1:1 SITTER PRESENT WITH PATIENT, WILL CONTINUE TO MONITOR.
--- NOTE | 2023-12-03 04:26 | NUR ---
SHIFT SUMMARY PATIENT HAD NO ACUTE CHANGES. ALERT TO SELF AND INDEPENDENT IN ROOM AND HALLWAY. PACES BACK AND FORTH IN HALLWAY AND NEXT REST IN BED REPEATING A FEW TIMES. REFUSED VITALS, MEDICATION, CARE, AND ASSESSMENT. HAD MULTIPLE SNACKS T/O SHIFT. DENIES CHEST PAIN, SOB, AND N/V. NO IV ACCESS. SITTER 1:1. CALL LIGHT IN REACH. BED IN LOWEST POSITION. WILL CONTINUE TO MONITOR UNTIL DAY SHIFT NURSE ASSUMES CARE.
[2023-12-03] MEDS ORDERED: OLANZapine ODT 5 MG Tab MM PRN (15:40)
[2023-12-03] MEDS ORDERED: OLANZapine 10 MG Vial IM PRN ×2 (15:40)
[2023-12-03 16:04] VITALS: BP 97/76
--- NOTE | 2023-12-03 17:04 | NUR ---
SHIFT SUMMARY PATIENT WITH NO CHANGES TODAY. SHE CONTINUES TO WALK THE HALLWAY. THIS AFTERNOON AFTER WALKING MOSTLY FOR A COUPLE HOURS, SHE WAS INCREASING PACE AND APPEARED MORE AGITATED. HOUSEHOLD APPLIANCE REPAIRER GAVE 5MG ZYPREXA IM TO PATIENT IN HER ROOM. PATIENT THEN TOOK A NAP ABOUT AN HOUR LATER FOR A LITTLE OVER AN HOUR. BED IN LOW POSITION,1:1 SITTER PRESENT.
[2023-12-03 19:30] VITALS: BP 94/70
[2023-12-03] MEDS ORDERED: OLANZapine ODT 10 MG Tab MM SCH (21:00)
[2023-12-04 03:54] VITALS: BP 93/59
--- NOTE | 2023-12-04 04:35 | NUR ---
SHIFT SUMMARY PATIENT HAD NO ACUTE CHANGES. ALERT TO SELF AND INDEPENDENT IN ROOM AND HALLWAY. SITTER 1:1. REFUSED SCHEDULE ZYPREXA ODT 10 MG. PATIENT REMINDED IF REFUSING PO MED THAN IM ZYPREXA 10 MG WOULD BE GIVEN. SHE AGREED TO IM ZYPREXA. REFUSED ASSESSMENT BUT ALLOWED A SET OF VITALS. DENIES CHEST PAIN, SOB, AND N/V. PACED HALLWAY T/O FIRST PART OF SHIFT. SLEPT ON/OFF. NO IV ACCESS. CALL LIGHT IN REACH. BED IN LOWEST POSITION. WILL CONTINUE TO MONITOR UNTIL DAY SHIFT NURSE ASSUMES CARE.
[2023-12-04 08:11] VITALS: BP 107/70
[2023-12-04 16:02] VITALS: BP 102/83
--- NOTE | 2023-12-04 16:22 | NUR ---
PT IS ALERT, ORIENTED TO SELF AND SITUATION. THE PT IS UP IND IN HER ROOM. THE PT HAS DECLINED PHYSICAL ASSESSMENT. PT DECLINES MEALS AND OTHER ADLS AT TIMES. CALL LIGHT IN REACH. THE PT SPENT MOST OF THE DAY IN HER ROOM TODAY
[2023-12-04 19:14] VITALS: BP 106/70
[2023-12-05 02:40] VITALS: BP 108/71
--- NOTE | 2023-12-05 04:37 | NUR ---
SHIFT SUMMARY PATIENT ABLE TO SLEEP MOST OF THE SHIFT. NO PACING AT THIS POINT. ALERT TO SELF AND INDEPENDENT. NO IV ACCESS. DENIES CHEST PAIN, SOB, AND N/V. ALLOWED TWO SETS OF VITALS BUT REFUSED ASSESSMENT. SITTER 1:1. SNACKING BEGINNING OF SHIFT ONLY AT THIS POINT. CALL LIGHT IN REACH. BED IN LOWEST POSITION. WILL CONTINUE TO MONITOR UNTIL DAY SHIFT NURSE ASSUMES CARE.
[2023-12-05 06:58] LABS: FACTIN SMOOTH MUSCLE,IGG ELISA 5 Units (0-19)
[2023-12-05 08:03] VITALS: BP 114/70
[2023-12-05 16:17] VITALS: BP 92/67
--- NOTE | 2023-12-05 17:36 | NUR ---
PT IS A/ERT, ORIENTED TO SELF AND SITUATION. THE PT IS UP IND IN HER ROOM. THE PT DECLINED ANY PHYSICAL ASSESSMENTS TODAY, ALLOWED FOR VS TO BE TAKEN ONLY. THE PT HAD N/V TODAY AFTER LUNCH, AFTER VOMITING SHE STATED THAT SHE FELT BETTER AND DECLINED THE OFFER TO GET HER SOMETHING FOR NAUSEA. THE PT LAYED ON HER BED FOR MOST OF THE DAY TODAY. CALL LIGHT IN REACH
[2023-12-05 20:35] VITALS: BP 108/69
--- NOTE | 2023-12-06 04:06 | NUR ---
SHIFT SUMMARY 53 YR F ADMITTED ON 11/14/23. FULL CODE. NO ACUTE CHANGES THIS SHIFT. NO C/O N/V THIS SHIFT. PT SLEPT FOR MOST OF THIS SHIFT BUT DID WAKE UP AT ONE POINT AND REQUESTED PEANUT BUTTER AND CRACKERS WHICH SHE ATE WITHOUT FEELING SICK. PT DENIED ASSESSMENT BUT ALLOWED FOR VITALS TO BE TAKEN.
[2023-12-06 04:35] VITALS: BP 97/74
[2023-12-06 07:53] VITALS: BP 99/68
[2023-12-06] MEDS ORDERED: OLANZapine 10 MG Vial IM PRN ×2 (08:35→15:40)
--- NOTE | 2023-12-06 17:54 | NUR ---
PT IS ALERT, ORIENTED TO SELF AND SITUATION. THE PT TODAY AGAIN REFUSED NURSING CARE AND PHYSICAL ASSESSMENT. PT HAS BEEN LYING IN THE BED FOR MOST OF THE DAY. PT REFUSED MEALS. HAS BEEN EATING PEANUT BUTTER AND CRACKERS. 1:1 SITTER AT THE BEDSIDE CALL LIGHT IN REACH
[2023-12-06 19:29] VITALS: BP 98/64
[2023-12-06] MEDS ORDERED: OLANZapine ODT 5 MG Tab MM SCH (21:00)
[2023-12-07 03:04] VITALS: BP 92/62
--- NOTE | 2023-12-07 05:14 | NUR ---
SHIFT SUMMARY PATIENT HAS NOT BEEN ALERT AND ORIENTED. PATIENT HAS HAD NOT HAD ANY ACUTE EVENTS THIS. VITAL SIGNS REVIEWED. PATIENT HAS BEEN ASLEEP MOST OF SHIFT, AWAKENING BRIEFLY FOR SNACKS. PATIENT HAS HAD SITTER MOST OF SHIFT. PATIENT HAS NOT COMPLAINED OF PAIN, NAUSEA, SOB OR VOMITTING THIS SHIFT. BED IN LOCKED AND LOWEST POSITION. CALL LIGHT IN PLACE. WILL MONITOR UNTIL SHIFT CHANGE.
[2023-12-07 08:12] VITALS: BP 97/59
[2023-12-07 15:25] VITALS: BP 98/72
--- NOTE | 2023-12-07 16:28 | NUR ---
SHIFT SUMMARY PT SLEEPING, RESTING QUIETLY AT START OF SHIFT. PT HAS SLEPT MOST OF DAY TO PRESENT. PT WAKES FOR CARE, BUT HAS REFUSED ALL MEALS. WILL EAT SOME SNACKS. HAS REMAINED IN RM TO PRESENT TODAY. PT WAITING FOR GUARDIANSHIP AND PLACEMENT. REFUSES MOST OF ALL CARE AND MEDICATIONS. INDEPENDENT IN AND TO [facility] NEEDED. CALL LT IN REACH.
[2023-12-07 19:39] VITALS: BP 101/71
[2023-12-08 04:29] VITALS: BP 97/61
--- NOTE | 2023-12-08 06:17 | NUR ---
SHIFT SUMMARY: Pt is admitted for dementia and is a full code. Is alert and able to make needs known. ADLs have been independent for shift. Denies pain or discomfort when asked.
[2023-12-08 07:11] VITALS: BP 100/65
--- NOTE | 2023-12-08 09:00 | NUR ---
walked into pt room she states I dont want to talk, would not allow this nurse to ask her how she is, as adiment that she wants to be left alone, she is laying in bed on her side, no s/s of distress, call light in reach.
[2023-12-08 15:38] VITALS: BP 104/67
--- NOTE | 2023-12-08 19:22 | NUR ---
pt refused all care today, she came out in stock several times trying to go through the doors, she refused a po medication, so she recieved an im and has been calm the rest of the shift. call light in reach.
[2023-12-08 19:38] VITALS: BP 109/69
[2023-12-09 04:48] VITALS: BP 104/68
[2023-12-09 07:44] VITALS: BP 108/68
[2023-12-09 15:29] VITALS: BP 104/70
--- NOTE | 2023-12-09 17:37 | NUR ---
SHIFT SUMMARY: NO NEW ACUTE CHANGES IN PATIENT CONDITION THIS SHIFT. PATIENT CONTINUES TO REFUSED ANSWERING QUESTIONS, SKIN ASSESSMENT, BUT ALLOWED THIS RN TO AUSCULATE HER HEART, ABDOMEN AND LUNGS. ALSO PATIENT ALLOWED DEPUTY DIRECTOR OF NURSING TO HAVE HER VITALS TAKEN THIS SHIFT. PATIENT ATE 80%-BREAKFAST, 100% LUNCH AND SNACKS (CRACKERS/ENSURE) T/O SHIFT PER REQUEST. PATIENT CONTINENCE OF BLADDER, AMBULATES TO BATHROOM INDEPENDENTLY. PATIENT STILL ON 1:1 SITTER. NO IV ACCESS PER ORDER.
[2023-12-09 19:33] VITALS: BP 109/71
[2023-12-10 04:36] VITALS: BP 111/70
--- NOTE | 2023-12-10 04:47 | NUR ---
SHIFT SUMMARY MARTHA WAS ALERT AT START OF SHIFT. PT REFUSED ASSESSMENT, REFUSED EVENING MED, AND REFUSED TO ANSWER QUESTIONS. SHE ONLY WANTED CRACKERS AND SPRITE TONIGHT. NO OTHER BEHAVIORAL ISSUES. PT RESTING IN BED AT LOW POSITION.
[2023-12-10 07:43] VITALS: BP 103/69
[2023-12-10 14:46] VITALS: BP 111/70
--- NOTE | 2023-12-10 17:09 | NUR ---
SHIFT SUMMARY: NO NEW CHANGES IN PATIENT CONDITION THIS SHIFT. PATIENT CONTINUES TO REFUSED ANSWERING QUESTIONS AND SKIN ASSESMENT. PATIENT LAYING IN BED RESTING ON/OFF T/O SHIFT. PATIENT HAS GOOD APPETITE, CONTINENCE OF BOWELS/BLADDER AND AMBULATES TO BATHROOM INDEPENDENTLY. PATIENT HAS 1:1 SITTER OUTSIDE HER ROOM. NO IV ACCESS PER ORDER. PATIENT AWAITING SAFE PLACEMENT.
[2023-12-10 19:53] VITALS: BP 103/74
[2023-12-11 04:48] VITALS: BP 108/76
--- NOTE | 2023-12-11 04:57 | NUR ---
SHIFT SUMMARY MARTHA WAS ALERT AT START OF SHIFT AND INDEPENDENT IN THE ROOM. PT REFUSED ASSESSMENT, REFUSED EVENING MED, AND REFUSED TO ANSWER QUESTIONS. SHE ONLY WANTED SNACKS. NO OTHER BEHAVIORAL ISSUES. PT RESTING IN BED AT LOW POSITION.
[2023-12-11 07:25] VITALS: BP 101/73
[2023-12-11 16:26] VITALS: BP 102/73
[2023-12-11] MEDS ORDERED: OLANZapine ODT 5 MG Tab MM SCH (18:00)
--- NOTE | 2023-12-11 19:00 | NUR ---
SHIFT SUMMARY: PATIENT ALERT, COULD NOT ASSESS THE ORIENTATION D/T NOT ANSWERING QUESTIONS. PATIENT ALLOWED THIS RN TO AUSCULTATE HER HEART, ABDOMEN AND LUNGS. PATIENT TOOK HER SCHEDULED PO MEDS THIS PM. PATIENT AMBULATES IN HALLWAYS ON/OFF T/O SHIFT. PATIENT HAS GOOD APPETITE AND REQUESTING SNACKS T/O SHIFT. PATIENT CONTINENCE OF BOWELS/BLADDER, AMBULATES TO BATHROOM INDEPENDENTLY. VITAL SIGNS REVIEWED. NO IV ACCESS PER ORDER. PATIENT HAS 1:1 SITTER OUTSIDE HER ROOM FOR SAFETY.
[2023-12-11 19:44] VITALS: BP 108/68
[2023-12-12 02:06] VITALS: BP 106/68
--- NOTE | 2023-12-12 04:36 | NUR ---
SHIFT SUMMARY MARTHA WAS ALERT AT START OF SHIFT AND INDEPENDENT IN THE ROOM. PT REFUSED MOST ASPECTS OF ASSESSMENT, AND REFUSED TO ANSWER MOST QUESTIONS. PT PACING IN KUMAR FREQUENTLY TONIGHT. NO OTHER BEHAVIORAL ISSUES. PT RESTING IN BED AT LOW POSITION.
[2023-12-12 07:27] VITALS: BP 104/73
[2023-12-12 14:39] VITALS: BP 107/71
--- NOTE | 2023-12-12 16:22 | NUR ---
SUMMARY- PT A/O X1- WITHDRAWN AND REFUSES CARE FREQ. TOLERATING FOOD AND FLUIDS. FREQ PACES IN THE HALLS DURING WAKING HOURS. EATS FREQ, A LOT OF SNACKS IN BETWEEN EATING ALL MEALS. DRINKS SODA ONLY. DENIES PAIN. LUNGS CLEAR. REFUSED OTHER ASSESSMENT. PT IS DIRECTABLE, DOES NOT TRY TO LEAVE. VOIDS INDEPENDANTLY. AWAITING PLACEMENT.
[2023-12-12 19:16] VITALS: BP 102/69
[2023-12-13 02:25] VITALS: BP 101/70
--- NOTE | 2023-12-13 04:20 | NUR ---
SHIFT SUMMARY PT ALLOWS VS AND AUSCULATION BUT DID NOT ALLOW ME TO DO A SKIN ASSESSMENT. PER PT PTSD HX, REMINDED HER OF HER AUTONOMY. PT IS AMBULATORY AND PACES UP AND DOWN THE KUMAR, WAS A FLIGHT RISK BUT HAS NOT ATTEMPTED THIS SHIFT. REQUESTING CRACKERS, CHEESE, PEANUT BUTTER AND SPRITE. DOES NOT CALL APPROPRIATELY. DOES NOT ANSWER ORIENTATION QUESTIONS APPROPRIATELY, GETS IRRITABLE. GUARDIANSHIP HOLD, AWAITING PLACEMENT
[2023-12-13 07:05] VITALS: BP 103/72
[2023-12-13 15:12] VITALS: BP 105/69
--- NOTE | 2023-12-13 16:39 | NUR ---
SUMMARY- PT A/O TO SELF. INDEPENDANT, STEADY ON FEET. FREQ PACING THE HALLS. DOES NOT ATTEMPT TO LEAVE PCU UNIT. MIN VERBAL INTERACTION WITH STAFF UNLESS SHE IS ASKING FOR FOOD. DECLINES MOST REQUESTS OF NURSING STAFF, "I DONT WANT TO TALK RIGHT NOW". TOLERATING FOOD AND FLUIDS. STILL AWAITING PLACEMENT
[2023-12-13 19:44] VITALS: BP 106/67
[2023-12-14 03:34] VITALS: BP 115/63
--- NOTE | 2023-12-14 04:29 | NUR ---
SHIFT SUMMARY PT DOES NOT WANT TO ANSWER ORIENTATION QUESTIONS. UNABLE TO ASSESS, REFUSED SKIN ASSESSMENT. USES BSC INDEPENDENTLY IN ROOM, PACES UP AND DOWN KUMAR INDEPENDENTLY AND REQUESTED SNACKS OVERNIGHT. NONSKID SOCKS ON.
[2023-12-14 07:35] VITALS: BP 112/73
--- NOTE | 2023-12-14 13:00 | NUR ---
Upon hearing from a staff member that the patient had no clothing, I brought sweat pants and shirt and a pair of slides.
[2023-12-14 19:17] VITALS: BP 135/96
[2023-12-15 07:44] VITALS: BP 111/79
--- NOTE | 2023-12-15 14:29 | NUR ---
0900- PT REFUSING THIS RN TO PERFORM AN ASSESSMENT THIS AM. PT STATED, "NO!"
--- NOTE | 2023-12-15 14:30 | NUR ---
1140- PT STILL REFUSING THIS RN TO PERFORM A SHIFT ASSESSMENT. PT STATED, "NO."
[2023-12-15 15:07] VITALS: BP 107/91
--- NOTE | 2023-12-15 17:05 | NUR ---
ASSESSED PATIENT, DISCUSSED PLAN OF CARE WITH FLOOR RN. WILL CONTINUE TO FOLLOW UP WITH MEDICATION ADMINISTRATION.
--- NOTE | 2023-12-15 17:33 | NUR ---
Pt declined po Zyprexa, but she accepted IM injection. Tolerated well.
[2023-12-15 19:43] VITALS: BP 105/82
--- NOTE | 2023-12-16 05:52 | NUR ---
SHIFT SUMMARY PT IS A&O TO SELF. HARD TO ASSESS D/T HER REFUSING TO ANSWER MY QUESTIONS OR AN ASSESSMENT. WHEN ASKED IF I COULD LISTEN TO HER HEART AND LUNGS SHE STATED "NO, YOU DON'T NEED TO." VSS ON RA. PT TOLERATING A REGULAR DIET, REQUESTING SNACKS T/O NOC. PT REMAINS CONFIDENTIAL. BED IN LOWEST POSITION, CALL LIGHT WITHIN REACH. PT DOES NOT USE CALL LIGHT, COMES OUT IN KUMAR TO ASK EMPLOYEES.
[2023-12-16 07:34] VITALS: BP 104/69
[2023-12-16 15:20] VITALS: BP 97/70
--- NOTE | 2023-12-16 16:59 | NUR ---
1015- PT REFUSING HER SHIFT ASSESSMENT. PT CONTINUOUSLY STATES, "NO" WHEN ASKED IF AN ASSESSMENT CAN BE PERFORMED.
--- NOTE | 2023-12-16 17:00 | NUR ---
1700- PT IS STILL REFUSING HER PHYSICAL ASSESSMENT FOR THE SHIFT.
--- NOTE | 2023-12-16 18:22 | NUR ---
SUMMARY- NO CHANGES WITH PT THIS SHIFT. NO ACUTE EVENTS. PT AGREEABLE TO TAKE ZYPREXA PO AT 1800 TONIGHT WITH NO ISSUES. AAOX1 TO SELF ONLY. PT INDEPENDENT IN HALLWAY AND ROOM. PT REFUSED ASSESSMENT THIS SHIFT.
[2023-12-16 19:11] VITALS: BP 96/66
--- NOTE | 2023-12-17 04:40 | NUR ---
ASP NET C DEVELOPER SUMMARY PT A&0 X 2, ORIENTED TO SELF AND PLACE. PT UP PACING THE HALLS BETWEEN SLEEPING AND FREQUENTLY REQUESTING SNACKS. PT DID NOT WANT TO ALLOW MY TO DO A FULL NURSING ASSESSMENT. PT DID SMILE SHE WAS WALKING BY WHEN PACING. PT ONLY SLEEPING FOR ABOUT 2 HOURS BEFORE WAKING TO PACE AROUND. NO ACUTE CHANGES THIS SHIFT. 12/17/23 HENRRY BERRY RN
[2023-12-17 04:46] VITALS: BP 97/75
[2023-12-17 07:41] VITALS: BP 94/64
[2023-12-17 15:29] VITALS: BP 95/61
--- NOTE | 2023-12-17 17:18 | NUR ---
SUMMARY- NO CHANGES THIS SHIFT. PT REFUSED ASSESSMENT. WALKING UP AND DOWN THE KUMAR INDEPENDENTLY, ASKS FOR SNACKS AND DRINKS, HAS NOT TRIED TO LEAVE KUMAR THIS SHIFT. OVERALL BEEN PLEASANT.
--- NOTE | 2023-12-17 18:27 | NUR ---
PT ROOM SMELL LIKE VOMIT. SMELL COMING FROM TRASH CAN. PT DENIES HAVING ANY NAUSEA OR VOMITING TODAY.
[2023-12-17 19:29] VITALS: BP 101/69
[2023-12-18 04:06] VITALS: BP 87/41
[2023-12-18 04:17] VITALS: BP 115/60
--- NOTE | 2023-12-18 04:22 | NUR ---
SHIFT SUMMARY. NO ACUTE CHANGES FROM PREVIOUS SHIFT. PATIENT WALKING UP AND DOWN KUMAR INTERMITTENTLY T/O NIGHT. PATIENT ASKING FOR SNACKS AND STARRY. BED IS LOCKED IN THE LOWEST POSITION WITH CALL LIGHT IN REACH. CARE IS ONGOING.
[2023-12-18 07:20] VITALS: BP 97/68
[2023-12-18 16:46] VITALS: BP 103/69
--- NOTE | 2023-12-18 17:49 | NUR ---
SUMMARY NO CHANGES THIS SHIFT. PT HAS BEEN PACING THE HALLWAY, PLEASANT TODAY. REFUSING ASSESSMENT AND OFFER TO SHOWER. ABLE TO MAKE NEEDS KNOWN. ALERT AND CONFUSED.
[2023-12-18 19:19] VITALS: BP 100/67
[2023-12-19 02:56] VITALS: BP 100/81
--- NOTE | 2023-12-19 04:51 | NUR ---
SHIFT SUMMARY. NO ACUTE CHANGES. PATIENT UP PACING KUMAR X3 SEPERATE TIMES. PATIENT ALERT TO SELF. PATIENT ASKS FOR SNACKS. PATIENT DENIED ANY NEEDS OTHER THAN SNACKS. BED IS LOCKED IN THE LOWEST POSITION WITH CALL LIGHT IN REACH. NO S/S OF DISTRESS NOTED AT THIS TIME. CARE IS ONGOING.
[2023-12-19 09:18] VITALS: BP 98/73
[2023-12-19 15:16] VITALS: BP 99/73
--- NOTE | 2023-12-19 17:22 | NUR ---
NO ACUTE CHANGES PT AO AND STAYED IN HER ROOM TODAY. PT WOULD SIT AT THE EDGE OF HER BED AND TOOK SOME NAPS WELL. WILL CONTINUE TO MONITOR.
[2023-12-19 19:57] VITALS: BP 96/67
[2023-12-20 03:57] VITALS: BP 103/83
--- NOTE | 2023-12-20 05:14 | NUR ---
SHIFT SUMMARY. NO ACUTE CHANGES. PATIENT IS ALERT TO SELF. PATIENT IS PLEASANT. UP X3 T/O NIGHT PACING AND ASKING FOR SNACKS. PATIENT UP INDEPENDENTLY. PATIENT AWAITING PLACEMENT. BED IS LOCKED IN THE LOWEST POSITION WITH CALL LIGHT IN REACH. CARE IS ONGOING.
[2023-12-20 07:09] VITALS: BP 103/76
[2023-12-20 16:57] VITALS: BP 96/67
--- NOTE | 2023-12-20 17:30 | NUR ---
SHIFT SUMMARY PT CONT TO REFUSE ASSESSMENT AND MOST CARE. NO ACUTE CHANGES THIS SHIFT. CALL LIGHT WITHIN REACH.
[2023-12-20 19:45] VITALS: BP 100/70
[2023-12-21 02:59] VITALS: BP 111/81
--- NOTE | 2023-12-21 05:55 | NUR ---
SHIFT SUMMARY - NO ACUTE CHANGES THIS SHIFT. PT HAS BEEN COOPERATIVE WITH CARE, AND ALLOWED THIS RN TO ASSESS HER AT THE BEGINNING OF THE SHIFT. PT HAS AMBULATED IN HALLS, ASKING STAFF FOR FOOD AND FLUIDS - PROVIDED PER REQUEST. CALL LIGHT WITHIN REACH. BED IN LOW POSITION. CALL LIGHT WITHIN REACH. WILL CONTINUE TO MONITOR TO AM SHIFT.
[2023-12-21 07:30] VITALS: BP 103/73
[2023-12-21 15:25] VITALS: BP 95/66
--- NOTE | 2023-12-21 18:11 | NUR ---
PATIENT WITHDRAWN, BUT COOPERATIVE WITH CARE THIS SHIFT. UP WALKING INDEPENDENTLY. ALLOWED ASSESSMENT TODAY AND TOOK MEDICATION. CONTINENT OF BOWEL AND BLADDER. SKIN INTACT. NO NEW CONCERNS THIS SHIFT.
[2023-12-21 19:34] VITALS: BP 98/69
[2023-12-22 03:27] VITALS: BP 94/65
--- NOTE | 2023-12-22 06:50 | NUR ---
END OF SHIFT SUMMARY PT A&OX3, CONFUSED TO SITUATION, STATING SHE DID NOT KNOW WHY SHE WAS IN HOSPITAL. ALLOWED ASSESSMENT. DENIED NEEDS OTHER THAN FOOD AND DRINK. AMBULATING INDEPENDENTLY AND APPEARED TO SLEEP WELL DURING NIGHT, NO ACUTE EVENTS.
[2023-12-22 07:16] VITALS: BP 100/69
[2023-12-22 15:36] VITALS: BP 95/60
--- NOTE | 2023-12-22 18:27 | NUR ---
NO ACUTE CHANGES THIS SHIFT. PATIENT WITHDRAWN, BUT COOPERATIVE WITH CARE. INDEPENDENT WITH ADL'S. AWAITING NEWS REEL CAMERAMAN PLACEMENT.
[2023-12-22 20:29] VITALS: BP 93/63
[2023-12-23 05:07] VITALS: BP 96/61
--- NOTE | 2023-12-23 05:40 | NUR ---
SHIFT SUMMARY PATIENT IS ALERT BUT NOT ORIENTED. PATIENT HAS BEEN PLEASENT AND COOPERATIVE THIS SHIFT. PATIENT HAS BEEN IND OF ADLS. PATIENT HAS BEEN IND IN ROOM AND HALLS AND REQUESTING SNACKS. PATIENT STILL WITHDRAWN. AWAITING PLACEMENT. NO COMPLAINTS OF PAIN, NAUSEA, SOB OR VOMITTING.
[2023-12-23 07:21] VITALS: BP 94/70
[2023-12-23 15:38] VITALS: BP 100/66
--- NOTE | 2023-12-23 18:05 | NUR ---
SHIFT SUMMARY: PT REFUSING ORIENTATION QUESTIONS THIS AM. JARED STATE NAME. PT MOSTLY COOPERATIVE WITH CARE THIS SHIFT. PT AGREEABLE TO TAKE SHOWER. INDEPENDENT IN HALLS AND WITH ADL'S. REQUESTING SNACKS PERIODICALLY. CALL LIGHT IN REACH. BED IN LOWEST POSITION.
[2023-12-23 19:46] VITALS: BP 93/68
[2023-12-24 03:43] VITALS: BP 93/68
--- NOTE | 2023-12-24 03:53 | NUR ---
SHIFT SUMMARY PATIENT IS ALERT BUT NOT ORIENTED. PATIENT HAS HAD NO ACUTE EVENTS THIS SHIFT. VITAL SIGNS REVIEWED. PATIENT HAS NOT BEEN COMPLIANT WITH ASSESSMENT QUESTIONS. PATIENT HAS BEEN MOSTLY IND WITH ADLS THIS SHIFT. IND IN ROOM. PERIODICALLY REQUESTING SNACKS. NO COMPLAINTS OF PAIN, NAUSEA, SOB OR VOMITTING THIS SHIFT. BED IN LOCKED AND LOWEST POSITION. CALL LIGHT IN PLACE. WILL MONITOR UNTIL SHIFT CHANGE.
[2023-12-24 07:42] VITALS: BP 97/69
[2023-12-24 15:24] VITALS: BP 98/69
--- NOTE | 2023-12-24 18:11 | NUR ---
PATIENT IS ALERT AND ORIENTED TO SELF AND FOLLOWING DIRECTIONS. PATIENT REFUSES MOST CARE. SHE WALKED THE HALLS TODAY, ATE SNACKS AND NAPPED IN HER ROOM. NO NEW CONCERNS. WILL CONTINUE TO MONITOR
[2023-12-24 19:40] VITALS: BP 95/70
--- NOTE | 2023-12-25 03:41 | NUR ---
DOG BREEDER SUMMARY VSS. QUIET AND WITHDRAWN TO STAFF. UP AD PILLO, OCCASIONAL REQUEST FOR "CRACKERS", HAS BEEN RESTING QUIETLY WITH NO NOTED S/S ACUTE PHYSICAL DISTRESS. RESPS EVEN. ABLE TO REPOSITION SELF IN BED WITHOUT ASSIST. RAILS UP X 2, CALL LIGHT IN REACH AND BED IN LOW POSITION FOR SAFETY. WILL CONTINUE TO MONITOR
[2023-12-25 04:31] VITALS: BP 102/75
[2023-12-25 07:32] VITALS: BP 93/65
--- NOTE | 2023-12-25 12:15 | NUR ---
MARTHA HAS NOT BEEN UP OUT OF BED TODAY. REFUSES ANYTHING TO EAT OR DRINK. WHEN ASKED IF SHE IS NOT FEELING WELL, SHE SAYS, "NO".
[2023-12-25 14:56] VITALS: BP 100/69
--- NOTE | 2023-12-25 16:08 | NUR ---
REQUESTED SALTINES x3 PACKS. GIVEN.
--- NOTE | 2023-12-25 17:18 | NUR ---
DAY SHIFT SUMMARY: A&Ox2-3. DOES NOT CALL, BUT WILL CALL OUT OR COME TO HALLWAY FOR STAFF MEMBER ASSISTANCE WHEN NEEDED. REQUESTED A COUPLE OF SNACKS TODAY, BUT OTHERWISE STAYED IN BED AND SLEPT MOST OF THE DAY. DENIED ANY OFFER OF TV, MUSIC OR AMBULATION. PLAN TO FIND PLACEMENT. NO ACUTE CONCERNS TODAY. REPORT TO ONCOMING RN.
[2023-12-25 19:30] VITALS: BP 96/67
--- NOTE | 2023-12-26 04:32 | NUR ---
ASSEMBLER LATCHES AND SPRINGS SUMMARY VSS. QUIET. WITHDRAWN. SPENT MOST OF SHIFT IN BED, AWAKE AT TIMES. NO C/O VOICED. RESPS EVEN AND NO S/S ACUTE PHYSICAL DISTRESS. UP AD PILLO. ABLE TO REPOSITION SELF IN BED WITHOUT ASSIST. RAILS UP X 2, CALL LIGHT IN REACH AND BED IN LOW POSITION FOR SAFETY. WILL CONTINUE TO MONITOR
[2023-12-26 05:30] VITALS: BP 105/73
[2023-12-26 07:38] VITALS: BP 104/74
--- NOTE | 2023-12-26 09:00 | NUR ---
pt laying in bed, states she is ok and doesn't need anything, wants to be left alone, a/ox2-3, flat affect, refusing assessment, no s/s of distress, on r/a, no cough noted, no edema noted, up ad emily in room and stock, does own adls indep, call light in reach, agreed to call if any needs.
[2023-12-26 15:53] VITALS: BP 94/65
[2023-12-26] MEDS ORDERED: OLANZapine ODT 10 MG Tab MM SCH (18:00)
--- NOTE | 2023-12-26 18:09 | NUR ---
pt had an uneventful day, didn't want to eat but one chicken strip for dinner and asked that I remove tray, did take her po meds this evening. came out in stock and asked for crackers once. no acute changes this shift. call light in reach.
[2023-12-26 19:43] VITALS: BP 99/58
--- NOTE | 2023-12-27 03:08 | NUR ---
DOCUMENTATION IMPROVEMENT SPECIALIST SUMMARY VSS. QUIET AND WITHDRAWN BEHAVIOR. STATED SHE WAS OK WHEN ASKED BY STAFF. HAS REMAINED IN BED WITH FEW EXCEPTIONS THROUGHOUT SHIFT, RESTING QUIETLY WITHOUT NOTED S/S ACUTE DISTRESS. BARRIE TO REPOSITION SELF IN BED WITHOUT ASSIST, UP AD PILLO. CALL LIGHT IN REACH, RAILS UP X 2 AND BED IN LOW POSITION FOR SAFETY. WILL CONTINUE TO MONITOR
[2023-12-27 07:51] VITALS: BP 96/66
--- NOTE | 2023-12-27 14:32 | NUR ---
NOTE: MONIK, A NURSE FROM [facility], CALLED FOR AN UPDATE. UPDATE PROVIDED AND SHE DID NOT HAVE ANY FURTHER QUESTIONS.
[2023-12-27 15:31] VITALS: BP 95/64
--- NOTE | 2023-12-27 17:21 | NUR ---
SHIFT SUMMARY PT AOX1-2, IN BED MOST OF THE DAY. UP TO WALK THE HALLS TWICE. SHE HAS HAD NO COMPLAINTS. SHE TOOK HER MEDS THIS EVENING AND TOLERATED IT WELL. NO ACUTE EVENTS. CALL LIGHT WITHIN REACH, BED LOCKED AND IN THE LOWEST POSITION. WILL REPORT TO ONCOMING NURSE.
[2023-12-27 19:55] VITALS: BP 100/68
--- NOTE | 2023-12-28 04:12 | NUR ---
COMMODITIES BROKER SUMMARY PT REMAINS WITHDRAWN AND QUIET. VOICED WAS OK WHEN ASKED. RESPS EVEN. NO NOTED S/S ACUTE DISTRESS. TOLERATING FINGER FOODS. HAS BEEN RESTING QUIETLY WITH FEW INTERRUPTIONS. CALL LIGHT IN REACH, RAILS UP X 2 AND BED IN LOW POSITION FOR SAFETY. WILL CONTINUE TO MONITOR.
[2023-12-28 08:29] VITALS: BP 95/69
[2023-12-28 15:44] VITALS: BP 93/71
--- NOTE | 2023-12-28 18:30 | NUR ---
SHIFT SUMMARY PT AOX1, INDEPENDENT IN THE ROOM AND IN THE HALLWAYS. NO COMPLAINTS THIS SHIFT. SNACKS PROVIDED AT THE PT'S REQUEST. SHE TOOK HER EVENING MEDS TONIGHT. AWAITING PLACEMENT. CALL LIGHT WITHIN REACH, BED LOCKED AND IN THE LOWEST POSITION. WILL REPORT TO ONCOMING NURSE.
[2023-12-28 20:13] VITALS: BP 104/74
--- NOTE | 2023-12-29 05:34 | NUR ---
SHIFT SUMMARY NOC PT A/O X2. PLEASANT BUT DOES NOT WANT TO PARTICIPATE IN CARE. ALLOWED VS WHICH WERE STABLE. REFUSED ALL OTHER ASSESSMENTS, WELL PO ZYPREXA AT BEDTIME. PT ONLY REQUESTED SNACKS BEFORE GOING TO BED. PT STILL AWAITING PLACEMENT BY GUARDIAN AND APS. PT CURRENTLY RESTING WITH BED IN LOWEST POSITION, AND CALL LIGHT WITHIN REACH.
[2023-12-29 07:30] VITALS: BP 110/85
[2023-12-29 14:46] VITALS: BP 101/82
--- NOTE | 2023-12-29 16:42 | NUR ---
Pt remains alert to self. Resting comfortably most of shift. Not pacing in the stock. Cooperative with care and vitals. Using the bathroom. All needs met at this time. Will continue to monitor.
[2023-12-29 20:05] VITALS: BP 102/81
[2023-12-30 04:45] VITALS: BP 107/84
--- NOTE | 2023-12-30 04:54 | NUR ---
SHIFT SUMMARY NOC PT A/O TO SELF. PLEASANT BUT WILL ONLY ALLOW VS TO BE TAKEN. VSS. PT ONLY REQUESTS WERE SALTINES AND STARRY BEVERAGE, OTHERWISE PT JUST LAID IN BED FOR MOST OF SHIFT. THEY DID NOT ROAM HALLWAYS. ASKED PT IF THEY WOULD BE OPEN TO SHIFT ASSESSMENT AND THEY POLITELY DECLINED. PT STILL AWAITING APS OR GUARDIAN TO FIND LTC PLACEMENT. PT CURRENTLY RESTING WITH BED IN LOWEST POSITION, AND CALL LIGHT WITHIN REACH.
[2023-12-30 07:09] VITALS: BP 100/75
[2023-12-30 15:11] VITALS: BP 107/67
--- NOTE | 2023-12-30 17:52 | NUR ---
SHIFT SUMMARY- PT ALERT AND ORIENTED TO SELF. PT HAS BEEN UP INDEPENDENT T/O THE DAY NO IV ACCESS NEEDED. PT HAS BEEN COOPERATIVE WITH ALL CARE AND TOOK A SHOWER TODAY. PT UP EATING DINNER NO S&S OF DISTRESS AT THE TIME OF SHIFT SUMMARY.
[2023-12-30 20:25] VITALS: BP 109/82
[2023-12-31 05:03] VITALS: BP 102/64
--- NOTE | 2023-12-31 06:41 | NUR ---
SHIFT SUMMARY: Pt admitted for dementia and is a full code. Is alert and able to make most needs known. ADLs have been IND. stated that she had some pain in the right hip and upper leg at the start of shift. When offered something for it she just wanted to stretch it and declined any PRNs.
[2023-12-31 07:29] VITALS: BP 108/68
[2023-12-31 16:53] VITALS: BP 117/80
--- NOTE | 2023-12-31 19:15 | NUR ---
SHIFT SUMMARY- PT HAS HAD NO ACUTE EVENTS T/O THE SHIFT. PT IN BED AT THE TIME OF BEDSIDE REPORT, SMILING AND TALKING TO STAFF NO S&S OF DISTRESS NOTED.
[2023-12-31 20:34] VITALS: BP 104/79
[2024-01-01 04:53] VITALS: BP 109/78
[2024-01-01 08:19] VITALS: BP 103/78
[2024-01-01 16:27] VITALS: BP 100/67
--- NOTE | 2024-01-01 18:20 | NUR ---
SHIFT SUMMARY- PT ALERT AND ORIENTED TO SELF, INDEPENDENT IN THE HALLS, NO ACUTE CHANGE T/O THE DAY. PT UP WALKING AROUND HER ROOM AT THIS TIME NO S&S OF DISTRESS.
[2024-01-01 19:44] VITALS: BP 104/68
[2024-01-02 03:22] VITALS: BP 109/77
[2024-01-02 07:15] VITALS: BP 96/62
[2024-01-02 15:46] VITALS: BP 99/68
--- NOTE | 2024-01-02 18:33 | NUR ---
SHIFT SUMMARY: NO ACUTE EVENTS. DENIED PAIN. WAS IN GOOD SPIRITS ALL DAY. AWAITING PLACEMENT.
[2024-01-02 19:46] VITALS: BP 109/72
[2024-01-03 03:16] VITALS: BP 111/75
--- NOTE | 2024-01-03 04:45 | NUR ---
SHIFT SUMMARY NO ACUTE CHANGES THIS SHIFT. PT HAD SEVERAL SNACKS THROUGHOUT THE NIGHT AND WAS PLEASANT, CALM, AND RESPECTFUL.
[2024-01-03 07:15] VITALS: BP 107/77
[2024-01-03] MEDS ORDERED: Acetaminophen 325 MG TABLET PO PRN (12:15)
[2024-01-03 15:12] VITALS: BP 102/66
--- NOTE | 2024-01-03 18:48 | NUR ---
SHIFT SUMMARY: NO ACUTE EVENTS. C/O "06/14" PAIN IN BACK AND LEGS; TYLENOL ORDERED AND GIVEN WITH ADEQUATE RELIEF. AMBULATING INDEPENDENTLY. GOOD APPETITE. AWAITING PLACEMENT.
[2024-01-03 20:05] VITALS: BP 101/65
[2024-01-04 02:59] VITALS: BP 91/71
--- NOTE | 2024-01-04 06:03 | NUR ---
A & O X 4, AND VITALS ARE STBLE. PT COMPLAINED OF A 10/10 PAIN TO LEGS AND BACK, PRN PAIN MEDS WERE GIVEN.
[2024-01-04 07:11] VITALS: BP 110/78
[2024-01-04 16:20] VITALS: BP 109/76
--- NOTE | 2024-01-04 19:47 | NUR ---
SUMMARY- PT A/O X4, INDEPENDANT AMBULATES IN KUMAR AND ROOM. USES BATHROOM ON HER OWN. TOLERATING FOOD AND FLUID. HAS BEEN COMPLAINING OF PAIN IN NECK, SHOULDERS AND LOW BACK. MEDICATED WITH TYLENOL Q6 WITH STATED RELEIF. AWAITING GAURDIANSHIP. UNEVENTFUL DAY, REPORTED TO TREVIN ANDERSON RN
[2024-01-04 19:48] VITALS: BP 100/67
[2024-01-05 03:28] VITALS: BP 106/66
--- NOTE | 2024-01-05 05:03 | NUR ---
SHIFT SUMMARY NO ACUTE EVENTS OVERNIGHT. PT WAS SMILING AND PLEASANT. SHE ASKED FOR SNACKS AND DRINKS REPEATEDLY. SNACKS AND DRINKS PROVIDED. PT COMPLAINED OF PAIN, TYLENOL GIVEN PER EMAR. PT STATED PAIN WAS BETTER AFTER TYLENOL WAS GIVEN. PT SLEPT THROUGHOUT THE NIGHT WITH UNLABORED BREATHING AND EVEN CHEST RISE AND FALL. WHEN SHE AWOKE AT 0430 SHE REQUESTED MORE DRINKS AND SNACKS. PT IS CALM AND SMILING.
--- NOTE | 2024-01-05 05:53 | NUR ---
CTA/SEARCH DIRECTOR I HAVE READ SEARCH DIRECTOR DOCUMENTATION. SHIFT SUMMARY IN SEARCH DIRECTOR NOTES
[2024-01-05 07:15] VITALS: BP 108/71
[2024-01-05 14:56] VITALS: BP 105/68
--- NOTE | 2024-01-05 16:36 | NUR ---
SUMMARY- PT ALERT TO SELF AND PLACE. INDEPENDANT IN ROOM AND HALLWAY AMBULATES WITHOUT DIFFICULTY. TYLENOL GIVEN PRN FOR BACK AND LEG STIFFNESS. ENCOURAGED ROM EXERCISES. PT STATES SHE RECENTLY HAD A BM AND THAT SHES VOIDING WITHOUT DIFFICULTY. CONT TO AWAIT MEDICAID, WAS REFUSED AND NOW ON APPEAL. WILL REPORT TO NOC RN
[2024-01-05 19:45] VITALS: BP 120/81
[2024-01-06 03:04] VITALS: BP 130/85
--- NOTE | 2024-01-06 05:50 | NUR ---
SHIFT SUMMARY PT SLEPT FOR 6 HOURS THROUGHOUT THE NIGHT. SHE WAS PROVIDED WITH SEVERAL SNACKS AND DRINKS PER HER REQUEST. PT WAS QUIET AND COOPERATIVE. ALERT AND ORIENTED X 4. NO ACUTE CHANGES OVERNIGHT.
--- NOTE | 2024-01-06 06:05 | NUR ---
CTA/ASSEMBLY STOCK SUPERVISOR I HAVE READ THE ASSEMBLY STOCK SUPERVISOR DOCUMENTATION. SHIFT SUMMARY IS IN ASSEMBLY STOCK SUPERVISOR NOTES.
[2024-01-06 07:19] VITALS: BP 114/85
[2024-01-06] MEDS ORDERED: Acetaminophen 325 MG TABLET PO SCH ×2 (10:00→12:00)
[2024-01-06 15:20] VITALS: BP 112/78
--- NOTE | 2024-01-06 15:24 | NUR ---
SHIFT SUMMARY: PATIENT A/O TO SELF AND PLACED, PLEASANT AND COOPERATIVE c CARE. PATIENT INDEPENDENT IN ROOM AND HALLWAY, WITHOUT S/S DIFFICULTY AMBULATING. PATIENT REPORTS PAIN 10/10 TO SHOULDER/ARMS/BACK AND LEGS, MEDICATED c PO TYLENOL c GOOD EFFECT. PATIENT HAD HEAD CT THIS AM c RESULT. PATIENT HAS GOOD APPETITE, CONTINENCE OF BLADDER, AMBULATES TO BATHROOM T/O SHIFT. VITAL SIGNS REVIEWED. NO IV ACCESS PER ORDER. PATIENT AWATING FOR SAFE PLACEMENT. CALL LIGHT IN REACH.
[2024-01-06 19:11] VITALS: BP 103/69
--- NOTE | 2024-01-07 05:18 | NUR ---
SHIFT SUMMARY NOC PT A/O TO SELF/PLACE. PLEASANT AND COOPERATIVE WITH CARE. VSS. PT ALLOWED SHIFT ASSESSMENT AND VS TO BE TAKEN. NO ACUTE CHANGES TO REPORT. PT PAIN BEING MANAGED WITH SCHEDULED TYLENOL Q6H FOR GENERALIZED PAIN. PT GUARDIAN IS APPEALING APD REFUSAL CURRENTLY FOR PLACEMENT. PT IS CURRENTLY RESTING WITH BED IN LOWEST POSITION, AND CALL LIGHT WITHIN REACH.
[2024-01-07 05:54] VITALS: BP 107/67
[2024-01-07 07:29] VITALS: BP 97/70
[2024-01-07 15:12] VITALS: BP 107/69
--- NOTE | 2024-01-07 16:00 | NUR ---
SHIFT SUMMARY: OVERALL, PATIENT MOOD AND AFFECT HAS IMPROVED. PATIENT APPEARS HAPPY, PLEASANT AND COOPERATIVE c CARE. PATIENT SHOWERED c [employer], LINEN CHANGED, EATING AND DRINKING WELL T/O SHIFT. PATIENT CONTINUES TO REPORTS PAIN TO SHOULDER/ARMS/BACK AND LEGS, MEDICATED c SCHEDULED TYLENOL c GOOD EFFECT. PATIENT LAYING IN BED AND NAPPING ON/OFF, CONTINENCE OF BOWELS/BLADDER AND AMBULATES TO BATHROOM INDEPENDENTLY T/O SHIFT. PATIENT AWAITING FOR SAFE PLACEMENT. NO IV ACCESS PER ORDER. CALL LIGHT IN REACH.
[2024-01-07 19:17] VITALS: BP 106/92
[2024-01-08 04:12] VITALS: BP 106/73
[2024-01-08 07:17] VITALS: BP 110/89
[2024-01-08 14:44] VITALS: BP 115/86
--- NOTE | 2024-01-08 18:23 | NUR ---
SHIFT SUMMARY: PT A & O TO SELF, PLACE, AND FAMILY. PLEASANT AT START OF SHIFT; INCREASING ANXIETY T/O AFTERNOON; PT REFUSING AFTERNOON & EVENING MEDICATIONS; PT ALLOWING VITAL SIGNS TO BE TAKEN; VITAL SIGNS STABLE. AWAITING PLACEMNT. BED IN LOW POSITION; CALL LIGHT WITHIN REACH. WCTM.
[2024-01-08 19:56] VITALS: BP 105/85
[2024-01-09 03:37] VITALS: BP 117/73
--- NOTE | 2024-01-09 05:15 | NUR ---
SUMMARY: PT A/OX4, SPECIFIES NEEDS AND HAS BEEN PLEASANT T/O NOCTE. SHE DID HOWEVER REFUSE MEDS AND MAJORITY OF ASSESSMENT BUT ALLOWED VITALS TO BE TAKEN. SHE'S UP AD PILLO AND DENIED PAIN/COMPLAINTS. PT SLEPT MAJORITY OF NOCTE. PLACEMENT IS PENDING. VSS/AFEBRILE AND NO ACUTE CHANGES. WCTM AND REPORT TO DAY RN.
[2024-01-09 07:25] VITALS: BP 107/72
[2024-01-09 15:03] VITALS: BP 101/70
--- NOTE | 2024-01-09 17:48 | NUR ---
SHIFT SUMMARY: NO ACUTE EVENTS TO REPORT THIS SHIFT. PT A&O; CALM; UNCOOPERATIVE WITH MOST CARE; HOWEVER, DID ALLOW VITAL SIGNS TO BE TAKEN. PT REMAINS IN HER ROOM T/O SHIFT. AWAITING PLACEMENT. BED LOW & LOCKED; CALL LIGHT WITHIN REACH. WCTM.
[2024-01-09 19:36] VITALS: BP 110/87
[2024-01-10 03:44] VITALS: BP 107/78
[2024-01-10 07:39] VITALS: BP 109/81
--- NOTE | 2024-01-10 08:36 | NUR ---
Spiritual care delivered a Bible to the patient upon her request and engaged in uplifting conversation and received further request for guitar music, which I will attempt to work into the schedule.
[2024-01-10 15:22] VITALS: BP 110/73
--- NOTE | 2024-01-10 18:31 | NUR ---
SHIFT SUMMARY PT AxOx2-3. PT WAS QUITE RECLUSIVE THIS SHIFT, STAYING IN HER ROOM MOST OF THE DAY. SHE TOOK MANY NAPS TODAY AND DECLINED MOST OF HER MEALS. SHE REFUSED ALL MEDS. PT WAS UP TO USE BATHROOM AND DRINK WATER T/O THE SHIFT, BUT OTHERWISE KEPT TO HERSELF. PT IS CURRENTLY RESTING IN BED WITH CALL LIGHT IN REACH. DENIES ANY NEEDS AT THIS TIME.
[2024-01-10 19:47] VITALS: BP 115/78
[2024-01-11 02:59] VITALS: BP 105/74
--- NOTE | 2024-01-11 06:15 | NUR ---
SHift Summary pt alert and able to make needs known. Refused assesment last night. did not want medications. did not want anyone in her room. pt slept until about 1 am when she asked for sncks and refreshments. continued to refuse medications.
[2024-01-11 07:34] VITALS: BP 107/72
[2024-01-11 15:06] VITALS: BP 113/89
--- NOTE | 2024-01-11 16:43 | NUR ---
Patient wanted to go for a walk to the courtyard for some fresh air. We stood at the fountain briefly before she said she was ready to go back up to her room. Just before stepping into the elevator, the patient wandered to the exit to the parking lot, by the 1st floor visitor elevators. I followed behind her, stating that we weren't supposed to go out that way. SHe quickly continued, and I followed behind urging her to come back and at least sign the paper saying she's leaving ([employer] Paperwork). I also called the nurse to let her know, and she said she would call security for me. I continued to follow behind the patient until I was outside the cancer center then watched as she rounded the corner to where I could no longer see. I called the ACC to update the unit, and returned to the SCU.
--- NOTE | 2024-01-11 16:45 | NUR ---
PATIENT TAKEN OUTSIDE TO THE COURTYARD TO GET SOME FRESH AIR PER HER REQUEST. ON THE WAY BACK UP TO THE ROOM PATIENT RAN AWAY FROM THE CAMPUS RECRUITING COORDINATOR AND DOWN THE ROAD FROM THE HOSPITAL. [employer] POLICE CONTACTED WELL WELL HER GUARDIAN NATHANIEL AND DR. LIN NOTIFIED.
--- NOTE | 2024-01-11 17:00 | NUR ---
PATIENT ARRIVED BACK TO HER ROOM. MOBILE CRISIS UNIT AND GUARDIAN NOTIFIED THAT SHE WAS BACK AT THE HOSPITAL AND IS SAFE. PATIENT DENIES ANY PAIN OR INJURY.
[2024-01-11 19:10] VITALS: BP 105/75
[2024-01-12 02:28] VITALS: BP 103/70
[2024-01-12 07:44] VITALS: BP 102/77
--- NOTE | 2024-01-12 18:28 | NUR ---
PATIENT A/OX4 TODAY, VERY WITHDRAWN AND PACING IN HALLS. TEARFUL AT TIMES, UNWILLING TO TALK ABOUT WHAT SHE WAS FEELING. PATIENT REFUSING TO TAKE SCHEDULED MEDICATIONS. POOR INTAKE TODAY. DENIES ANY PAIN OR DISCOMFORT. SKIN INTACT.
[2024-01-12 19:52] VITALS: BP 114/75
--- NOTE | 2024-01-12 22:13 | NUR ---
PT REFUSED ASSESSMENT. WHEN I WALKED INTO ROOM SHE WAS LAYING ON HER SIDE IN BED, EYES OPEN IN NO APPARENT DISTRESS. SEEMED ANXIOUS, WITHDRAWN. REUSED TO PARTICIPATE WILLINGLY IN ANSWERING QUESTIONS.
[2024-01-13 03:04] VITALS: BP 100/74
[2024-01-13 07:24] VITALS: BP 109/75
--- NOTE | 2024-01-13 12:05 | NUR ---
PATIENT D/C'D TO HOME VIA [facility]. DC INSTRUCTIONS AND EDUCATION DISCUSSED WITH PATIENT AND COPY PROVIDED. RX MEDICATIONS FAXED TO [facility]. PATIENT DENIES ANY FURTHER QUESTIONS OR CONCERNS.
--- NOTE | 2024-01-14 13:19 | NUR ---
[facility] REQUESTED PT SEEN ON THE CORNER OF THE [address] BY [place] ON [facility] BY A OFF DUTY STAFF MEMBER, STATING THE PATIENT APPEARED TO BE IN A [place] STATE AND WAS CONCERNED FOR HER WELBEING WITH THE HEAT TODAY. [facility] NOTIFIED OF THIS AND REQUEST FOR THEM TO EVALUATE HER WAS MADE. THIS RN SPOKE WITH I[place], [employer] COUNSELOR FOR THIS. ATTEMPT TO NOTIFY ELBA ROQUE, UNABLE TO LEAVE MESSAGE HER INBOX WAS FULL.
== END 2024-01-13 12:05 | disposition home or self-care (01) | DRG 884 ==
LOC: ER 18:06 → MEDS 19:15 → BHU 19:15 → ER 19:15 → BHU 21:50 → MEDS 21:50 → ENPENDDIS 01-13 10:00 → MEDS 01-13 12:05
PROVIDERS: Family Medicine; ADMIT Internal Medicine
DX: F03.918 Unspecified dementia, unspecified severity, with other behavioral disturbance (principal); E44.0 Moderate protein-calorie malnutrition; Z68.1 Body mass index [BMI] 19.9 or less, adult; G93.49 Other encephalopathy; F03.92 Unspecified dementia, unspecified severity, with psychotic disturbance; F20.9 Schizophrenia, unspecified; E86.0 Dehydration; F03.911 Unspecified dementia, unspecified severity, with agitation; F43.10 Post-traumatic stress disorder, unspecified; B18.2 Chronic viral hepatitis C; F15.10 Other stimulant abuse, uncomplicated; A60.00 Herpesviral infection of urogenital system, unspecified; Z74.1 Need for assistance with personal care; Z59.811 Housing instability, housed, with risk of homelessness; Z59.7 Insufficient social insurance and welfare support; Z91.148 Patient's other noncompliance with medication regimen for other reason; Z88.2 Allergy status to sulfonamides; Z87.891 Personal history of nicotine dependence
CPT/HCPCS: 36415; 70450; 80053; 85025; 86015; 99285; A9270

== ENCOUNTER → 2024-01-16 | Emergency (ER) | payer OTHER ==
[~2024-01-16] VITALS: Ht 165.1 cm; Wt 59.0 kg
[2024-01-16 23:00] VITALS: BP 136/74
== END ==
LOC: ER 10:18
DX: L03.211 Cellulitis of face (principal); E86.0 Dehydration; F03.90 Unspecified dementia, unspecified severity, without behavioral disturbance, psychotic disturbance, mood disturbance, and anxiety; Z79.899 Other long term (current) drug therapy; Z88.2 Allergy status to sulfonamides; Z87.891 Personal history of nicotine dependence

== ENCOUNTER → 2024-03-21 | Outpatient (CLI) | payer OTHER ==
[2024-03-21 08:21] LABS: Source, Urine Clean Catch
[2024-03-21 10:58] LABS: Appearance, Urine Turbid (Clear); Blood, Urine 1+ (Neg); Color, Urine Amber (P-Yellow); Glucose Qualitative, Urine Neg (Neg); Ketones, Urine 2+ (Neg); Leukocyte Esterase, Urine Neg (Neg); Nitrite, Urine Neg (Neg); Protein, Urine 2+ (Neg); Urobilinogen, Urine 2+ (Normal)
[2024-03-21 11:19] LABS: Bilirubin, Urine 1+ (Neg)
[2024-03-21 11:21] LABS: Amorphous Heavy (0-Heavy); Bacteria Rare /hpf; Squamous Epithelial Cells Mod /hpf (Few)
[2024-03-21 11:22] LABS: Calcium Oxalate Crystals Few /hpf; Red Blood Cells, Urine 0-2 /hpf (0-2); White Blood Cells, Urine 0-2 /hpf (0-5)
== END ==
LOC: LAB SHORT 07:40 → LAB 07:40
PROVIDERS: Nurse Practitioner Family
DX: N39.0 Urinary tract infection, site not specified (principal)
CPT/HCPCS: 81001

== ENCOUNTER 2024-05-07 13:07 | Emergency (ER) | payer OTHER ==
[~2024-05-07] VITALS: Ht 167.6 cm; Wt 81.7 kg
[2024-05-07] MEDS ORDERED: OLANZapine 10 MG Vial IM ONE (14:05)
[2024-05-07] MEDS ORDERED: QUEtiapine Fumarate 300 MG Tab PO ONE (14:10)
[2024-05-07] MEDS ORDERED: QUET300 PO (15:18)
[2024-05-07 17:16] LABS: BASOPHILS ABSOLUTE AUTO 0.05 K/mm3 (0.00-0.23); BASOPHILS PERCENT AUTO 1 % (0-2); EOSINOPHILS ABSOLUTE AUTO 0.02 K/mm3 (0.00-0.68); EOSINOPHILS PERCENT AUTO 0 % (0-6); Hematocrit 40.2 % (33.0-51.0); Hemoglobin 13.8 g/dL (11.5-16.0); IMMATURE GRAN ABSOLUTE AUTO 0.01 K/mm3 (0.00-0.10); IMMATURE GRAN PERCENT AUTO 0 % (0-1); LYMPHOCYTES ABSOLUTE AUTO 2.08 K/mm3 (0.84-5.20); LYMPHOCYTES PERCENT AUTO 28 % (21-46); MONOCYTES ABSOLUTE AUTO 0.32 K/mm3 (0.16-1.47); MONOCYTES PERCENT AUTO 4 % (4-13); Mean Corpuscular HGB 29.2 pg (26.0-34.0); Mean Corpuscular HGB Conc 34.3 g/dL (31.5-36.5); Mean Corpuscular Volume 85 fL (80-100); Mean Platelet Volume 8.4 fL (9.1-12.4); NEUTROPHILS ABSOLUTE AUTO 4.91 K/mm3 (1.96-9.15); NEUTROPHILS PERCENT AUTO 67 % (41-73); Platelet Count 337 K/mm3 (150-400); RDW Coefficient Variation 12.7 % (11.7-14.2); RDW Standard Deviation 39.3 fL (35.1-46.3); Red Blood Cell Count 4.72 M/mm3 (3.80-5.20); White Blood Cell Count 7.39 K/mm3 (4.00-11.30)
[2024-05-07 17:41] LABS: Albumin, Blood 4.2 g/dL (3.4-5.0); Albumin/Globulin Ratio 1.2 (0.8-1.8); Bilirubin, Total 0.7 mg/dL (0.1-1.0); Bun/Creatinine Ratio 27.7 (12.0-20.0); Calcium, Blood 9.8 mg/dL (8.5-10.1); Creatinine, Blood 0.65 mg/dL (0.40-1.00); Globulin, Blood 3.6 g/dL (2.2-4.0); Potassium, Blood 3.8 mmol/L (3.5-5.5); Total Protein, Blood 7.8 g/dL (6.4-8.2)
[2024-05-07] MEDS ORDERED: APHEN325 M1 (18:09)
[2024-05-07] MEDS ORDERED: BISA10S (18:10)
[2024-05-07 19:58] LABS: Source, Urine Voided
[2024-05-07 20:04] LABS: Appearance, Urine Hazy (Clear); Bilirubin, Urine Neg (Neg); Blood, Urine Neg (Neg); Color, Urine Yellow (P-Yellow); Glucose Qualitative, Urine Neg (Neg); Ketones, Urine Neg (Neg); Leukocyte Esterase, Urine 3+ (Neg); Nitrite, Urine Neg (Neg); Protein, Urine Neg (Neg); Specific Gravity, Urine 1.025 (1.003-1.022); Urobilinogen, Urine NORM (Normal)
[2024-05-07 20:17] LABS: Bacteria Many /hpf; Red Blood Cells, Urine Not Seen /hpf (0-2); Squamous Epithelial Cells Mod /hpf (Few)
[2024-05-07 20:33] LABS: U Amphetamine Screen Not Detected; U Barbituate Screen Not Detected; U Benzodiazapine Screen Not Detected; U Buprenorphine Screen Not Detected; U Cannabinoids Screen Not Detected; U Cocaine Screen Not Detected; U Methadone Screen Not Detected; U Methamphetamine Screen Not Detected; U Opiates Screen Not Detected; U Oxycodone Screen Not Detected; U Phencyclidine Screen Not Detected
[2024-05-08 06:12] VITALS: BP 108/77
== END 2024-05-08 14:47 | disposition home or self-care (01) ==
LOC: ER 13:07
PROVIDERS: Emergency Medicine
DX: R45.1 Restlessness and agitation (principal); F43.10 Post-traumatic stress disorder, unspecified; Z87.891 Personal history of nicotine dependence; Z79.899 Other long term (current) drug therapy; Z88.2 Allergy status to sulfonamides; Z91.018 Allergy to other foods
CPT/HCPCS: 80053; 81001; 81025; 85025; A9270

== ENCOUNTER 2024-05-22 14:47 | Emergency (ER) | payer OTHER ==
[~2024-05-22] VITALS: Ht 172.7 cm; Wt 81.7 kg
[~2024-05-22 14:47] MED LIST changes: +APHEN325 M1; +BANOPHEN25 MG PO; +BISA10S; +QUET300 PO
[2024-05-22 16:02] LABS: Source, Urine Voided
[2024-05-22 16:15] LABS: BASOPHILS ABSOLUTE AUTO 0.05 K/mm3 (0.00-0.23); BASOPHILS PERCENT AUTO 1 % (0-2); EOSINOPHILS ABSOLUTE AUTO 0.05 K/mm3 (0.00-0.68); EOSINOPHILS PERCENT AUTO 1 % (0-6); Hemoglobin 13.5 g/dL (11.5-16.0); IMMATURE GRAN PERCENT AUTO 0 % (0-1); LYMPHOCYTES ABSOLUTE AUTO 1.74 K/mm3 (0.84-5.20); LYMPHOCYTES PERCENT AUTO 26 % (21-46); MONOCYTES ABSOLUTE AUTO 0.45 K/mm3 (0.16-1.47); MONOCYTES PERCENT AUTO 7 % (4-13); Mean Corpuscular HGB 28.7 pg (26.0-34.0); Mean Corpuscular HGB Conc 32.9 g/dL (31.5-36.5); Mean Corpuscular Volume 87 fL (80-100); NEUTROPHILS PERCENT AUTO 66 % (41-73); Platelet Count 423 K/mm3 (150-400); RDW Coefficient Variation 13.4 % (11.7-14.2); RDW Standard Deviation 43.2 fL (35.1-46.3); Red Blood Cell Count 4.71 M/mm3 (3.80-5.20); White Blood Cell Count 6.79 K/mm3 (4.00-11.30)
[2024-05-22 16:16] LABS: Appearance, Urine Clear (Clear); Bilirubin, Urine Neg (Neg); Blood, Urine Neg (Neg); Color, Urine Yellow (P-Yellow); Glucose Qualitative, Urine Neg (Neg); Ketones, Urine Neg (Neg); Leukocyte Esterase, Urine 1+ (Neg); Nitrite, Urine Neg (Neg); Protein, Urine Neg (Neg); Urobilinogen, Urine NORM (Normal)
[2024-05-22 16:24] LABS: Bacteria Rare /hpf; Red Blood Cells, Urine 0-2 /hpf (0-2); Squamous Epithelial Cells Rare /hpf (Few)
[2024-05-22 16:27] LABS: U Amphetamine Screen Not Detected; U Barbituate Screen Not Detected; U Benzodiazapine Screen Not Detected; U Buprenorphine Screen Not Detected; U Cannabinoids Screen Not Detected; U Cocaine Screen Not Detected; U Methadone Screen Not Detected; U Methamphetamine Screen Not Detected; U Opiates Screen Not Detected; U Oxycodone Screen Not Detected; U Phencyclidine Screen Not Detected
[2024-05-22 16:40] LABS: Salicylate <1.7 mg/dL (2.8-20.0)
[2024-05-22 16:46] LABS: Alanine Aminotransfer (ALT/SGP 139 U/L (12-78); Albumin, Blood 4.1 g/dL (3.4-5.0); Albumin/Globulin Ratio 1.1 (0.8-1.8); Alk Phos 118 U/L (50-136); Anion Gap 10 mmol/L (3-11); Aspartate Aminotrans (AST/SGOT 96 U/L (12-37); Bilirubin, Total 0.2 mg/dL (0.1-1.0); Blood Urea Nitrogen 12 mg/dL (8-24); Bun/Creatinine Ratio 20.5 (12.0-20.0); CO2, Blood 23 mmol/L (21-32); Calcium, Blood 9.1 mg/dL (8.5-10.1); Chloride, Blood 107 mmol/L (98-108); Creatinine, Blood 0.58 mg/dL (0.40-1.00); Ethanol (Alcohol), Blood, Med <3 mg/dL; Globulin, Blood 3.9 g/dL (2.2-4.0); Glomerular Filtration Rate 108 (60-); Glucose, Blood 101 mg/dL (70-99); Potassium, Blood 4.2 mmol/L (3.5-5.5); Sodium, Blood 136 mmol/L (136-145)
[2024-05-22 16:47] LABS: Acetaminophen, Random <2.0 ug/mL (10.0-30.0)
[2024-05-22 17:00] VITALS: BP 128/86
[2024-05-22] MEDS ORDERED: QUEtiapine Fumarate 300 MG Tab PO SCH (21:00)
[2024-05-22] MEDS ORDERED: QUEtiapine Fumarate 200 MG Tab PO SCH (21:00)
== END 2024-05-22 17:41 | disposition home or self-care (01) ==
LOC: ER 14:47
PROVIDERS: Emergency Medicine
DX: R45.1 Restlessness and agitation (principal); F43.10 Post-traumatic stress disorder, unspecified; Z87.891 Personal history of nicotine dependence; Z79.899 Other long term (current) drug therapy; Z88.2 Allergy status to sulfonamides; Z91.018 Allergy to other foods
CPT/HCPCS: 36415; 80053; 80320; 81001; 81025; 85025; 87077; 87086; 87186; 93005; 93010; 99285-25; G0480

== ENCOUNTER 2024-05-24 15:09 | Emergency (ER) | payer OTHER ==
[~2024-05-24] VITALS: Ht 162.6 cm; Wt 65.3 kg
[2024-05-24 15:19] VITALS: BP 143/94
[2024-05-24] MEDS ORDERED: QUEtiapine Fumarate 50 MG TAB PO ONE (16:35)
[2024-05-24] MEDS ORDERED: QUETIAPINE FUMA50 M2 PO (16:36)
== END 2024-05-24 16:51 | disposition home or self-care (01) ==
LOC: ER 15:09
DX: F20.9 Schizophrenia, unspecified (principal); R45.6 Violent behavior; F43.10 Post-traumatic stress disorder, unspecified; Z87.891 Personal history of nicotine dependence; Z79.899 Other long term (current) drug therapy; Z88.2 Allergy status to sulfonamides; Z91.018 Allergy to other foods
CPT/HCPCS: 99285; A9270

== ENCOUNTER 2024-05-24 18:24 | Emergency (ER) | payer OTHER ==
[~2024-05-24] VITALS: Ht 172.7 cm; Wt 59.0 kg
[~2024-05-24 18:24] MED LIST changes: +QUETIAPINE FUMA50 M2 PO
[2024-05-24 19:02] VITALS: BP 109/68
[2024-05-24] MEDS ORDERED: Haloperidol Lactate Inj. 5 MG/ML Injection IM ONE (22:35)
== END 2024-05-24 23:12 | disposition home or self-care (01) ==
LOC: ER 18:24
DX: R45.6 Violent behavior (principal); F43.10 Post-traumatic stress disorder, unspecified; Z91.199 Patient's noncompliance with other medical treatment and regimen due to unspecified reason; Z87.891 Personal history of nicotine dependence; Z79.899 Other long term (current) drug therapy; Z88.2 Allergy status to sulfonamides; Z91.018 Allergy to other foods
CPT/HCPCS: 99283

== ENCOUNTER 2024-07-29 23:33 | Observation (INO) | payer OTHER ==
[~2024-07-29] VITALS: Ht 167.6 cm; Wt 56.5 kg
[2024-07-30 03:16] LABS: BASOPHILS ABSOLUTE AUTO 0.03 K/mm3 (0.00-0.23); BASOPHILS PERCENT AUTO 0 % (0-2); EOSINOPHILS ABSOLUTE AUTO 0.05 K/mm3 (0.00-0.68); EOSINOPHILS PERCENT AUTO 1 % (0-6); Hematocrit 43.8 % (33.0-51.0); Hemoglobin 14.2 g/dL (11.5-16.0); IMMATURE GRAN ABSOLUTE AUTO 0.03 K/mm3 (0.00-0.10); IMMATURE GRAN PERCENT AUTO 0 % (0-1); LYMPHOCYTES ABSOLUTE AUTO 1.57 K/mm3 (0.84-5.20); LYMPHOCYTES PERCENT AUTO 21 % (21-46); MONOCYTES ABSOLUTE AUTO 0.77 K/mm3 (0.16-1.47); MONOCYTES PERCENT AUTO 10 % (4-13); Mean Corpuscular HGB 29.6 pg (26.0-34.0); Mean Corpuscular HGB Conc 32.4 g/dL (31.5-36.5); Mean Corpuscular Volume 91 fL (80-100); Mean Platelet Volume 8.7 fL (9.1-12.4); NEUTROPHILS ABSOLUTE AUTO 4.92 K/mm3 (1.96-9.15); NEUTROPHILS PERCENT AUTO 67 % (41-73); Platelet Count 399 K/mm3 (150-400); RDW Coefficient Variation 13.8 % (11.7-14.2); RDW Standard Deviation 45.8 fL (35.1-46.3); Red Blood Cell Count 4.79 M/mm3 (3.80-5.20); White Blood Cell Count 7.37 K/mm3 (4.00-11.30)
[2024-07-30 03:36] LABS: Albumin, Blood 3.2 g/dL (3.4-5.0); Albumin/Globulin Ratio 0.9 (0.8-1.8); Bilirubin, Total 0.4 mg/dL (0.1-1.0); Calcium, Blood 9.3 mg/dL (8.5-10.1); Creatinine, Blood 0.7 mg/dL (0.40-1.00); Globulin, Blood 3.7 g/dL (2.2-4.0); Magnesium, Blood 1.9 mg/dL (1.6-2.4); Potassium, Blood 3.7 mmol/L (3.5-5.5); Total Protein, Blood 6.9 g/dL (6.4-8.2)
[2024-07-30] MEDS ORDERED: QUEtiapine Fumarate 50 MG TAB PO PRN (12:05)
[2024-07-30] MEDS ORDERED: OLANZapine 10 MG Vial IM PRN (12:05)
[2024-07-30 13:38] LABS: Source, Urine Clean Catch
[2024-07-30 14:05] LABS: Appearance, Urine Clear (Clear); Bilirubin, Urine Neg (Neg); Blood, Urine Neg (Neg); Color, Urine Yellow (P-Yellow); Glucose Qualitative, Urine Neg (Neg); Ketones, Urine Neg (Neg); Leukocyte Esterase, Urine Neg (Neg); Nitrite, Urine Neg (Neg); Protein, Urine 2+ (Neg); Specific Gravity, Urine 1.025 (1.003-1.022); Urobilinogen, Urine 2+ (Normal)
[2024-07-30 14:16] LABS: Red Blood Cells, Urine 0-2 /hpf (0-2)
[2024-07-30 14:17] LABS: Bacteria Mod /hpf; Squamous Epithelial Cells Few /hpf (Few)
[2024-07-30 14:19] LABS: U Amphetamine Screen Not Detected; U Barbituate Screen Not Detected; U Benzodiazapine Screen Not Detected; U Buprenorphine Screen Not Detected; U Cannabinoids Screen Not Detected; U Cocaine Screen Not Detected; U Methadone Screen Not Detected; U Methamphetamine Screen Not Detected; U Opiates Screen Not Detected; U Oxycodone Screen Not Detected; U Phencyclidine Screen Not Detected
[2024-07-30] MEDS ORDERED: QUEtiapine Fumarate 300 MG Tab PO SCH (21:00)
[2024-07-31] MEDS ORDERED: FLU VACC TS2024-25(6MOS UP)/PF 45 MCG/0.5 ML SYRINGE IM SCH (18:45)
[2024-07-31 21:57] VITALS: BP 115/80
--- NOTE | 2024-07-31 22:05 | NUR ---
ADMIT NOTE 54 YR OLD FEMALE ADMITTED TO FLOOR FROM THE ED WITH DX OF DEMENTIA AND BEHAVIOR ISSUES. UP WITH ASSIST FROM GURNEY TO BED. RIGHT FOOT BLEEDING, ED RN REPORTED "BLISTER" OPENED AND WAS BLEEDING. SEE PICS. AREA CLEANSED AND DRESSING APPLIED. ORIENTED TO SELF. ORIENTED TO USE OF CALL LIGHT AND BED CONTROL. RAILS UP AND CALL LIGHT IN REACH
--- NOTE | 2024-08-01 05:44 | NUR ---
PRACTICAL NURSE CLINICAL COORDINATOR SUMMARY VSS. WAS ADMITTED EARLIER IN THE SHIFT WITH DX OF DEMENTIA WITH BEHAVIORAL ISSUES. ABLE TO AMBULATE WITH ASSIST. NOTED BLEEDING FROM FOOT, CLEANED AND DRESSING APPLIED. SEE PIC IN CHART. ALERT TO SELF, INTERMITTENT CALLING OUT, REFUSED TO DISCUSS HX OR MEDICATIONS SHE TAKES. WILL HAVE AM SHIFT FOLLOW UP WITH THIS. HAS BEEN RESTING QUIETLY THROUGHOUT SHIFT WITH FEW INTERRUPTIONS. ORIENTED TO USE OF CALL LIGHT, BED ALARM ON, CALL LIGHT IN REACH, RAILS UP X 2 AND BED IN LOW POSITION FOR SAFETY. WILL CONTINUE TO MONITOR
[2024-08-01 08:16] VITALS: BP 101/62
[2024-08-01] MEDS ORDERED: Enoxaparin 40 MG/0.4 ML SYR SC SCH (09:00)
[2024-08-01 17:08] VITALS: BP 98/62
--- NOTE | 2024-08-01 20:09 | NUR ---
SHIFT SUMMARY- PT ALERT TO SELF. SHE HAS BEEN WITHDRAWN AND QUIET T/O THE SHIFT. AROUND 1700 SHE BECAME AGGITATED AND CAME OUT OF HER ROOM, CONFUSED AND IRRITABLE. STAFF REDIRECTED HER TO HER ROOM. PT IS A HIGH FALL RISK R/T THE FALL SHE HAD IN THE SHOWER IN THE ED. PT WAS UNWILLING TO TALK TO THIS RN, ANNEALER HELPER WAS ABLE TO GIVE HER PRN MEDICATION, THAT SEEMED TO HELP A LOT. PT IN BED, APPEARS CALM AT THE TIME OF BEDSIDE REPORT WITH NIGHT RN. NO S&S OF DISTRESS NOTED.
[2024-08-02 05:03] VITALS: BP 118/84
--- NOTE | 2024-08-02 06:26 | NUR ---
AAAO TO SELF. PT WAS UNWILLING TO TAKE HS MEDS FROM THIS RN BUT WITH 2ND APPROACH FROM ANOTHER RN PT TOOK MEDS. BEDDING AND BRIEFS CHANGED WITH STRONG SUGGESTION AND REINFORCEMENT X2. PT IS INCT. OF URINE AND BM INTERMITENTLY. CASE MANAGEMENT IS WORKING WITH PT'S GUARDIAN ON PLACEMENT,
--- NOTE | 2024-08-02 09:53 | NUR ---
DR ALEXANDER ROUNDED ON PATIENT, NO INTERACTION TODAY, WILL NOT OPEN EYES TO VOICE OR TOUCH, BED ALARM
[2024-08-02 15:35] VITALS: BP 99/55
--- NOTE | 2024-08-02 17:52 | NUR ---
NO INTERACTION TODAY, PATIENT HAS ONLY VERBALIZED "NO", IMPULSIVE OUT OF BED, BED/CHAIR ALARM IN USE, REFUSED MEDICATIONS AND LABS, NO ACUTE CHANGES, CALL LIGHT WITH IN REACH, WILL RELAY TO PM RN
--- NOTE | 2024-08-03 05:46 | NUR ---
PT IS UNCOOPERATIVE, LIMITED ASSESSMENT. REFUSED VS AND LABS THIS AM. THREW THINGS AROUND HER ROOM WHEN AGITATED WITH STAFF FOR ADMIN MEDS AND DRY BRIEFS. PT ONLY YELLS DIFFERING VOLUMES OF NO.
[2024-08-03 07:11] VITALS: BP 99/72
[2024-08-03 14:36] VITALS: BP 109/58
--- NOTE | 2024-08-03 17:45 | NUR ---
SHIFT SUMMARY PATIENT RESPONDS TO VERBAL STIMULI BY OPENING EYES. DOES NOT CONVERSE WITH STAFF MEMBERS, MINIMALLY VOCAL. STATES 1-2 WORD SENTENCES. NO PIVE ORDER RECIEVED FROM DR. YOUNG AND PATIENT REFUSING LAB DRAWS. HAD MEETING WITH MANAGER PROGRAMMING AND JULEE CURIEL FOR PLACEMENT THIS MORNING VIA ZOOM. DRESSING TO RIGHT HEAL CHANGED TODAY. TRIED MULTIPLE TIMES TO RECONCILE PATIENT'S HOME MEDICATION LIST. [facility] LISTED HOME PHARMACY, HAS NOT HAD A PRESCRIPTION FILLED SINCE 2021. CALLED PATIENT'S LEGAL GUARDIAN, NATHANIEL, WHO DID NOT HAVE AN UPDATED MEDICATION LIST EITHER. CALLED [facility], WHERE PATIENT PREVIOUSLY RESIDED ABOUT 2 MONTHS AGO, PER STAFF AT [facility]. THEY WERE ABLE TO STATE HER SCHEDULED MEDICATION CONSISTED OF ONLY QUITIEPINE 100MG DAILY AND OLONZAPINE 15MG DAILY. MEDICATION LIST UPDATED IN COMPUTER SYSTEM. NO OTHER CONCERNS AT THIS TIME.
[2024-08-03] MEDS ORDERED: QUETIAPINE FUM PO (18:07)
[2024-08-03] MEDS ORDERED: Zyprexa15 MG PO (18:08)
[2024-08-03] MEDS ORDERED: Rivaroxaban 10 MG Tab PO SCH (21:00)
--- NOTE | 2024-08-04 04:37 | NUR ---
SHIFT SUMMARY NOC PT A/O TO SELF. UNINTERESTED AND REFUSING ALL CARE, RX, AND ASSESSMENTS. PT ONLY USING ONE WORD RESPONSES TO VERBAL CUES. PT HAS BEEN LETHARGIC AND SLEEPING FOR ENTIRETY OF SHIFT. PT HAS STAPLE ON BACK OF HEAD FROM FALL WHILE IN ED. PT CURRENTLY RESTING WITH BED ALARM ON, BED IN LOWEST POSITION, AND CALL LIGHT WITHIN REACH.
--- NOTE | 2024-08-04 18:31 | NUR ---
SHIFT SUMMARY PATIENT ALERT BUT CONTINUES TO REFUSE TO ANSWER QUESTIONS. CONTINUES WIHT 1-2 WORD SENTENCES, ABLE TO FOLLOW COMMANDS. WAS ABLE TO SHOWER WITH STAFF SUPERVISION THIS AFTERNOON AND USE COMMODE WITH VERBAL CUES. DRESSING TO RIGHT HEAL CHANGED TODAY AFTER SHOWER. PATIENT HAS ALSO BEEN ABLE TO WALK THROUGH THE HALLWAY WITH SUPERVISION. NO OTHER CONCERNS AT THIS TIME.
--- NOTE | 2024-08-05 06:02 | NUR ---
SHIFT SUMMARY NOC PT A/O TO SELF. REFUSIN VS AND RX. PT ALLOWED SHIFT ASSESSMENT TO BE COMPLETED. PT ONLY REQUESTING SU CRACKERS AND LIQUIDS TO DRINK. PT USING BATHROOM INDEPENDENTLY, BUT HAS NOT LEFT ROOM DURING SHIFT. PT R VIVIANA HAS DRESSING IN PLACE PER ORDER C/D/I. PT HAS GUARDIAN AND IS LOOKING FOR PLACEMENT IN LTC FACILITY. PT CURRENTLY RESTING WITH BED IN LOWEST POSITION, AND CALL LIGHT WITHIN REACH.
--- NOTE | 2024-08-05 17:02 | NUR ---
SHIFT SUMMARY PATIENT ALERT AND CONTINUES TO NOT REPSOND TO ORIENTATION QUESTIONS. MORE VERBAL THIS SHIFT, BUT CONTINUES TO NOT VOCALIZE NEEDS. NEEDS ENCOURAGEMENT TO USE BATHROOM OR WILL BE INCONTINENT AND NOT GET OUT OF BED. DRESSING TO RIGHT HEAL REMAINS INTACT. NO OTHER CONCERNS AT THIS TIME.
--- NOTE | 2024-08-06 04:12 | NUR ---
Pt refused vitals
--- NOTE | 2024-08-06 05:00 | NUR ---
SHIFT SUMMARY NOC PT A/O TO SELF. REFUSING VS AND RX, BUT CONSENTED TO SHIFT ASSESSMENT. PT ONLY REQUESTED CRACKERS AND LIQUIDS. PT USING BSC INDEPDENTLY, BUT REQUIRES VERBAL CUE TO DO SO. PT R HEEL BLISTER HAS MEPILEX DRESSING IN PLACE C/D/I. STAPLE ON BACK OF HEAD FROM FALL WHILE IN ED. PT HAS GUARDIANSHIP IN PLACE WELL STONEWORKING SANDER ATTEMPTING TO FIND LTC FACITLITY FOR PLACEMENT. PT CURRENTLY RESTING WITH BED IN LOWEST POSITION, AND CALL LIGHT WITHIN REACH.
--- NOTE | 2024-08-06 13:59 | NUR ---
PT REFUSING AM ASSESSMENT AND MEDICATIONS
--- NOTE | 2024-08-06 17:22 | NUR ---
SHIFT SUMMARY: PT ORIENTED TO SELF ONLY. UNCOOPERATIVE AND REFUSED AM ASSESSMENT. PT BECAME VERY ANXIOUS THIS AM AND SUCCESSFULLY ATTEMPTED OUT OF KUMAR 4 TIMES. SECURITY WAS CALLED AND THIS RN WAS ABLE TO GIVE IM ZYPREXA. PT SLEPT PEACEFULLY FOR SEVERAL HOURS AFTER IM DOSE. STAFF FROM [facility] ARRIVED THIS SHIFT. THIS RN ANSWERED QUESTIONS TO THE BEST OF MY ABILITY FOR STAFF AND PATIENT. PT INDEPEDENTLY WALKS HALLS ASKING FOR SNACKS SEVERAL TIMES. DRESSING TO RIGHT HEEL REMAINS C/D/I. CALL LIGHT IN REACH.
[2024-08-06 19:15] VITALS: BP 100/61
--- NOTE | 2024-08-07 05:13 | NUR ---
SHIFT SUMMARY: Pt is admitted for dementia with behaviors and is a full code. Is alert and able to make needs known. ADLs have been IND. denies pain or discomfort when asked. Refused HS medications stating those meds don t help. when asked what she meant by that, she laid down in bed closed her eyes and did not respond to further questions for about 20 min. At that point she requested a snack.
[2024-08-07 07:56] VITALS: BP 108/76
[2024-08-07 15:16] VITALS: BP 154/82
--- NOTE | 2024-08-07 16:49 | NUR ---
SHIFT SUMMARY PT AWAKE AT START OF SHIFT, UP WALKING HALLS MOST OF THE DAY. PT HAS BEEN PLEASANT AND SOMEWHAT CO-OP. DIFFICULT TO ASSESS, PT DOESN'T ANS QUESTIONS. HAS EATEN ALOT OF CRACKERS AND PEANUT BUTTER AND DRANK 5 DENNYS ENSURES. INDEPENDENT TO BTHRM. SENIOR COST ESTIMATOR WAS ABLE TO GET PT TO TAKE A SHOWER TODAY. PT HAS BEEN CO-OP IN GOING FOR WALKS IN HALLS, OUT OF SCU. NO C/O PAIN. NO S/SX'S OF DISTRESS NOTED. MEDICALLY STABLE, WAITING PLACEMENT.
--- NOTE | 2024-08-08 03:48 | NUR ---
SHIFT SUMMARY PT ALERT WITH CONFUSION. SHE REFUSES TO BE TOUCHED AND JUST SAYS NO LEAVE ME ALONE WHEN ASKED. SHE REFUSED HER VS AND MEDS THIS SHIFT. NO S/S PAIN HAS BEEN SLEEPING MOST OF THIS SHIFT. HAS A BLISTER TO HER RT HEEL THAT IS WRAPPED. SHE AMBULATES IN HER ROOM AND THE HALLWAY AD PILLO. SHE HAS NO IV AT THIS TIME. SHES AWAITING PLACEMENT AT THIS TIME. SLEEPING WITH CALL LIGHT IN REACH. NO BEHAVIORS THIS SHIFT,
[2024-08-08 07:13] VITALS: BP 129/84
--- NOTE | 2024-08-08 08:34 | NUR ---
RN rounded with Dr. Gallego. No changes to care plan. Pt is moving independently adlib on the unit. No signs of behavioral disturbance.
[2024-08-08 14:50] VITALS: BP 117/84
--- NOTE | 2024-08-08 16:24 | NUR ---
WOUND CARE - RN COMPLETED WOUND CARE TO PT'S RIGHT HEEL BLISTER. THERE ARE TWO AREAS WITH SCABBING, BUT NEW GRANULATION TISSUE CAN BE SEEN. CLEANSED WITH DERMAL WOUND CLEAN UP PERSON, AND PATTED DRY, PLACED MEPILEX ON HEEL. PT TOLERATED PROCEDURE WELL.
--- NOTE | 2024-08-08 18:45 | NUR ---
NO ACUTE CHANGES THIS SHIFT. PT IS INDEPENDENT ADLIB ON THE SCU. WOUND CARE TO RIGHT HEEL BLISTER, MEPILEX IN PLACE. ROOM AIR. REGULAR DIET. NO IV ACCESS. AWAITING PLACEMENT. NO BEHAVIORAL AGGRESSION NOTED THIS SHIFT. HISTORY OF SCHIZOPHRENIA AND DEMENTIA WITH BEHAVIORAL DISTURBANCE. PT REFUSES MOST MEDICATIONS. PT ENJOYS TAKING WALKS SUPERVISED BY THE RN OR DECKHAND FISHING VESSEL AROUND THE MEDICAL UNIT.
[2024-08-08 19:07] VITALS: BP 116/76
--- NOTE | 2024-08-09 03:12 | NUR ---
pT UP PACING FLOOR, MULTIPLE SNACKS PROVIDED, PT ONLY SLEEPS AN HOUR OR TWO AT A TIME. REFUSED HS MEDS USUAL. WOUND RIGHT HEAL DRESSING CHANGED ON 08/08, NO BEHAVIOR OUTBURSTS THIS SHIFT. VS WNL.
[2024-08-09 03:34] VITALS: BP 115/76
[2024-08-09 07:38] VITALS: BP 107/72
[2024-08-09 14:22] VITALS: BP 108/78
--- NOTE | 2024-08-09 17:00 | NUR ---
SHIFT SUMMARY MS MAGAÑA HAS BEEN VERY ACTIVE TODAY, PACING THE HALLS FREQUENTLY, WALKING AROUND THE UNIT FREQUENTLY WITH AN ESCORT. EATING AND DRINKING WELL, LOTS OF SNACKS. IT IS DIFFICULT TO ASCERTAIN LEVEL OF ORIENTATION SHE HAS NOT ANSWERED ORIENTATION QUESTIONS. SHE SPEAKS TO ASK TO GO FOR A WALK OR HAVE PARTICULAR SNACKS BUT HAS NOT SPOKEN VERY MUCH TO ME ON OTHER TOPICS. SHE REFUSES TO WEAR SHOES OR SLIPPER SOCKS AND WALKS BAREFOOT. SHE SAID "NO" WHEN I ASKED HER TO BRUSH HER TEETH. SHE HAS NOT BEEN AGGITATED, JUST HIGH ACTIVITY.
[2024-08-09 19:14] VITALS: BP 113/78
[2024-08-10 02:33] VITALS: BP 117/80
[2024-08-10 08:11] VITALS: BP 114/70
--- NOTE | 2024-08-10 08:33 | NUR ---
PT FELL AT APPROX 0815 WHEN ATTEMPTING TO PUT ON SOCKS. PT REFUSED VITALS TO BE TAKEN, SHE IS WALKING THE HALLS AGGITATED AND REFUSING CARE.
--- NOTE | 2024-08-10 09:38 | NUR ---
ASKED PATIENT TO PUT SOCKS ON BEFORE AMBULATING THE HALLS. PATIENT FALLS PUTTING ON SOCKS THEN DECLINES ASSISTANCE UP AND POST FALL VITALS. RN NOTIFIED
--- NOTE | 2024-08-10 10:51 | NUR ---
THIS RN WALKED PT AROUND UNIT PER PT REQUEST. PT STILL REFUSING AN ASSESSMENT, VITALS, MEDS, OR ANY OTHER CARE. WILL CONTINUE TO MONITOR
[2024-08-10 16:26] VITALS: BP 116/70
--- NOTE | 2024-08-10 16:54 | NUR ---
SHIFT NOTE: PT AMBULATING THE HALLS T/O SHIFT. SHE HAS DENIED ALL CARE, ASSESSMENTS, AND MEDS. PT FELL THIS AM, DENIED POST FALL ASSESSMENT AND CARE. PT FELL ON RIGHT HIP, SHE HAS RUBBED HER HIP SHE WALKS. GAIT IS STEADY WITH NO LIMP ASSESS POST FALL
[2024-08-10 19:34] VITALS: BP 110/73
[2024-08-11 03:25] VITALS: BP 109/73
--- NOTE | 2024-08-11 07:30 | NUR ---
PT REFUSING ALL ASSESSMENTS AND MEDICATIONS FROM THIS RN.
--- NOTE | 2024-08-11 07:30 | NUR ---
SHIFT SUMMARY AT START OF SHIFT, PT SLEEPING SOUNDLY. REFUSAL OF SCHEDULED MEDICATION. APPROX 0320, PT AWOKE AND ASKED FOR POPTARTS. PT GIVEN SNACK AND SITTING CALMLY IN HER ROOM.
--- NOTE | 2024-08-11 17:26 | NUR ---
SHIFT SUMMARY PATIENT PACING MOST OF SHIFT, WALKING IN HALLS WITH STAFF 25+ TIMES THIS SHIFT. REQUESTING MULTIPLE SNACKS, EATING WELL. DECLINES TO TAKE MEDICATION UNLESS GENTLY ENCOURAGED TO DO SO WITH SNACKS AFTERWARD. DECLINING TO SHOWER THIS SHIFT. HAD BM AT BS. REQUIRES PROMPTING MULTIPLE TIMES TO PERFORM HYGIENE AND TOILETING. CALL LIGHT IN REACH WHILE IN ROOM, AMBULATING SBA. NOT ABLE TO MAKE NEEDS KNOWN. CARES ONGOING.
[2024-08-11 19:11] VITALS: BP 110/70
--- NOTE | 2024-08-12 03:14 | NUR ---
SHIFT SUMMARY PT RESTING IN BED AT THE SHIFT CHANGE. COOPERATIVE WITH ASSESSMENT. PT REFUSED HS 300MG SERAQUEL PO TAB. PER PT STATEMENT "IT'S TOO BIG OF A DOSE." FOOD AND NUTRITION PROFESSOR NOTIFIED. NO ACUTE EVENTS DURING THIS SHIFT. PT DENIES PAIN AND DISCOMFORT. PT IN BED T/O THIS SHIFT. NO BEHAVIORS DURING THIS SHIFT. BED AT THE LOWEST POSITION, CALL LIGHT WITHIN REACH.
[2024-08-12 03:37] VITALS: BP 103/70
--- NOTE | 2024-08-12 17:56 | NUR ---
SHIFT SUMMARY PATIENT AMBULATING IN HALLS THIS SHIFT, NOT WILLING TO ANSWER ORIENTATION QUESTIONS. MULTIPLE REQUESTS FOR EXTRA FOOD THROUGHOUT SHIFT. UNWILLING TO HAVE VITALS DONE, UNWILLING TO SHOWER, UNWILLING TO ALLOW ASSESSMENT OF SKIN/FOOT WOUND. CALL LIGHT IN REACH, NOT ABLE TO MAKE NEEDS KNOWN. CARES ONGOING. ABLE TO USE BSC, NEEDS EXTENSIVE PROMPTING TO PERFORM HYGIENE.
[2024-08-12 20:01] VITALS: BP 111/74
--- NOTE | 2024-08-13 03:41 | NUR ---
SHIFT SUMMARY NO ACUTE EVENTS DURING THIS SHIFT. PT IS INDEPENDENT, WALKING AT THE [facility] HALLWAY AT HS. SNACKS PROVIDED AT HS. PT REFUSED HS SCHEDULED SEROQUEL 300MG. OFFERED PRN 50MG SEROQUEL FOR THE PT- REFUSED. NO BEHAVIORS, PT COOPERATIVE DURING THIS SHIFT. BED AT THE LOWEST POSITION,CALL LIGHT WITHIN REACH. PT IS ABLE TO MAKE HER NEEDS KNOWN.
[2024-08-13 05:25] VITALS: BP 112/74
--- NOTE | 2024-08-13 07:30 | NUR ---
ASSUMED CARE: PT RESTING QUIETLY AT THIS TIME. NO ACUTE NEEDS OR CONCERNS AT PRESENT.
--- NOTE | 2024-08-13 18:38 | NUR ---
SHIFT SUMMARY: PT HAS BEEN WALKING IN THE HALLS AND EATING SNACKS THROUGHOUT THE DAY. DENIES NEEDS OR CONCERNS. AWAITING PLACEMENT.
[2024-08-13 20:03] VITALS: BP 111/76
[2024-08-14 04:06] VITALS: BP 109/74
--- NOTE | 2024-08-14 06:05 | NUR ---
Shift Summary No acute changes, awaiting guardianship and placement. Pt refused nightly dose of seroquel. No episodes of agitation t/o the night, she was pleasant and cooperative. She did request crackers and cheese several times and walked the halls several times.
[2024-08-14 07:17] VITALS: BP 103/69
--- NOTE | 2024-08-14 17:47 | NUR ---
PT ORIENTED TO SELF AND PLACE. REFUSED VITALS AND WOUND CARE TO HEEL BLISTER. PT WALKED HALLWAY THROUGHOUT SHIFT. NO ACUTE CHANGES THIS SHIFT. OYSTER CULTURIST FROM [facility] IN ROOM WITH PATIENT TO DISCUSS POSSIBLE PLACEMENT THERE. PT REORIENTED, MOSTLY REDIRECTABLE.
[2024-08-14 20:05] VITALS: BP 136/80
--- NOTE | 2024-08-15 07:19 | NUR ---
Shift Summary Pt withdrawn this night, answered my questions only with vague grunts or a head shake for no. Refused nighttime Seroquel. No aggression or agitation. Pt walked the halls for the first 2 hours then slept well t/o the night.
[2024-08-15 07:41] VITALS: BP 99/60
--- NOTE | 2024-08-15 17:02 | NUR ---
SUMMARY PT DECLINES ALL CARES, PLEASANT THIS SHIFT. NO ACUTE CHANGES
--- NOTE | 2024-08-16 07:10 | NUR ---
SHIFT SUMMARY AT START OF SHIFT, PT PACING HALLWAY. PT PULLED OPEN DOORS AND STARTED WALKING BAREFOOT THROUGH THE HALLWAYS OUTSIDE OF THIS UNIT. THIS RN ASKED PT TO WAIT UNTIL SHIFT CHANGE WAS FINISHED, THEN SHE COULD GO FOR A WALK FOR SAFETY PURPOSES. DAY SHIFT RN TOOK PT FOR A WALK OUTSIDE OF UNIT. PT CONTINUES TO REFUSE ALL MEDICATIONS AND INTERVENTIONS. SHE IS SLEEPING PEACEFULLY IN HER BED.
--- NOTE | 2024-08-16 11:11 | NUR ---
PT DECLINES ALL CARES, NOTED ANGER THIS MORNING
--- NOTE | 2024-08-16 16:26 | NUR ---
SUMMARY PT IS PACING HALLWAY, WHEN ASK IF SHE IS NEEDS ANYTHING SHE RAISED VOICE "NO" PT APPEARS TO BE VERY AGITATED. WALKED WITH PT MULTIPLE TIMES OUTSIDE OF UNIT. PT DECLINED ALL MEALS TODAY.
--- NOTE | 2024-08-17 07:42 | NUR ---
PT CONTINUES TO REFUSE ALL MEDICATIONS AND INTERVENTIONS. PT WAS PACING THE HALLS AT START OF SHIFT. PER REPORT, PT HAD NOT EATEN ALL DAY. BARYTES GRINDER PUT FOOD OPTIONS ON HER BEDSIDE TABLE AND LEFT THEM THERE FOR HER. WHEN CHECKED ON, PT HAD EATEN ALL OF THE SNACKS AND DRANK THE ENSURE. WILL RELAY TO DAY SHIFT.
--- NOTE | 2024-08-17 12:46 | NUR ---
PATIENT HAS LEFT THE FLOOR AND THE HOSPITAL BUILDING MULTIPLE TIMES TODAY. SHE CANNOT BE PERSUADED TO STAY NOR CHANGE OUT OF HER WET SOCKS AND PANTS WHEN SHE RETURNS. PATIENT HAS EATEN BOTH BREAKFAST AND LUNCH. SHE REFUSES A SHOWER. SHE IS AGIATED WHEN SPOKEN TO BUT IS QUIET WHEN LEFT ALONE. SHE WALKS THE HALLS CONSTANTLY AND LIKE I SAID BEFORE, HAS LEFT THE FLOOR AND BUILDING MULTIPLE TIMES TODAY, NEVER EXCEEDING AN HOUR AT THIS POINT. LAST LEFT AT 12:43.
== END 2024-08-17 15:06 ==
LOC: ER 23:33 → ERHOLD 23:34 → MEDS 07-31 18:45 → ERHOLD 07-31 18:45 → ER 07-31 18:45 → ERHOLD 07-31 21:47 → MEDS 07-31 21:47
PROVIDERS: Student in an Organized Health Care Education/Training Program; ADMIT Internal Medicine
DX: F03.918 Unspecified dementia, unspecified severity, with other behavioral disturbance (principal); G93.40 Encephalopathy, unspecified; F43.10 Post-traumatic stress disorder, unspecified; R62.7 Adult failure to thrive; F25.9 Schizoaffective disorder, unspecified; Z88.2 Allergy status to sulfonamides; Z87.891 Personal history of nicotine dependence; Z79.899 Other long term (current) drug therapy
CPT/HCPCS: 12001; 51701; 70450; 80053; 81001; 82947; 83735; 85025; 87086; 93005; 93010; 96372; 96372-59; 99285; A9270; G0378

== ENCOUNTER → 2024-09-14 | Outpatient (CLI) | payer OTHER ==
[~2024-09-14] MED LIST changes: +QUETIAPINE FUM PO; +Zyprexa15 MG PO
[2024-09-14 17:43] LABS: Source, Urine Clean Catch
[2024-09-14 19:48] LABS: Bilirubin, Urine Neg (Neg); Blood, Urine Neg (Neg); Glucose Qualitative, Urine Neg (Neg); Ketones, Urine Neg (Neg); Leukocyte Esterase, Urine Neg (Neg); Nitrite, Urine Neg (Neg); Protein, Urine Neg (Neg); Urobilinogen, Urine NORM (Normal)
[2024-09-14 19:56] LABS: Appearance, Urine Clear (Clear); Color, Urine Pale Yellow (P-Yellow)
== END ==
LOC: LAB SHORT 17:33 → LAB 17:33
PROVIDERS: Nurse Practitioner Family
DX: N39.0 Urinary tract infection, site not specified (principal)
CPT/HCPCS: 81003

== ENCOUNTER → 2024-09-18 | Outpatient (CLI) | payer OTHER | END | disposition home or self-care (01) | LOC: LAB SHORT 16:30 → LAB 16:30 | DX: N39.0 Urinary tract infection, site not specified (principal) | CPT/HCPCS: 81025 ==

== ENCOUNTER 2024-11-14 16:35 | Emergency (ER) | payer OTHER ==
[~2024-11-14] VITALS: Ht 162.6 cm; Wt 82.1 kg
[~2024-11-14 16:35] MED LIST changes: +DULCOLAX STOOL100 M3 PO
[2024-11-14 22:50] VITALS: BP 123/96
== END 2024-11-14 22:50 | disposition home or self-care (01) ==
LOC: ER 16:35
DX: K62.3 Rectal prolapse (principal); F20.9 Schizophrenia, unspecified; F03.918 Unspecified dementia, unspecified severity, with other behavioral disturbance; F15.11 Other stimulant abuse, in remission; Z87.891 Personal history of nicotine dependence; Z88.2 Allergy status to sulfonamides; Z79.899 Other long term (current) drug therapy
CPT/HCPCS: 99283

== ENCOUNTER → 2025-01-14 | Outpatient (CLI) | payer OTHER | LOC: LAB 18:24 → LAB SHORT 18:24 | DX: N39.0 Urinary tract infection, site not specified (principal) ==

== ENCOUNTER 2025-03-06 19:18 | Emergency (ER) | payer OTHER ==
[~2025-03-06] VITALS: Ht 167.6 cm; Wt 81.7 kg
[2025-03-06 19:25] VITALS: BP 158/111
[2025-03-06 19:58] LABS: BASOPHILS ABSOLUTE AUTO 0.04 K/mm3 (0.00-0.23); BASOPHILS PERCENT AUTO 1 % (0-2); EOSINOPHILS ABSOLUTE AUTO 0.05 K/mm3 (0.00-0.68); EOSINOPHILS PERCENT AUTO 1 % (0-6); Hematocrit 41.6 % (33.0-51.0); Hemoglobin 13.9 g/dL (11.5-16.0); IMMATURE GRAN ABSOLUTE AUTO 0.02 K/mm3 (0.00-0.10); IMMATURE GRAN PERCENT AUTO 0 % (0-1); LYMPHOCYTES ABSOLUTE AUTO 2.46 K/mm3 (0.84-5.20); LYMPHOCYTES PERCENT AUTO 32 % (21-46); MONOCYTES ABSOLUTE AUTO 0.65 K/mm3 (0.16-1.47); MONOCYTES PERCENT AUTO 9 % (4-13); Mean Corpuscular HGB Conc 33.4 g/dL (31.5-36.5); Mean Corpuscular Volume 86 fL (80-100); NEUTROPHILS ABSOLUTE AUTO 4.46 K/mm3 (1.96-9.15); NEUTROPHILS PERCENT AUTO 58 % (41-73); NRBC ABSOLUTE 0.00 K/mm3 (0.00-0.02); NRBC Auto 0.0 /100 WBC (0.0-0.2); Platelet Count 436 K/mm3 (150-400); RDW Coefficient Variation 12.6 % (11.7-14.2); RDW Standard Deviation 39.6 fL (35.1-46.3)
[2025-03-06 20:40] LABS: Alanine Aminotransfer (ALT/SGP 33.0 U/L (12-78); Albumin, Blood 3.9 g/dL (3.4-5.0); Albumin/Globulin Ratio 0.8 (0.8-1.8); Anion Gap 7.0 mmol/L (3-11); Aspartate Aminotrans (AST/SGOT 48.0 U/L (12-37); Bilirubin, Total 0.3 mg/dL (0.1-1.0); Blood Urea Nitrogen 14.0 mg/dL (8-24); CO2, Blood 28.0 mmol/L (21-32); Calcium, Blood 9.0 mg/dL (8.5-10.1); Chloride, Blood 106.0 mmol/L (98-108); Creatinine, Blood 0.65 mg/dL (0.40-1.00); Globulin, Blood 4.7 g/dL (2.2-4.0); Glucose, Blood 94.0 mg/dL (70-99); Potassium, Blood 6.3 mmol/L (3.5-5.5); Sodium, Blood 135.0 mmol/L (136-145); Total Protein, Blood 8.6 g/dL (6.4-8.2)
[2025-03-06 21:06] LABS: Salicylate <1.7 mg/dL (2.8-20.0)
[2025-03-06 21:09] LABS: Acetaminophen, Random <2.0 ug/mL (10.0-30.0); Potassium, Blood 4.1 mmol/L (3.5-5.5)
[2025-03-06] MEDS ORDERED: DOCU100 PO (21:35)
[2025-03-06] MEDS ORDERED: Haldol 5 mg Tab5 MG PO (21:36)
[2025-03-06] MEDS ORDERED: QUET300 PO (21:36)
== END 2025-03-07 01:18 | disposition home or self-care (01) ==
LOC: ER 19:18
PROVIDERS: Student in an Organized Health Care Education/Training Program
DX: S31.110A Laceration without foreign body of abdominal wall, right upper quadrant without penetration into peritoneal cavity, initial encounter (principal); F03.918 Unspecified dementia, unspecified severity, with other behavioral disturbance; Z87.891 Personal history of nicotine dependence; Z88.2 Allergy status to sulfonamides; Z91.018 Allergy to other foods; Z79.899 Other long term (current) drug therapy; X78.1XXA Intentional self-harm by knife, initial encounter
CPT/HCPCS: 12001; 74177; 80053; 84132; 85025; 99285-25; G0480; Q9967

== ENCOUNTER → 2025-03-28 | Outpatient (CLI) | payer OTHER ==
[~2025-03-28] MED LIST changes: +DOCU100 PO; +Haldol 5 mg Tab5 MG PO
[2025-03-28 20:00] LABS: Bilirubin, Urine Neg (Neg); Color, Urine Yellow (P-Yellow); Glucose Qualitative, Urine Neg (Neg); Ketones, Urine Neg (Neg); Leukocyte Esterase, Urine Neg (Neg); Protein, Urine 1+ (Neg); Specific Gravity, Urine 1.025 (1.003-1.022); Urobilinogen, Urine NORM (Normal)
[2025-03-28 20:49] LABS: Red Blood Cells, Urine 0-2 /hpf (0-2); White Blood Cells, Urine 0-2 /hpf (0-5)
== END ==
LOC: LAB 17:13 → LAB SHORT 17:13
PROVIDERS: Nurse Practitioner Family
DX: N39.0 Urinary tract infection, site not specified (principal)
CPT/HCPCS: 81001

== ENCOUNTER 2025-03-30 04:12 | Observation (INO) | payer OTHER ==
[~2025-03-30] VITALS: Ht 162.6 cm; Wt 92.1 kg
[2025-03-30 04:16] VITALS: BP 137/104
[2025-03-30 04:59] LABS: Source, Urine Clean Catch
[2025-03-30 05:04] LABS: Bilirubin, Urine Neg (Neg); Glucose Qualitative, Urine Neg (Neg); Ketones, Urine Neg (Neg); Leukocyte Esterase, Urine 1+ (Neg); Protein, Urine 1+ (Neg); Specific Gravity, Urine 1.020 (1.003-1.022); Urobilinogen, Urine NORM (Normal)
[2025-03-30 05:25] LABS: Color, Urine Yellow (P-Yellow)
[2025-03-30 05:26] LABS: Red Blood Cells, Urine Not Seen /hpf (0-2); White Blood Cells, Urine 0-2 /hpf (0-5)
[2025-03-30 05:28] LABS: U Amphetamine Screen Not Detected; U Barbituate Screen Not Detected; U Benzodiazapine Screen Not Detected; U Buprenorphine Screen Not Detected; U Cannabinoids Screen Not Detected; U Cocaine Screen Not Detected; U Methadone Screen Not Detected; U Methamphetamine Screen Not Detected; U Opiates Screen Not Detected; U Oxycodone Screen Not Detected; U Phencyclidine Screen Not Detected
[2025-03-30 05:55] LABS: BASOPHILS ABSOLUTE AUTO 0.03 K/mm3 (0.00-0.23); BASOPHILS PERCENT AUTO 1 % (0-2); EOSINOPHILS ABSOLUTE AUTO 0.02 K/mm3 (0.00-0.68); EOSINOPHILS PERCENT AUTO 0 % (0-6); Hematocrit 42.0 % (33.0-51.0); Hemoglobin 13.8 g/dL (11.5-16.0); IMMATURE GRAN ABSOLUTE AUTO 0.01 K/mm3 (0.00-0.10); IMMATURE GRAN PERCENT AUTO 0 % (0-1); LYMPHOCYTES ABSOLUTE AUTO 1.47 K/mm3 (0.84-5.20); LYMPHOCYTES PERCENT AUTO 23 % (21-46); MONOCYTES ABSOLUTE AUTO 0.41 K/mm3 (0.16-1.47); MONOCYTES PERCENT AUTO 6 % (4-13); Mean Corpuscular HGB Conc 32.9 g/dL (31.5-36.5); Mean Corpuscular Volume 87 fL (80-100); NEUTROPHILS ABSOLUTE AUTO 4.57 K/mm3 (1.96-9.15); NEUTROPHILS PERCENT AUTO 70 % (41-73); NRBC ABSOLUTE 0.00 K/mm3 (0.00-0.02); NRBC Auto 0.0 /100 WBC (0.0-0.2); Platelet Count 391 K/mm3 (150-400); RDW Coefficient Variation 12.9 % (11.7-14.2); RDW Standard Deviation 40.5 fL (35.1-46.3)
[2025-03-30 06:18] LABS: Alanine Aminotransfer (ALT/SGP 62.0 U/L (12-78); Albumin, Blood 4.1 g/dL (3.4-5.0); Albumin/Globulin Ratio 0.9 (0.8-1.8); Anion Gap 8.0 mmol/L (3-11); Aspartate Aminotrans (AST/SGOT 28.0 U/L (12-37); Bilirubin, Total 0.3 mg/dL (0.1-1.0); Blood Urea Nitrogen 10.0 mg/dL (8-24); CO2, Blood 25.0 mmol/L (21-32); Calcium, Blood 9.5 mg/dL (8.5-10.1); Chloride, Blood 108.0 mmol/L (98-108); Creatinine, Blood 0.56 mg/dL (0.40-1.00); Globulin, Blood 4.4 g/dL (2.2-4.0); Glucose, Blood 111.0 mg/dL (70-99); Potassium, Blood 4.1 mmol/L (3.5-5.5); Sodium, Blood 137.0 mmol/L (136-145); Total Protein, Blood 8.5 g/dL (6.4-8.2)
== END 2025-03-30 11:39 | disposition home or self-care (01) ==
LOC: ER 04:12 → EOR 04:13
PROVIDERS: ADMIT Emergency Medicine
DX: R45.851 Suicidal ideations (principal); R45.850 Homicidal ideations; F03.911 Unspecified dementia, unspecified severity, with agitation; F43.10 Post-traumatic stress disorder, unspecified; F20.9 Schizophrenia, unspecified; Z87.891 Personal history of nicotine dependence; Z79.899 Other long term (current) drug therapy; Z88.2 Allergy status to sulfonamides; Z91.018 Allergy to other foods
CPT/HCPCS: 80053; 81001; 85025; 87086; 93005; 93010; 99285-25; A9270; G0378

== ENCOUNTER 2025-04-03 13:46 | Observation (INO) | payer OTHER ==
[~2025-04-03] VITALS: Ht 162.6 cm; Wt 92.1 kg
[2025-04-03 15:15] LABS: BASOPHILS ABSOLUTE AUTO 0.04 K/mm3 (0.00-0.23); BASOPHILS PERCENT AUTO 1 % (0-2); EOSINOPHILS ABSOLUTE AUTO 0.06 K/mm3 (0.00-0.68); EOSINOPHILS PERCENT AUTO 1 % (0-6); Hematocrit 41.5 % (33.0-51.0); Hemoglobin 13.8 g/dL (11.5-16.0); IMMATURE GRAN ABSOLUTE AUTO 0.01 K/mm3 (0.00-0.10); IMMATURE GRAN PERCENT AUTO 0 % (0-1); LYMPHOCYTES ABSOLUTE AUTO 2.11 K/mm3 (0.84-5.20); LYMPHOCYTES PERCENT AUTO 34 % (21-46); MONOCYTES ABSOLUTE AUTO 0.39 K/mm3 (0.16-1.47); MONOCYTES PERCENT AUTO 6 % (4-13); Mean Corpuscular HGB Conc 33.3 g/dL (31.5-36.5); Mean Corpuscular Volume 87 fL (80-100); NEUTROPHILS ABSOLUTE AUTO 3.52 K/mm3 (1.96-9.15); NEUTROPHILS PERCENT AUTO 57 % (41-73); NRBC ABSOLUTE 0.00 K/mm3 (0.00-0.02); NRBC Auto 0.0 /100 WBC (0.0-0.2); Platelet Count 407 K/mm3 (150-400); RDW Coefficient Variation 12.9 % (11.7-14.2); RDW Standard Deviation 40.6 fL (35.1-46.3)
[2025-04-03 15:45] LABS: Acetaminophen, Random 6.4 ug/mL (10.0-30.0); Alanine Aminotransfer (ALT/SGP 59 U/L (12-78); Albumin, Blood 3.8 g/dL (3.4-5.0); Albumin/Globulin Ratio 0.9 (0.8-1.8); Anion Gap 8 mmol/L (3-11); Aspartate Aminotrans (AST/SGOT 22 U/L (12-37); Bilirubin, Total 0.2 mg/dL (0.1-1.0); Blood Urea Nitrogen 10 mg/dL (8-24); CO2, Blood 27 mmol/L (21-32); Calcium, Blood 9.3 mg/dL (8.5-10.1); Chloride, Blood 107 mmol/L (98-108); Creatinine, Blood 0.69 mg/dL (0.40-1.00); Ethanol (Alcohol), Blood, Med <3 mg/dL; Globulin, Blood 4.2 g/dL (2.2-4.0); Glucose, Blood 119 mg/dL (70-99); Potassium, Blood 4.7 mmol/L (3.5-5.5); Salicylate <1.7 mg/dL (2.8-20.0); Sodium, Blood 137 mmol/L (136-145); Total Protein, Blood 8.0 g/dL (6.4-8.2)
[2025-04-03 16:47] LABS: Source, Urine Clean Catch
[2025-04-03] MEDS ORDERED: Haloperidol Lactate Inj. 5 MG/ML Injection IM ONE (16:50)
[2025-04-03 17:10] LABS: Bilirubin, Urine Neg (Neg); Glucose Qualitative, Urine Neg (Neg); Ketones, Urine 1+ (Neg); Leukocyte Esterase, Urine Neg (Neg); Protein, Urine Neg (Neg); Specific Gravity, Urine 1.010 (1.003-1.022); Urobilinogen, Urine NORM (Normal)
[2025-04-03 17:23] LABS: Color, Urine Pale Yellow (P-Yellow)
[2025-04-03 17:25] LABS: Red Blood Cells, Urine 0-2 /hpf (0-2); U Amphetamine Screen Not Detected; U Barbituate Screen Not Detected; U Benzodiazapine Screen DETECTED; U Buprenorphine Screen Not Detected; U Cannabinoids Screen Not Detected; U Cocaine Screen Not Detected; U Methadone Screen Not Detected; U Methamphetamine Screen Not Detected; U Opiates Screen Not Detected; U Oxycodone Screen Not Detected; U Phencyclidine Screen Not Detected; White Blood Cells, Urine 0-2 /hpf (0-5)
[2025-04-04] MEDS ORDERED: Haloperidol Decanoate 50 MG / ML 1ML Amp IM ONE (14:30)
[2025-04-04 19:49] LABS: Source, Urine Clean Catch
[2025-04-04 19:55] LABS: Bilirubin, Urine Neg (Neg); Glucose Qualitative, Urine Neg (Neg); Ketones, Urine Neg (Neg); Leukocyte Esterase, Urine Neg (Neg); Protein, Urine Neg (Neg); Specific Gravity, Urine 1.015 (1.003-1.022); Urobilinogen, Urine NORM (Normal)
[2025-04-04 20:21] LABS: Color, Urine Pale Yellow (P-Yellow)
[2025-04-05 11:12] VITALS: BP 117/82
== END 2025-04-05 15:59 | disposition home or self-care (01) ==
LOC: ER 13:46 → EOR 15:59
PROVIDERS: Emergency Medicine; ADMIT Student in an Organized Health Care Education/Training Program
DX: R45.850 Homicidal ideations (principal); F03.911 Unspecified dementia, unspecified severity, with agitation; E66.9 Obesity, unspecified; Z68.34 Body mass index [BMI] 34.0-34.9, adult; Z87.891 Personal history of nicotine dependence; Z79.899 Other long term (current) drug therapy; Z88.2 Allergy status to sulfonamides; Z91.018 Allergy to other foods
CPT/HCPCS: 80053; 80320; 81001; 81003; 81025; 85025; 87086; 96372; 99285-25; A9270; G0378; G0480; J1630; J1631

== ENCOUNTER 2025-04-08 18:56 | Emergency (ER) | payer OTHER ==
[~2025-04-08] VITALS: Ht 162.6 cm; Wt 92.1 kg
[2025-04-08 19:17] VITALS: BP 143/100
[2025-04-08 19:49] LABS: Source, Urine Clean Catch
[2025-04-08 20:01] LABS: Bilirubin, Urine Neg (Neg); Color, Urine Yellow (P-Yellow); Glucose Qualitative, Urine Neg (Neg); Ketones, Urine Neg (Neg); Leukocyte Esterase, Urine 2+ (Neg); Protein, Urine 1+ (Neg); Specific Gravity, Urine 1.010 (1.003-1.022); Urobilinogen, Urine NORM (Normal)
[2025-04-08 20:14] LABS: U Amphetamine Screen Not Detected; U Barbituate Screen Not Detected; U Benzodiazapine Screen DETECTED; U Buprenorphine Screen Not Detected; U Cannabinoids Screen Not Detected; U Cocaine Screen Not Detected; U Methadone Screen Not Detected; U Methamphetamine Screen Not Detected; U Opiates Screen Not Detected; U Oxycodone Screen Not Detected; U Phencyclidine Screen Not Detected
[2025-04-08 20:18] LABS: Red Blood Cells, Urine Not Seen /hpf (0-2)
[2025-04-08] MEDS ORDERED: ABILIFY MYCITE10 M2 PO (20:32)
[2025-04-08] MEDS ORDERED: CLON.5 PO (20:33)
[2025-04-08] MEDS ORDERED: DIVA125 PO (20:33)
[2025-04-08] MEDS ORDERED: MIRALAX1714 PO (20:34)
[2025-04-08] MEDS ORDERED: Haloperidol Lactate Inj. 5 MG/ML Injection IM ONE (21:25)
[2025-04-08] MEDS ORDERED: Lidocaine 2% Viscous Soln 15 ML UDC PO ONE (22:10)
== END 2025-04-09 13:05 | disposition home or self-care (01) ==
LOC: ER 18:56
PROVIDERS: Student in an Organized Health Care Education/Training Program
DX: R45.851 Suicidal ideations (principal); F03.911 Unspecified dementia, unspecified severity, with agitation; T50.916A Underdosing of multiple unspecified drugs, medicaments and biological substances, initial encounter; Z91.148 Patient's other noncompliance with medication regimen for other reason; Z87.891 Personal history of nicotine dependence; Z88.2 Allergy status to sulfonamides; Z91.018 Allergy to other foods; Z79.899 Other long term (current) drug therapy; Z59.89 Other problems related to housing and economic circumstances
CPT/HCPCS: 81001; 81025; 87086; 93005; 93010; 99285-25; A9270; J1630

== ENCOUNTER 2025-04-09 16:57 | Emergency (ER) | payer OTHER ==
[~2025-04-09] VITALS: Ht 160 cm; Wt 68.0 kg
[~2025-04-09 16:57] MED LIST changes: +ABILIFY MYCITE10 M2 PO; +CLON.5 PO; +DIVA125 PO; +MIRALAX1714 PO
[2025-04-09 17:07] VITALS: BP 154/98
== END 2025-04-09 17:10 | disposition home or self-care (01) ==
LOC: ER 16:57
DX: R45.1 Restlessness and agitation (principal); Z88.2 Allergy status to sulfonamides; Z91.018 Allergy to other foods; Z79.899 Other long term (current) drug therapy; F43.10 Post-traumatic stress disorder, unspecified; Z87.891 Personal history of nicotine dependence
CPT/HCPCS: 99284

== ENCOUNTER → 2025-07-09 | Outpatient (CLI) | payer OTHER ==
[2025-07-09 18:06] LABS: Bacterial Vaginosis PCR Negative (NEGATIVE); Candida Group, PCR NOT DETECTED (NOT DETECT); Candida glabrata-krusei, PCR NOT DETECTED (NOT DETECT)
[2025-07-09 18:37] LABS: Chlamydia Trachomatis Vaginal NOT DETECTED (NOT DETECT); Neisseria Gonorrhoea Vaginal NOT DETECTED (NOT DETECT)
== END | disposition home or self-care (01) ==
LOC: LAB SHORT 15:19 → LAB 15:19
PROVIDERS: Chiropractor
DX: N89.8 Other specified noninflammatory disorders of vagina (principal); R30.0 Dysuria
CPT/HCPCS: 81515; 87086; 87491; 87591